=== PATIENT | male | born 1950 | race Caucasian/White ===

== ENCOUNTER 2020-08-06 12:12 | Inpatient (IN) ==
[~2020-08-06 12:12] MED LIST: CLOPIDOGREL BISULFATE 300 MG TAB PO STA; HEPARIN (PORCINE) 1000 UNIT/ML 10 ML (CATH LAB USE ONLY) ONE; MIDAZOLAM HCL 1 MG/ML 2ML VIAL ONE; NITROGLYCERIN SL 0.4 MG/TAB TAB SL PRN; NITROGLYCERIN/D5W 100MCG/ML 20ML SYR ONE; TICAGRELOR 90 MG TAB PO ONE; fentaNYL citrate 100 MCG/2 ML VIAL ONE; niCARdipine HCL INJ 2.5 MG/ML 10 ML AMP ONE
[2020-08-06] MEDS ORDERED: SODIUM CHLORIDE 0.9% 500 ML IV SCH (12:15)
--- NOTE | 2020-08-06 12:24 | Pre Anesthesia Assessment ---
Date of Service August 06, 2020 Pre Sedation Assessment Cardiovascular RRR, no murmur, no edema Respiratory normal respiratory effort, lungs clear to auscultation Pre-Sedation Airway Assessment Smoking Status: Never smoker Hx Sleep Apnea: No Hx Difficult Intubation: No Short, Thick Neck: No Thyromental Distance: > or= 3.5 Finger Breadths Oral Cavity: + WNL Mallampati Class: III ASA: ASA4 Procedure Planning Contraindications for Sedation: none Current Medications Reviewed: Yes Notes The planned sedation has been discussed with the patient. Informed Consent was obtained. I have identified the patient, determined the appropriateness of sedation and have assessed the patient immediately prior to the procedure. All medicine(s) and interventions are by my order.
--- NOTE | 2020-08-06 12:25 | Cardiology Consultation ---
Date of Consultation August 06, 2020 Assessment & Plan (1) Acute LA: Presentation consistent with anterior STEMI and recommend proceeding with emergent cardiac catheterization and likely primary PCI. No apparent contraindications to procedure. Discussed risks, benefits, alternatives of procedure with patient and they are willing to proceed. Given IV heparin and ticagrelor 180 mg in the ED. Further recommendations pending findings of coronary angiography. History of Present Illness History of Present Illness 70-year-old male here with acute chest pain and ECG concerning for acute LA. Patient seen emergently in the ED after heart alert activated from the field. No prior cardiac history. Cardiac risk factors include type 2 diabetes, hypertension, dyslipidemia and family history of premature CAD. Other medical issues include osteoarthritis. 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 Describes substernal pain with associated nausea, diaphoresis. Denies si milar symptoms in the past. Initially presented to his PCP where ECG showed right bundle branch block with anterior ST elevations. Given 2 sublingual nitroglycerin with SBP to the 90s. Chest pain at time of arrival 3-08/11. Hemodynamically stable. EKG again showed anterior ST elevations. Allergies Allergy/AdvReac Type Severity Reaction Status Date / Time Sulfa (Sulfonamide Allergy Unknown HIVES Unverified 02/23/20 23:00 Antibiotics) Penicillins AdvReac Mild NAUSEA, Unverified 02/23/20 23:00 VOMITING Home Medications Medication Instructions Recorded Confirmed Type diclofenac sodium 75 mg PO BID 02/23/20 08/06/20 History lisinopril 10 mg PO DAILY 02/23/20 08/06/20 History metformin 1,000 mg PO BID 02/23/20 08/06/20 History rosuvastatin 5 mg PO DAILY 02/23/20 08/06/20 History cyanocobalamin (vitamin B-12) 1,000 mcg PO DAILY 08/06/20 08/06/20 History Patient History Medical History AAA (abdominal aortic aneurysm) Arthritis Hypercholesterolemia Hypertension Hypoglycemic episode in patient with diabetes mellitus Rheumatoid arthritis T2DM (type 2 diabetes mellitus) Surgical History History of colonoscopy S/P rotator cuff repair Family History Father Myocardial infarction, Onset Age: 63 Mother , 78 Myocardial infarction Diabetes Brother Myocardial infarction, Onset Age: 53 Sister Myocardial infarction, Onset Age: 63 Coronary heart disease Social History Smoking Status: Never smoker packs per day: 1; Years Smoked: 15; Hx Alcohol Use: No Hx Substance Use: No Preferred Language: Polish Communication Ability: Effective Television Installer Helper Required: No Beliefs That Will Affect Care: None marital status: Current Living Situation: Spouse current occupational status: employed 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 Other Information That Helps Us Care for You: No Feels Safe at Home: Yes Safety Concerns: Feels Safe At This Time Assistive Devices: Glasses Review of Systems Review of Systems: Not obtained the setting of emergent situation Physical Exam Physical Exam: General: Uncomfortable, diaphoretic HEENT: Sclerae anicteric, Mask in place Lungs: Clear to auscultation bilaterally Cardiac: Regular rate and rhythm Vascular: 2+ radial bilaterally Abdomen: Soft, nontender Extremities: Well perfused, no peripheral edema Neuro: Nonfocal Psych: Alert orient x3, normal affect and mood PG Care Time/CCT Total # of Minutes Spent Total Time Spent with Patient: Total time spent is greater than 50% in coordination of care (as documented) at patient's floor/unit and/or counseling patient: Coding Level of Care Code 64281 Initial Inpt Care Lvl 3 Diagnoses Acute LA I21.9
--- NOTE | 2020-08-06 12:31 | Emergency Department Note ---
History of Present Illness General Chief Complaint: Heart Alert Stated Complaint: Chest Pain/Heart Alert Source: patient Mode of arrival: EMS Limitations: no limitations History of Present Illness Provider Complaint: chest pain This is a 70-year-old male who presents to the ED with a chief complaint of chest pain. 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 The patient states that he went to the [facility] office to be evaluated by his PCP. A twelve-lead EKG there showed an anterior wall CA. He was sent here by EMS. He was given 324 mg of aspirin p.o. as well as a couple of nitroglycerin sublingual's. EMS reports that the blood pressure dropped about 90 systolic with this. He had some nausea associated as well as some shortness of breath. EMS provided Zofran 4 mg IV and 100 mcg of IV fentanyl. On arrival his pain is about a 3 out of 10. He reports it is a diffuse chest pain/pressure. Nonradiating. He does report a history of non-i nsulin-dependent diabetes. He is also being treated for hypertension and cholesterol. Home Medications Medication Instructions Recorded Confirmed Type aspirin 81 mg PO DAILY 02/23/20 02/23/20 History diclofenac sodium 75 mg PO BID 02/23/20 02/23/20 History lisinopril 10 mg PO DAILY 02/23/20 02/23/20 History metformin 1,000 mg PO BID 02/23/20 02/23/20 History rosuvastatin 5 mg PO DAILY 02/23/20 02/23/20 History lidocaine 1 patch TOP DAILY #15 ea 02/24/20 Rx tramadol 50 mg PO Q8H PRN #9 tab 02/24/20 Rx Allergies Allergy/AdvReac Type Severity Reaction Status Date / Time Sulfa (Sulfonamide Allergy Unknown HIVES Unverified 02/23/20 23:00 Antibiotics) Penicillins AdvReac Mild NAUSEA, Unverified 02/23/20 23:00 VOMITING Past Med/Surg History Medical History (Updated 08/06/20 @ 12:31 by [place] Reed MD) Arthritis Hypercholesterolemia Hypertension Hypoglycemic episode in patient with diabetes mellitus Rheumatoid arthritis Surgical History S/P rotator cuff repair Family History (Updated 08/06/20 @ 12:28 by Uzair Dickey DO) Other Myocardial infarction Social History Smoking Status: Never smoker Preferred Language: Japanese Feels Safe at Home: Yes Review of Systems A total of 10 systems reviewed and were otherwise negative Physical Exam Vital Signs Vital Signs - 24 hr 08/06/20 12:15 Temperature 36.5 C Temperature Source Oral Pulse Rate 94 H Pulse Rhythm Regular Pulse Strength Normal Respiratory Rate 20 Respiratory Effort / Characteristics Non-Labored Spontaneous Respiratory Depth Normal Respiratory Pattern Regular Blood Pressure 101/76 Blood Pressure Mean 84 Blood Pressure Position Sitting Pulse Oximetry 94 Oxygen Delivery Method Room Air Sepsis Recent Fever Within 48 Hours No Sepsis New/Unexplained Change in Mental Status No Sepsis Action Taken by Nursing No Action Required CONSTITUTIONAL/VITAL SIGNS: Reviewed / noted above. GENERAL: Non-toxic in appearance. INTEGUMENTARY: Warm, dry, and [place]. HEAD: Normocephalic. EYES: without scleral icterus or trauma. ENT/OROPHARYNX: clear and moist. LYMPHADENOPATHY/NECK: Is supple without lymphadenopathy or meningismus. RESPIRATORY: Lungs clear and equal. CARDIOVASCULAR: Regular rate and rhythm. GI/ABDOMEN: Soft and nontender. No organomegaly or pulsatile mass. No rebound or guarding. Normal bowel sounds. EXTREMITIES: Warm and well perfused. BACK: No CVA tenderness. NEUROLOGICAL: Intact without focal deficits. PSYCHIATRIC: normal affect. MUSCULOSKELETAL: Normally developed with good muscle tone. TRIAGE NURSING DOCUMENTATION REVIEWED. Course Administered Medications Discontinued Medications Eptifibatide (Eptifibatide 2 Mg/Ml 10 Ml Vial (Regulatory Affairs Director Use Only)) Confirm A dministered Dose 20 mg IV .STK-MED ONE Stop: 08/06/20 13:46 Last Admin: 08/06/20 14:08 Dose: 10.7 ml Documented by: [id number] Fentanyl Citrate (Fentanyl Citrate 100 Mcg/2 Ml Vial) Confirm Administered Dose 100 mcg .ROUTE .STK-MED ONE Stop: 08/06/20 12:06 Last Admin: 08/06/20 14:04 Dose: 100 mcg Documented by: [id number] Fentanyl Citrate (Fentanyl Citrate 100 Mcg/2 Ml Vial) Confirm Administered Dose 100 mcg .ROUTE .STK-MED ONE Stop: 08/06/20 13:36 Last Increment: 08/06/20 14:07 Dose: 25 mcg Documented by: [id number] Heparin Sodium (Porcine) (Heparin (Porcine) 1000 Unit/Ml 10 Ml (Regulatory Affairs Director Use Only)) Confirm Administered Dose 10,000 units .ROUTE .STK-MED ONE Stop: 08/06/20 12:06 Last Admin: 08/06/20 14:06 Dose: 10,000 units Documented by: [id number] Heparin Sodium (Porcine) (Heparin (Porcine) 1000 Unit/Ml 10 Ml (Regulatory Affairs Director Use Only)) Confirm Administered Dose 10,000 units .ROUTE .ST-MED ONE Stop: 08/06/20 12:55 Last Admin: 08/06/20 14:07 Dose: 8,000 units Documented by: [id number] Heparin Sodium/Sodium Chloride (Heparin In Nss Infusion 1000 Unit/500 Ml (2 U/Ml) Bag) Confirm Administered Dose 3,000 units IV .[facility] ONE Stop: 08/06/20 12:07 Last Admin: 08/06/20 13:20 Dose: 3,000 units Documented by: [id number] Midazolam HCl (Midazolam Hcl 1 Mg/Ml 2ml Vial) Confirm Administered Dose 2 mg .ROUTE .ST-MED ONE Stop: 08/06/20 12:07 Last Admin: 08/06/20 13:21 Dose: 2 mg Documented by: [id number] Midazolam HCl (Midazolam Hcl 1 Mg/Ml 2ml Vial) Confirm Administered Dose 2 mg .ROUTE .ST-MED ONE Stop: 08/06/20 13:16 Last Admin: 08/06/20 14:07 Dose: 2 mg Documented by: [id number] Midazolam HCl (Midazolam Hcl 1 Mg/Ml 2ml Vial) Confirm Administered Dose 2 mg .ROUTE .[place]-MED ONE Stop: 08/06/20 13:36 Last Increment: 08/06/20 14:08 Dose: 1 mg Documented by: [id number] Nicardipine HCl (Nicardipine Hcl Inj 2.5 Mg/Ml 10 Ml Amp) Confirm Administered Dose 25 mg .ROUTE .ST[facility]ockets-MED ONE Stop: 08/06/20 12:06 Last Admin: 08/06/20 13:20 Dose: 25 mg Documented by: [id number] Nitroglycerin/Dextrose (Nitroglycerin/D5w 100mcg/Ml 20ml Syr) Confirm Administered Dose 2,000 mcg .ROUTE .[facility]-MED ONE Stop: 08/06/20 12:07 Last Admin: 08/06/20 13:21 Dose: 2,000 mcg Documented by: [id number] Norepinephrine Bitartrate (Norepinephrine Bitartrate 1 Mg/Ml 4 Ml Vial (Regulatory Affairs Director Use Only)) Confirm Administered Dose 8 mg .ROUTE .STK-MED ONE Stop: 08/06/20 12:34 Last Admin: 08/06/20 14:07 Dose: Not Given Documented by: [id number] Ticagrelor (Ticagrelor 90 Mg Tab) Confirm Administered Dose 180 mg PO .STK-MED ONE Stop: 08/06/20 12:13 Last Admin: 08/06/20 13:22 Dose: 180 mg Documented by: [id number] Medical Decision Making Differential Diagnosis The differential that was considered includes acute myocardial infarction, acute coronary syndrome, myocarditis, pericarditis, pericardial effusions /tamponade, esophageal perforation, thoracic aortic dissection, pulmonary embolism, pneumonia, pneumothorax, pancreatitis, shingles, acute cholecystitis, perforated abdominal viscus. Medical Records Attestation: I reviewed the patient's medical records. Home Medications Current Medication List: was personally reviewed by me Laboratory Data Attestation: I reviewed the patient's lab results. Result diagrams: 08/06/20 12:19 08/06/20 12:19 Labs: Lab Results 08/06/20 08/06/20 08/06/20 Range/Units 12:19 12:19 12:19 WBC 9.59 (4.8-10.8) K/uL RBC 4.16 L (4.7-6.1) M/uL Hgb 14.1 (14.0-18.0) g/dL Hct 41.2 L (42-52) % MCV 99.0 (80-100) fL MCH 33.9 (25-34) pg MCHC 34.2 (32-36) g/dL RDW Std Deviation 50.3 H (36.4-46.3) fL RDW Coeff of Kev 14.0 (11.5-14.5) % Plt Count 195 (130-400) K/uL MPV 9.3 (7.4-10.4) fL Immature Gran % (Auto) 0.4 % Neut % (Auto) 69.9 % Lymph % (Auto) 22.4 % Greer % (Auto) 6.8 % Eos % (Auto) 0.2 % Baso % (Auto) 0.3 % Neut # (Auto) 6.70 H (1.4-6.5) K/uL Lymph # (Auto) 2.15 (1.2-3.4) K/uL Greer # (Auto) 0.65 H (0.11-0.59) K/uL Eos # (Auto) 0.02 (0-0.5) K/uL Baso # (Auto) 0.03 (0-0.2) K/uL Immature Gran # (Auto) 0.04 H (0.00-0.02) K/uL PT 10.3 (9.0-12.0) Seconds INR 1.0 (0.9-1.1) APTT 21.9 (21.0-31.0) Seconds PTT Ratio 0.8 Sodium 139 (136-145) mmol/L Potassium 4.3 (3.5-5.1) mmol/L Chloride 112 H (98-107) mmol/L Carbon Dioxide 17 L (21-32) mmol/L Anion Gap 10.0 (3-11) BUN 24 H (7-18) mg/dl Creatinine 1.41 H (0.6-1.4) mg/dl Est Cr Clr Drug Dosing 62.0 ml/min Est GFR ( Amer) 57.7 Est GFR (Non-Af Amer) 49.8 BUN/Creatinine Ratio 17.0 (10-20) Glucose 234 H (70-99) mg/dl Calcium 8.9 (8.5-10.1) mg/dl Magnesium 1.8 (1.8-2.4) mg/dl Total Bilirubin 0.4 (0.2-1) mg/dl AST 11 L (15-37) U/L ALT 30 (12-78) U/L Alkaline Phosphatase 51 (45-117) U/L Total Creatine Kinase 77 (39-308) U/L CK-MB (CK-2) 3.0 (0.5-3.6) ng/ml CK/CKMB % Calc 3.9 H (0-3.0) Troponin I 0.055 H* (0-0.045) ng/ml Total Protein 7.0 (6.4-8.2) gm/dl Albumin 3.7 (3.4-5.0) gm/dl Globulin 3.3 (2.5-4.0) gm/dl Albumin/Globulin Ratio 1.1 (0.9-2) Lipase 93 (73-393) U/L TSH 0.876 (0.300-4.500) uIu/ml ECG Data Attestation: I personally reviewed and interpreted this ECG as follows: Indication: chest pain Rate (beats per minute): 90 Rhythm: normal sinus Findings: + RBBB and + ST elevation (Anterior); no PVC Change: the following changes noted (ST elevation is now noted compared to February 2020 from the [facility] office.) MDM Narrative This is a 70-year-old male who presents to the ED with a chief complaint of chest pain that started around 9:30 AM. Prehospital EKG shows acute anterior wall CA. Heart alert was called prior to the patient's arrival. The patient re ceived p.o. aspirin, IV Zofran, IV fentanyl, 2 sublingual nitroglycerin in route. Here he received p.o. Brilinta and IV heparin bolus. The patient was evaluated by the admitting counselor, Dr. Reed, who took the patient to the Regulatory Affairs Director for further intervention. Impression & Plan Acute anterior wall CA Critical Care Time Critical Care Time: Yes Total Critical Care Time: 30 I have personally spent 30 minutes of critical care time in the direct managemen t of this patient. This includes bedside care, interpretation of diagnostic studies, and testing, discussion with consultants, patient, and family members, and other required patient management activities. This 30 minutes is in excess of all separately billable procedures. Discharge Plan Visit Data Chief Complaint: Heart Alert Stated Complaint: Chest Pain/Heart Alert ED Provider: Uzair Dickey Discharge Problem: Acute anterior wall CA Patient Disposition: Admitted As Inpatient Discharge Instructions Interventions: ED Discharge Assessment Last Done: 08/06/20 12:25
[2020-08-06 12:32] LABS: Basophils # (auto) 0.03 K/uL (0-0.2); Basophils % (auto) 0.3 %; Eosinophils # (auto) 0.02 K/uL (0-0.5); Eosinophils % (auto) 0.2 %; Hematocrit (blood only) 41.2 % (42-52); Hemoglobin 14.1 g/dL (14.0-18.0); Immature Granulocytes # (auto) 0.04 K/uL (0.00-0.02); Immature Granulocytes % (auto) 0.4 %; Lymphocytes # (auto) 2.15 K/uL (1.2-3.4); Lymphocytes % (auto) 22.4 %; Mean Corpuscular Hemoglobin 33.9 pg (25-34); Mean Corpuscular Hgb Conc 34.2 g/dL (32-36); Mean Platelet Volume 9.3 fL (7.4-10.4); Monocytes # (auto) 0.65 K/uL (0.11-0.59); Monocytes % (auto) 6.8 %; Neutrophils % (auto) 69.9 %; Platelet Count 195 K/uL (130-400); RDW Standard Deviation 50.3 fL (36.4-46.3); Red Blood Count 4.16 M/uL (4.7-6.1); White Blood Count 9.59 K/uL (4.8-10.8)
[2020-08-06] MEDS ORDERED: NOREPINEPHRINE BITARTRATE 1 MG/ML 4 ML VIAL (CATH LAB USE ONLY) ONE (12:33)
[2020-08-06 12:46] LABS: Albumin Level 3.7 gm/dl (3.4-5.0); Calcium 8.9 mg/dl (8.5-10.1); Est GFR (African American) 57.7; Est GFR (Non-African American) 49.8; Magnesium 1.8 mg/dl (1.8-2.4); Potassium 4.3 mmol/L (3.5-5.1)
[2020-08-06] MEDS ORDERED: HEPARIN (PORCINE) 1000 UNIT/ML 10 ML (CATH LAB USE ONLY) ONE (12:54)
[2020-08-06 13:01] LABS: Partial Thromboplastin Ratio 0.8; Partial Thromboplastin Time 21.9 Seconds (21.0-31.0); Prothrombin Time 10.3 Seconds (9.0-12.0)
[2020-08-06 13:04] LABS: Albumin Globulin Ratio 1.1 (0.9-2); Bilirubin,Total 0.4 mg/dl (0.2-1); Globulin 3.3 gm/dl (2.5-4.0); Thyroid Stimulating Hormone 0.876 uIu/ml (0.300-4.500); Troponin I 0.055 ng/ml (0-0.045)
[2020-08-06] MEDS ORDERED: MIDAZOLAM HCL 1 MG/ML 2ML VIAL ONE ×2 (13:15→13:35)
[2020-08-06] MEDS ORDERED: fentaNYL citrate 100 MCG/2 ML VIAL ONE (13:35)
[2020-08-06] MEDS ORDERED: EPTIFIBATIDE 0.75 MG/ML 75MG VIAL (CATH LAB USE ONLY) ONE (13:45)
[2020-08-06] MEDS ORDERED: EPTIFIBATIDE 2 MG/ML 10 ML VIAL (CATH LAB USE ONLY) IV ONE (13:45)
--- NOTE | 2020-08-06 14:11 | Post Anesthesia Assessment ---
Date of Service August 06, 2020 Post Sedation Assessment Vital Signs Temp Pulse Resp BP Pulse Ox 08/06/20 12:15 97.7 F 94 H 20 101/76 94 Recovery Score Activity: Moves 4 extremities Respiration: Deep Breath/Cough Circulation: +/-20% PreAnes Value Consciousness: Fully Awake Oxygen Saturation: O2 needed for >90% Discharge Sedation Level of Care: Fast Track Phase II Post Sedation Plan On clinical assessment, the patient appears to have tolerated the sedation without complications. Patient is recovering as anticipated. Patient will continue to be monitored by nursing and may be discharged when sedation discharge criteria are met per below protocol. Upon Completions of procedure up to 15 minutes continue every 5 minute vital signs and the P.A.R. score; then discharge to a Phase I or Fast Track to Phase II per the following guidelines: * Discharge Patient to appropriate Phase II area if PAR is 8 or greater or return to pre- procedure baseline. The post - procedure orders will be as directed. * If PAR score is less than 8 or not return to pre-procedure baseline then patient will follow Phase I monitoring till PAR is reached for Phase II. The Phase I may be done in procedure room or may call to secure a Phase I area. * If naloxone or flumazenil are used for reversal, hold in Phase I for continued monitoring from when last reversal dose was given for a minimum of 60 minutes or longer pending the nurse and/or physician discretion of patient condition before discharge to Phase II. Please call the Sedation Physician to re-evaluate and complete post-note for discharge to Phase II area. Do NOT discharge from procedure sedation or Phase 1 until post- sedation evaluation note is complete by procedure /sedation MD Sedation Discharge Instructions to be given to the patient at discharge to home.
[2020-08-06] MEDS ORDERED: SODIUM CHLORIDE 0.9% 1000ML 1,000 ML IV SCH (14:15)
[2020-08-06] MEDS ORDERED: ACETAMINOPHEN 325 MG TAB PO PRN (14:15)
[2020-08-06] MEDS ORDERED: ONDANSETRON INJ 2 MG/ML 2 ML VIAL IV PRN (14:15)
[2020-08-06] MEDS ORDERED: NITROGLYCERIN SL 0.4 MG/TAB TAB SL PRN (14:15)
[2020-08-06] MEDS ORDERED: EPTIFIBATIDE BOLUS/DRIP IV STA (14:15)
--- NOTE | 2020-08-06 14:15 | Post Operative Brief Note ---
Cardiology Brief Post Op Date of Surgery August 06, 2020 Pre & Post Diagnosis Anterior STEMI Procedure coronary angiography left heart catheterization PCI to proximal to mid LAD (2 ZARA 3.5 x 30, 3.0 x 12 Jeff) PCI to proximal to mid circumflex (1 ZARA 2.75 x 15 Jeff) Metal Mine Inspector Nolan Reed MD Laboratory Machinist Mitchel Estimated Blood Loss 20 Findings See Below 100% proximal LAD occlusion 95% proximal circumflex Severe disease in non-dominant RCA Fluids - Specimens Specimen Description: -- Anesthesia Type RN Sedation Complications none Disposition Accompanied Patient To Recovery: No Disposition: Surgical ICU Overlapping Procedure I was present for: the critical portions of procedure. I was immediately available: during the entire case. Back up surgeon: was not required during procedure.
[2020-08-06] MEDS ORDERED: ICU PROTOCOL FOR HYPERGLYCEMIA PRN (14:22)
[2020-08-06] MEDS ORDERED: CARBOHYDRATES FOR HYPOGLYCEMIA PO PRN (14:43)
[2020-08-06] MEDS ORDERED: GLUCAGON FOR INJ 1 MG VIAL SQ PRN (14:43)
[2020-08-06] MEDS ORDERED: GLUCOSE 10 TABS/TUBE PO PRN (14:43)
[2020-08-06] MEDS ORDERED: GLUCOSE 40% GEL 15 GM TUBE PO PRN (14:43)
[2020-08-06] MEDS ORDERED: DEXTROSE 50% 50 ML SYRINGE IV PRN (14:43)
--- NOTE | 2020-08-06 14:44 | Electrocardiogram Report ---
Test Reason : Blood Pressure : / mmHG Vent. Rate : 101 BPM Atrial Rate : 101 BPM P-R Int : 168 ms QRS Dur : 118 ms QT Int : 354 ms P-R-T Axes : 056 101 -09 degrees QTc Int : 459 ms Sinus tachycardia Incomplete right bundle branch block Possible Right ventricular hypertrophy ST elevation consider anterolateral injury or acute infarct ACUTE AL / STEMI Abnormal ECG When compared with ECG of 14-OCT-2018 10:39, Acute anterior infarction is now Present Confirmed by Nils Ovalle ([id number]) on 08/06/2020 2:44:07 PM Referred By: Confirmed By:Nils Ovalle
--- NOTE | 2020-08-06 14:47 | Critical Care Consultation ---
Date of Consultation August 06, 2020 Assessment & Plan (1) Acute UT: Reason Critically Ill: 70-year-old male with past medical history of type 2 diabetes, hypertension, dyslipidemia who was admitted due to STEMI, now status post cardiac catheterization with PCI and stenting of the LAD & circumflex. Neuro - CAM ICU: NEGATIVE Sedation: None Analgesia: APAP - No current neurological concerns. Cardiac - STEMI - Transferred to the ICU post cath per hospital protocol - Dual antiplatelet therapy with aspirin and Brilinta daily - Patient's rosuvastatin will be increased to high intensity - Beta-blockade with metoprolol tartrate 12.5 mg p.o. twice daily - Nitroglycerin as needed - Continue Lisinopril 2.5 mg p.o. daily - Continue to trend troponins - Lipid profile and A1c in a.m. - Echo tomorrow Hypertension - Lisinopril and metoprolol as above Dyslipidemia - Rosuvastatin increased to 20 mg p.o. daily Respiratory - - No current respiratory concerns. GI - - Carb consistent heart healthy diet RENAL/LYTES - - No significant electrolyte derangement. - Replace lytes as needed. - - No concerns at this time. ENDO - - DMII - BSG monitoring and management per unit protocol. SSI --> insulin gtt per unit protocol. HEME - - Stable H&H. [Will monitor for any drops in the setting of Heparin gtt] ID - - No concerns for infection at this point. Dispo: ICU for monitoring after cardiac catheterization and PCI Thank you for allowing us to be part of this patient's care. Please refer to Dr. Angeles's documentation for any further recommendations. (2) T2DM (type 2 diabetes mellitus): (3) Hypercholesterolemia: (4) Hypertension: Supervising Physician Co-Signing Physician Notes Dr. Weston was resident physician during care of patient. I separately evaluated patient for potts portions of the history and the exam. I was present during the critical portion of medical decision making, and I discussed the case with the resident. I generally agree with the findings and plan. History of Present Illness Attending Physician: Nolan Reed MD History of Present Illness Nilesh Mckeon is a 70-year old male with past medical history of type 2 diabetes, hypertension, dyslipidemia who came to [facility] with a chief complaint of chest pain and EKG concerning for acute UT. He developed chest pain this morning around 9 or 9:30 AM when he was doing some dana work at home. At that point he presented to his PCPs office where he had a twelve-lead EKG done, which was concerning for anterior STEMI. He received aspirin 324 mg and sublingual nitroglycerin twice. He was then sent to the ED here via EMS. On arrival in the ED here his chest pain was about a 3-4 out of 10; he described it as diffuse pain/pressure, nonradiating. He was seen by Cardiology, who considered the presentation to be consistent with anterior STEMI and recommended proceeding with emergent cardiac catheterization and likely PCI. The patient tolerated the procedure well and has now been transferred to the ICU per hospital protocol following cardiac catheterization. Findings of cath were 100% proximal LAD occlusion, 95% proximal circumflex occlusion, severe disease in nondominant RCA. Underwent stenting of proximal to mid LAD and proximal to mid circumflex. On arrival to the ICU the patient is hemodynamically stable, alert and answering questions appropriately. He denied chest pain or shortness of breath. Allergies Allergy/AdvReac Type Severity Reaction Status Date / Time Sulfa (Sulfonamide Allergy Unknown HIVES Unverified 02/23/20 23:00 Antibiotics) Penicillins AdvReac Mild NAUSEA, Unverified 02/23/20 23:00 VOMITING Home Medications Medication Instructions Recorded Confirmed Type diclofenac sodium 75 mg PO BID 02/23/20 08/06/20 History lisinopril 10 mg PO DAILY 02/23/20 08/06/20 History metformin 1,000 mg PO BID 02/23/20 08/06/20 History rosuvastatin 5 mg PO DAILY 02/23/20 08/06/20 History cyanocobalamin (vitamin B-12) 1,000 mcg PO DAILY 08/06/20 08/06/20 History Patient History Medical History AAA (abdominal aortic aneurysm) Arthritis Hypercholesterolemia Hypertension Hypoglycemic episode in patient with diabetes mellitus Rheumatoid arthritis T2DM (type 2 diabetes mellitus) Surgical History History of colonoscopy S/P rotator cuff repair Family History Father Myocardial infarction, Onset Age: 63 Mother , 78 Myocardial infarction Diabetes Brother Myocardial infarction, Onset Age: 53 Sister Myocardial infarction, Onset Age: 63 Coronary heart disease Social History Smoking Status: Never smoker packs per day: 1; Years Smoked: 15; Hx Alcohol Use: No Hx Substance Use: No Preferred Language: Bhutanese Communication Ability: Effective Plate Mounter Required: No Beliefs That Will Affect Care: None marital status: Current Living Situation: Spouse current occupational status: employed 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 Other Information That Helps Us Care for You: No Feels Safe at Home: Yes Safety Concerns: Feels Safe At This Time Assistive Devices: Glasses Review of Systems Review of Systems: All systems reviewed & are unremarkable except as noted in HPI & below Physical Exam Constitutional: WD/WN, vitals as above + obese, cooperative and comfortable; no acute distress Eyes: PERRL, conjunctivae normal, anicteric sclerae ENMT: external ear and nose normal, oropharynx normal Neck: trachea midline, no thyromegaly normal visual inspection Respiratory: normal respiratory effort, lungs clear to auscultation Auscultation: no crackles, no rales, no rhonchi and no wheezes Cardiovascular: RRR, no murmur, no edema Heart Sounds: normal S1 and normal S2; no gallop, no murmur and no cardiac rub Gastrointestinal (Abdomen): normal bowel sounds, soft, nontender, no hepatosplenomegaly Musculoskeletal: no cyanosis or clubbing, extremities motor strength 5/5 Skin: no rashes, warm and dry Neurologic: CN's II-XI intact bilaterally; no focal motor deficits Psychiatric: A+Ox3, euthymic affect Results & Data Results & Data ([facility]) Vital Signs (Past 12 Hours) Vital Signs Temp Pulse Resp BP Pulse Ox 08/06/20 12:15 36.5 C 94 H 20 101/76 94 Resident Activity Tracking Resident Involvement: Resident Care Provided Care Provided: Adult Hospital Medicine
[2020-08-06] MEDS ORDERED: PHARMACY GLYCEMIC MGMT CONSULT PRN (15:01)
--- NOTE | 2020-08-06 15:07 | Electrocardiogram Report ---
Test Reason : Blood Pressure : / mmHG Vent. Rate : 090 BPM Atrial Rate : 090 BPM P-R Int : 198 ms QRS Dur : 144 ms QT Int : 400 ms P-R-T Axes : 050 116 008 degrees QTc Int : 489 ms Normal sinus rhythm Indeterminate axis Right bundle branch block Inferior infarct , age undetermined Serial changes of evolving Anterior infarct Abnormal ECG When compared with ECG of 06-AUG-2020 12:15, (unconfirmed) Serial changes of evolving Anterior infarct are now Present Confirmed by Nils Ovalle ([id number]) on 08/06/2020 3:07:31 PM Referred By: REFERRED SELF Confirmed By:Nils Ovalle
--- NOTE | 2020-08-06 15:12 | History & Physical Report ---
Date of Service August 06, 2020 Assessment & Plan (1) Acute WA: This is a 70-year-old male who has significant past medical history of T2DM, HTN, HLD, arthritis who presented to ED secondary to chest pain while putting on a roof prior to arrival. He developed substernal chest pain around 9:00 this morning while putting on a roof. S/P PCI to LAD and circumflex. 100% prox LAD occluded with PCI and 2 ZARA. 95% prox circumflex with PCI and 1 ZARA. Severe disease in non dominant RCA. Pt admitted to ICU under drug clerk care continue DAPT with asa and brilinta continue integrilin overnight per Dr. Reed Crestor increased from 5mg to 20mg (pt states had myalgias at 10mg so will need to monitor) placed on metoprolol tartrate 12.5mg bid, up titrate as pressure allows placed on lisinopril 2.5mg daily (home dose is 10mg daily) pressures on lower side post op - can uptitrate as bp allows a1c, lipid panel in a.m. obtain echo cycle trops [employer] cardiology consulted (2) JEMMA (acute kidney injury): baseline cr 1.0 bun/cr 24 and 1.41 receiving gentle IVF, metformin on hold monitor/follow bmp (3) T2DM (type 2 diabetes mellitus): last a1c 6.3 06/26 hold metformin lantus/novolog per protocol glycemic pharmacist consulted - appreciate their management (4) Hypertension: BP controlled continue lisinopril/metoprolol uptitrate as bp allows (5) Hypercholesterolemia: continue statin fasting lipid panel in a.m. (6) DVT prophylaxis: on Integrilin overnight Dispo: ICU PCP: Tomy FULL CODE Pt was seen and examined in collaboration with Dr. Daniels, please see addendum Admission and Anticipated Discharge Date Admission Date: August 06, 2020 History of Present Illness Chief Complaint: Chest pain while putting on a roof prior to arrival. Primary Care Provider: Mario Huitron MD This is a 70-year-old male who has significant past medical history of T2DM, HTN, HLD, arthritis who presented to ED secondary to chest pain while putting on a roof prior to arrival. He developed substernal chest pain around 9:00 this morning while putting on a roof. Due to new onset of chest pain he opted to see PCP for further evaluation. In office EKG revealed new incomplete right bundle branch block with ST elevations anteriorly. He received ASA 324 mg, sublingual nitro and EMS was summoned. Patient was made heart alert on arrival and EKG still revealing signs of anterior STEMI. He underwent emergent cardiac catheterization and PCI. He was found to have a proximal LAD 100% occlusion requiring 2 stents and a 95% proximal circumflex occlusion requiring 1 stent. Post PCI he did develop recurrent ischemic EKG changes. Reevaluation revealed blood clots and stent and he underwent balloon angioplasty and continued on Integrilin. He is currently admitted to the ICU without chest pain. He currently denies any acute concerns. He denies fever, chills, sweats, lightheadedness, dizziness, chest pain, shortness with, palpitations, nausea, vomiting, abdominal pain. Prior to today's evaluation he denies any change in his bowel or urinary habits. He does have history of T2DM on Metformin. His last A1c was 6.3 in June 2020. 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 He does not smoke or use alcohol. He did smoke for 15 pack years approximately 25 years ago. He does have significant family history of cardiac disease in both parents as well as brother and sister. Allergies Allergy/AdvReac Type Severity Reaction Status Date / Time Sulfa (Sulfonamide Allergy Unknown HIVES Unverified 02/23/20 23:00 Antibiotics) Penicillins AdvReac Mild NAUSEA, Unverified 02/23/20 23:00 VOMITING Home Medications Medication Instructions Recorded Confirmed Type diclofenac sodium 75 mg PO BID 02/23/20 08/06/20 History lisinopril 10 mg PO DAILY 02/23/20 08/06/20 History metformin 1,000 mg PO BID 02/23/20 08/06/20 History rosuvastatin 5 mg PO DAILY 02/23/20 08/06/20 History cyanocobalamin (vitamin B-12) 1,000 mcg PO DAILY 08/06/20 08/06/20 History Past Med/Surg History Medical History AAA (abdominal aortic aneurysm) Arthritis Hypercholesterolemia Hypertension Hypoglycemic episode in patient with diabetes mellitus Rheumatoid arthritis T2DM (type 2 diabetes mellitus) Surgical History History of colonoscopy S/P rotator cuff repair Family History Father Myocardial infarction, Onset Age: 63 Mother , 78 Myocardial infarction Diabetes Brother Myocardial infarction, Onset Age: 53 Sister Myocardial infarction, Onset Age: 63 Coronary heart disease Social History Smoking Status: Never smoker packs per day: 1; Years Smoked: 15; Hx Alcohol Use: No Hx Substance Use: No Preferred Language: Georgian Communication Ability: Effective Class C Truck Driver Required: No Beliefs That Will Affect Care: None marital status: Current Living Situation: Spouse current occupational status: employed 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 Other Information That Helps Us Care for You: No Feels Safe at Home: Yes Safety Concerns: Feels Safe At This Time Assistive Devices: Glasses Review of Systems Review of Systems: All systems reviewed & are unremarkable except as noted in HPI & below Physical Exam Physical Exam: Constitutional: WD/WN, vitals as above, NAD, sitting up in bed, pleasant, conversing easily Head: Normocephalic, Atraumatic Eyes: PERRL, conjunctivae normal, anicteric sclerae ENMT: external ear and nose normal, oropharynx normal Neck: trachea midline, no thyromegaly normal visual inspection Respiratory: normal respiratory effort, lungs clear to auscultation, no wheeze, rales, rhonchi. Normal insp/exp effort, no accessory muscle use Cardiovascular: RRR, no murmur, trace pretibial edema, radial band 2 RUE vessels: no JVD or carotid bruit Chest: normal inspection of chest Abdomen: normal bowel sounds, soft, nontender, no hepatosplenomegaly Musculoskeletal: no cyanosis or clubbing, extremities motor strength 5/5 Skin: no rashes, warm and dry normal turgor Neurologic: PERRL, EOMI, accommodation nl, no face palsy, no dysarthria CN's II-XI intact bilaterally and moves all extremities Psychiatric: A+Ox3, euthymic affect Lymphatic: no cervical or axillary lymphadenopathy : deferred Results & Data Results & Data ([facility]) Vital Signs (Past 12 Hours) Vital Signs Temp Pulse Resp BP Pulse Ox 08/06/20 12:15 36.5 C 94 H 20 101/76 94 Diagnostic Findings Procedure coronary angiography left heart catheterization PCI to proximal to mid LAD (2 ZARA 3.5 x 30, 3.0 x 12 [place]) PCI to proximal to mid circumflex (1 ZARA 2.75 x 15 [place]) Professional Bass Fisherman Nolan Reed MD Hobber Mitchel Estimated Blood Loss 20 Findings See Below 100% proximal LAD occlusion 95% proximal circumflex Severe disease in non-dominant RCA Medications Administered Discontinued Medications Eptifibatide (Eptifibatide 2 Mg/Ml 10 Ml Vial (Study Abroad Advisor Use Only)) Confirm Administered Dose 20 mg IV .STK-MED ONE Stop: 08/06/20 13:46 Last Admin: 08/06/20 14:08 Dose: 10.7 ml Documented by: [id number] Fentanyl Citrate (Fentanyl Citrate 100 Mcg/2 Ml Vial) Confirm Administered Dose 100 mcg .ROUTE .STK-MED ONE Stop: 08/06/20 12:06 Last Admin: 08/06/20 14:04 Dose: 100 mcg Documented by: [id number] Fentanyl Citrate (Fentanyl Citrate 100 Mcg/2 Ml Vial) Confirm Administered Dose 100 mcg .ROUTE .STK-MED ONE Stop: 08/06/20 13:36 Last Increment: 08/06/20 14:07 Dose: 25 mcg Documented by: [id number] Heparin Sodium (Porcine) (Heparin (Porcine) 1000 Unit/Ml 10 Ml (Study Abroad Advisor Use Only)) Confirm Administered Dose 10,000 units .ROUTE .STK-MED ONE Stop: 08/06/20 12:06 Last Admin: 08/06/20 14:06 Dose: 10,000 units Documented by: [id number] Heparin Sodium (Porcine) (Heparin (Porcine) 1000 Unit/Ml 10 Ml (Study Abroad Advisor Use Only)) Confirm Administered Dose 10,000 units .ROUTE .STK-MED ONE Stop: 08/06/20 12:55 Last Admin: 08/06/20 14:07 Dose: 8,000 units Documented by: [id number] Heparin Sodium/Sodium Chloride (Heparin In Nss Infusion 1000 Unit/500 Ml (2 U/Ml) Bag) Confirm Administered Dose 3,000 units IV .STK-MED ONE Stop: 08/06/20 12:07 Last Admin: 08/06/20 13:20 Dose: 3,000 units Documented by: [id number] Midazolam HCl (Midazolam Hcl 1 Mg/Ml 2ml Vial) Confirm Administered Dose 2 mg .ROUTE .STK-MED ONE Stop: 08/06/20 12:07 Last Admin: 08/06/20 13:21 Dose: 2 mg Documented by: [id number] Midazolam HCl (Midazolam Hcl 1 Mg/Ml 2ml Vial) Confirm Administered Dose 2 mg .ROUTE .STK-MED ONE Stop: 08/06/20 13:16 Last Admin: 08/06/20 14:07 Dose: 2 mg Documented by: [id number] Midazolam HCl (Midazolam Hcl 1 Mg/Ml 2ml Vial) Confirm Administered Dose 2 mg .ROUTE .STK-MED ONE Stop: 08/06/20 13:36 Last Increment: 08/06/20 14:08 Dose: 1 mg Documented by: [id number] Nicardipine HCl (Nicardipine Hcl Inj 2.5 Mg/Ml 10 Ml Amp) Confirm Administered Dose 25 mg .ROUTE .STK-MED ONE Stop: 08/06/20 12:06 Last Admin: 08/06/20 13:20 Dose: 25 mg Documented by: [id number] Nitroglycerin/Dextrose (Nitroglycerin/D5w 100mcg/Ml 20ml Syr) Confirm Administered Dose 2,000 mcg .ROUTE .STK-MED ONE Stop: 08/06/20 12:07 Last Admin: 08/06/20 13:21 Dose: 2,000 mcg Documented by: [id number] Norepinephrine Bitartrate (Norepinephrine Bitartrate 1 Mg/Ml 4 Ml Vial (Study Abroad Advisor Use Only)) Confirm Administered Dose 8 mg .ROUTE .STK-MED ONE Stop: 08/06/20 12:34 Last Admin: 08/06/20 14:07 Dose: Not Given Documented by: [id number] Ticagrelor (Ticagrelor 90 Mg Tab) Confirm Administered Dose 180 mg PO .STK-MED ONE Stop: 08/06/20 12:13 Last Admin: 08/06/20 13:22 Dose: 180 mg Documented by: [id number] ECG Rate (beats per minute): 101 Rhythm: sinus tachycardia Findings: + RBBB and + acute ischemic change COVID-19 Results Results COVID-19 Adm Lab Results: RBC 4.16 M/uL (4.7-6.1) L 08/06/20 WBC 9.59 K/uL (4.8-10.8) 08/06/20 Hgb 14.1 g/dL (14.0-18.0) 08/06/20 Hct 41.2 % (42-52) L 08/06/20 Plt Count 195 K/uL (130-400) 08/06/20 Neutrophils (%) (Auto) 69.9 % 08/06/20 Lymphocytes (%) (Auto) 22.4 % 08/06/20 Monocytes # (Auto) 0.65 K/uL (0.11-0.59) H 08/06/20 Eosinophils # (Auto) 0.02 K/uL (0-0.5) 08/06/20 Immature Granulocyte % (Auto) 0.4 % 08/06/20 Neutrophils # (Auto) 6.70 K/uL (1.4-6.5) H 08/06/20 Lymphocytes # (Auto) 2.15 K/uL (1.2-3.4) 08/06/20 Monocytes # (Auto) 0.65 K/uL (0.11-0.59) H 08/06/20 Eosinophils # (Auto) 0.02 K/uL (0-0.5) 08/06/20 Basophils # (Auto) 0.03 K/uL (0-0.2) 08/06/20 Immature Granulocyte # (Auto) 0.04 K/uL (0.00-0.02) H 08/06/20 Na 139 mmol/L (136-145) 08/06/20 K 4.3 mmol/L (3.5-5.1) 08/06/20 Cl 112 mmol/L (98-107) H 08/06/20 CO2 17 mmol/L (21-32) L 08/06/20 Anion Gap 10.0 (3-11) 08/06/20 BUN 24 mg/dl (7-18) H 08/06/20 Creatinine 1.41 mg/dl (0.6-1.4) H 08/06/20 BUN/Creatinine Ratio 17.0 (10-20) 08/06/20 Glucose Level 234 mg/dl (70-99) H 08/06/20 Ca 8.9 mg/dl (8.5-10.1) 08/06/20 Total Bilirubin 0.4 mg/dl (0.2-1) 08/06/20 AST/SGOT 11 U/L (15-37) L 08/06/20 ALT/SGPT 30 U/L (12-78) 08/06/20 Alkaline Phosphatase 51 U/L (45-117) 08/06/20 Total Protein 7.0 gm/dl (6.4-8.2) 08/06/20 Albumin 3.7 gm/dl (3.4-5.0) 08/06/20 Globulin 3.3 gm/dl (2.5-4.0) 08/06/20 Albumin/Globulin Ratio 1.1 (0.9-2) 08/06/20 Total CK 77 U/L (39-308) 08/06/20 Troponin I 0.055 ng/ml (0-0.045) H* 08/06/20 PTT 21.9 Seconds (21.0-31.0) 08/06/20 INR 1.0 (0.9-1.1) 08/06/20 Code Status & VTE Plan Code Status Full Code VTE Prophylaxis Plan VTE Prophylaxis will be ordered: Yes Supervising Physician Co-Signing Physician Notes Patient seen and examined by me, care coordinated with Joanna Lee PA-C, please refer to her note above for further detail. This is a 70 y/o male who has significant past medical history of T2DM, HTN, HLD, arthritis who presents with chest pain, which started this AM while putting on a roof. Was initially evaluated by his family care doctor, and then was sent to the hospital for acute [place], pt underwent PCI to LAD (2 ZARA) and proximal circumflex (1 ZARA). Currently he is lying in bed, in no acute distress. Denies any chest pain or shortness of breath. He does have supplemental oxygen on, 3L via nasal cannula. He is speaking in full sentences, comfortably, no accessory muscle use. He is alert and oriented and answering questions appropriately. Lungs are clear to auscultation bilaterally, without any wheezing rhonchi or crackles. Heart sounds regular. Abdomen is soft, obese, nondistended, with positive bowel sounds. Moves all 4 extremities spontaneously and to difficulty. There is no lower extremity edema. Skin is warm dry, well-perfused. Reviewed recommendations from Dr. Reed, and will further discuss with [facility] cardiology and obtain echocardiogram. Reviewed current medications. We will monitor closely in ICU. A. Knab, MD
--- NOTE | 2020-08-06 15:19 | Pharmacy Report ---
Pharmacy Glycemic Short Note 2 - Date of Service August 06, 2020 - Glycemic Short BSG Results (Last 24 hours): 08/06/20 08/06/20 12:19 14:20 Glucose 234 H POC Glucose 159 H OUTPATIENT ANTIDIABETIC REGIMEN: * Metformin 1000 mg BID * A1c Pending; per physician note 6.3% in June 2020 ASSESSMENT: * CHARLETTE is admitted ICU post PCI for STEMI. He does have a history of type II diabetes. Would like tight glycemic control in STEMI setting. * Will begin Novolog weight based stress of 2 parameters and lantus scale for dinner. Overnight checks. * Will dose lantus with scale initially with dinner, additional may be ordered HS if BSGs elevated PLAN FOR INPATIENT GLYCEMIC CONTROL: * Hold outpatient oral diabetes medications * Basal insulin * Lantus 0-15 units per scale x 1; additional doses to be decided * Bolus insulin * NovoLog per scale ACHS or Q6hrs while NPO * Goal Range: Low 110 mg/dL - High 140 mg/dL * Correction Factor: 20 mg/dL/unit * Nutritional / Prandial insulin per carb ratio of 1 unit per 7 grams CHO consumed PLAN FOR DISCHARGE: * tbd
[2020-08-06] MEDS: EPTIFIBATIDE 75 MG/100 ML VIAL IV SCH ×3 (16:16→23:57)
[2020-08-06] MEDS: INSULIN ASPART 100 UNITS/ML 3 ML PEN SC SCH ×2 (16:18→21:21)
[2020-08-06] MEDS ORDERED: INSULIN GLARGINE SOLOSTAR 100 UNITS/ML 3 ML PEN SC ONE (16:30)
--- NOTE | 2020-08-06 17:41 | Cardiology Consultation ---
Date of Consultation August 06, 2020 Assessment & Plan (1) ST elevation myocardial infarction (STEMI) of anterior wall: Patient status post PCI, 2 drug-eluting stents to the mid LAD, 1 drug- eluting stent to the mid circumflex. Patient was found to have 100% proximal LAD occlusion for which he underwent PCI. He then underwent PCI of the circumflex. Recurrent EKG changes were then noted, and he was found to have a thrombotic occlusion of the LAD for which repeat intervention was performed and the patient was transferred to the intensive care unit on an Integrilin infusion. Severe residual disease in a small nondominant RCA noted. Proceed with medical therapy to include aspirin, Brilinta, Integrilin infusion, lisinopril, rosuvastatin. Proceed with echocardiogram tomorrow. (2) Hypertension: Lisinopril and metoprolol. (3) Hypercholesterolemia: Prior to hospital dose of rosuvastatin 5 mg daily has been increased to 20 mg daily. History of Present Illness Attending Physician: Nolan Reed MD History of Present Illness Mr Mckeon is a 70-year-old male with a past medical history of type 2 diabetes mellitus, hypertension, dyslipidemia, and a 3 cm abdominal aortic aneurysm as noted on duplex performed in June,. 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 He presented to the outpatient [facility] clinic and was transferred to the emergency department via EMS having been diagnosed with an anterior ST segment elevation myocardial infarction. He underwent complex PCI as noted below, and is now recovering in the intensive care unit. Post procedure EKG reveals sinus rhythm, right bundle branch block, and resolution of the previous severe anterior ST elevation. Patient is asymptomatic and in good humor. Allergies Allergy/AdvReac Type Severity Reaction Status Date / Time Sulfa (Sulfonamide Allergy Unknown HIVES Unverified 02/23/20 23:00 Antibiotics) Penicillins AdvReac Mild NAUSEA, Unverified 02/23/20 23:00 VOMITING Home Medications Medication Instructions Recorded Confirmed Type diclofenac sodium 75 mg PO BID 02/23/20 08/06/20 History lisinopril 10 mg PO DAILY 02/23/20 08/06/20 History metformin 1,000 mg PO BID 02/23/20 08/06/20 History rosuvastatin 5 mg PO DAILY 02/23/20 08/06/20 History cyanocobalamin (vitamin B-12) 1,000 mcg PO DAILY 08/06/20 08/06/20 History Patient History Medical History AAA (abdominal aortic aneurysm) Arthritis Hypercholesterolemia Hypertension Hypoglycemic episode in patient with diabetes mellitus Rheumatoid arthritis T2DM (type 2 diabetes mellitus) Surgical History History of colonoscopy S/P rotator cuff repair Family History Father Myocardial infarction, Onset Age: 63 Mother , 78 Myocardial infarction Diabetes Brother Myocardial infarction, Onset Age: 53 Sister Myocardial infarction, Onset Age: 63 Coronary heart disease Social History Smoking Status: Never smoker packs per day: 1; Years Smoked: 15; Hx Alcohol Use: No Hx Substance Use: No Preferred Language: [place] Communication Ability: Effective Performance Engineer Required: No Beliefs That Will Affect Care: None marital status: Current Living Situation: Spouse current occupational status: employed 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 Other Information That Helps Us Care for You: No Feels Safe at Home: Yes Safety Concerns: Feels Safe At This Time Assistive Devices: Glasses Review of Systems Review of Systems: All systems reviewed & are unremarkable except as noted in HPI & below Physical Exam Physical Exam: Temp Pulse Resp BP Pulse Ox 36.5 C 89 19 132/80 90 08/06/20 14:48 08/06/20 16:55 08/06/20 16:55 08/06/20 16:55 08/06/20 16:55 Constitutional: WD/WN, vitals as above Respiratory: normal respiratory effort, lungs clear to auscultation Cardiovascular: RRR, no murmur, no edema Right radial access site with band in place, no ecchymosis. Gastrointestinal (Abdomen): normal bowel sounds, soft, nontender, no hepatosplenomegaly Neurologic: PERRL, EOMI, accommodation nl, no face palsy, no dysarthria Results & Data ([facility]) Vital Signs (Past 12 Hours) Vital Signs Temp Pulse Pulse Resp BP BP Pulse Ox 08/06/20 16:55 89 19 132/80 90 08/06/20 16:24 94 H 20 113/81 92 04/05/21 16:09 81 24 119/78 90 08/06/20 16:00 79 18 91 08/06/20 15:54 82 21 127/79 92 08/06/20 15:40 95 H 21 98/75 L 90 08/06/20 15:24 85 23 126/76 92 08/06/20 15:09 91 H 21 136/90 89 L 08/06/20 15:00 88 17 91 08/06/20 14:54 92 H 28 H 132/81 08/06/20 14:48 36.5 C 88 20 124/72 90 08/06/20 14:45 86 24 88 L 08/06/20 14:33 88 19 124/87 90 08/06/20 14:30 88 20 08/06/20 12:15 36.5 C 94 H 20 101/76 94
[2020-08-06] MEDS ORDERED: INSULIN GLARGINE SOLOSTAR 100 UNITS/ML 3 ML PEN SC SCH (21:00)
[2020-08-06] MEDS: METOPROLOL TARTRATE 25 MG TAB PO SCH (21:20)
--- NOTE | 2020-08-06 22:34 | Cardiac Catheterization ---
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 Cardiac Status Clinical evaluation leading to the procedure CAD Presenation: STEMI Anginal Classification: CCS IV Heart Failure: No Cardiogenic Shock within 24 Hours: No Cardiac Arrest within 24 Hours: No Imaging Studies Past 6 Months: No Stress Studies Past 6 Months: No Diagnostic Physicians Name: Nolan Reed MD Status: Emergency Closure Device Percutaneous Entry Location: Radial Closure Device: Radial Band Recommendations: PCI without planned CABG PCI Indication: Immediate PCI for STEMI Lesion Segment Name: proximal LAD Culprit Artery: Yes Stenosis Prior to Rx (%): 100 Chronic Total Occlusion: No IVUS: No FFR: No Pre-Procedure CAITLIN Flow: 0 Previously Treated Lesion: No Lesion Complexity: Non-High/Non-C Lesion Length (mm): 35 Thrombus Present: Yes Bifurcation Lesion: Yes Guidewire Across Lesion: Stenosis Post-Procedure (%): 0 Post-Procedure CAITLIN Flow: 3 Devices(s) Deployed: Yes Yes Intraprocedure Events Significant Disection: No Perforation: No Cardiac Cath Procedure Full Procedure Date August 06, 2020 Pre-Procedure Diagnosis Pre-Procedure Diagnosis: STEMI AUC Score AUC Score: 9 Post-Procedure Diagnosis Post-Procedure Diagnosis: Severe CAD, Successful PCI and Normal Intracardiac Pressures Procedure(s) Performed Procedure(s) Performed: Coronary Angiography, Left Heart Cath, Drug Eluting Stent and IVUS Inventory Control Assistant Nolan Reed MD Assistant Reading Teacher(s) Mitchel Estimated Blood Loss Estimated Blood Loss: 15 Medication(s) Medication(s): Fentanyl, Heparin, Lidocaine 1%, Nicardipine, Nitroglycerin and Versed Medication(s): Ticagrelor Summary of Findings PatientIndication: STEMI/Heart Alert Access: 6 Fr right radial artery Catheters: EBU 3.5 guide, diagnostic JR4 Findings: LM -large caliber, mildly calcified, 20% distal disease LAD -100% acute proximal occlusion at takeoff of high D1. D1 medium caliber with mild disease. Circumflex -medium caliber, 95% proximal stenosis at takeoff of occluded OM1. 40% distal stenosis. Provides left to right collaterals. RCA - medium caliber, dominant, 95% proximal, 100% mid occlusion after takeoff of large RV branch. Distal vessels partially fill via right to right and [id number] collaterals. LVEDP -31 -- PCI -- Antithrombotic therapy: Heparin, ticagrelor, Integrilin Procedure: Left main cannulated with EBU 3.5 guide BMW wire passed across lesion into distal vessel Proximal to mid LAD lesion predilated with 2.5 and 3.0 compliant balloons [place] IVUS revealed moderately calcified diffuse disease from mid segment back to LAD ostium. Minimal left main disease With the aid of a telescope support catheter dilated lesion stented with 3.5 x 30 mm Central drug-eluting stent extending from ostium to mid segment. Stent post-dilated with 3.75 noncompliant balloon Moderate residual stenosis at distal end of stent covered with overlapping 3.0 x 12 mm Central. Stent postdilated with stent balloon. IC vasodilators administered for spasm Control Director 50 wire navigated into circumflex and across proximal stenosis Proximal stenosis of circumflex dilated with 2.5 balloon With the aid of a telescope support catheter a 2.75 x 15 mm [place] drug-eluting stent delivered across proximal stenosis Stent postdilated with 3.0 NC with mild residual stenosis due to recalcitrant calcium. Wire and support catheter removed. Soon after patient was noted recurrent ST depressions on telemetry monitoring. Repeat angiography revealed apparent thrombus in mid LAD stents IC/IV Integrilin administered Mid LAD stents repostdilated with 3.5 NC balloon. Post inflation no significant residual thrombus noted. CAITLIN-3 flow. No apparent cardiac complications. Arterial Closure: TR band Summary: 1. Anterior STEMI/100% acute proximal LAD occlusion 2. Severe multi-vessel non-culprit coronary artery disease -95% proximal circumflex 95% proximal RCA, 100% mid RCA chronic occlusion. Distal RCA fills via left to right, right to right collaterals 3. Elevated intracardiac filling pressure 4. Successful PCI of proximal to mid LAD with 2 overlapping drug-eluting stents (3.5 x 30, 3.0 x 12 [place]; postdilated with 3.75 NC). Recurrent LAD in-stent thrombus requiring Integrilin and repeat stent post- dilation 5. PCI of proximal to mid circumflex with single drug-eluting stent (2.75 x 15 mm [place]; postdilated with 3.0 NC with residual mild to moderate stenosis). Recommendations: Admit to ICU for continued monitoring Ticagrelor 180 mg in ED Continue Integrilin for 18 hours in the setting of recurrent thrombus Continue dual-antiplatelet therapy for at least 1 year. Trend troponins until peak, Check Echo Uptitrate beta-angelo/SUZANNA as BP allows Consult cardiac Rehab Medical management of residual CAD. If refractory exertional anginal symptoms as an outpatient could consider further attempts at additional dilation of proximal circumflex stent versus stenting of proximal RCA to improve collateral flow Hemodynamics Rest Ao:: 97/66/86 Final Ao: 112/72/92 LV: 112/31 Recommendations Recommendations: PCI without planned CABG Specimens Specimens: None Radiation Exposure (mGy) 6089 Contrast (mls) 160 Fluids (cc crystalloids) Fluids (cc crystalloids): 780 Drains Drains: none Anesthesia moderate [id number] Procedural Complication(s) None Disposition ICU I attest to the content of the Intraoperative Record and any orders documented therein. Any exceptions are noted below. [id number] Card Cath Procedure Codes Cardiac Catheterization Procedure 1: Cardiovascular Cath Procedures: 51265 Coronaries and LHC (+/-LV) Therapeutic Services & Ancillary Proc Procedure 1: Cardiovascular Tx and Anc Procedures: 92426 IV Ultrasound (Coronary or Graft) Moderate Sedation Procedure 1: Sedation/Anesthesia: 41261 Mod Sedation by the same physician;Init15 Min Child Age 5 & Up Procedure 2: Sedation/Anesthesia: 90768 Mod Sedation by the same physician; Ea [id number] Minutes Stenting Procedure 1: Cardiovascular Stent Procedures: 05087 Perc transluminal revascularization of acute sub/total occl, aMI PG Care Time/CCT Total # of Minutes Spent Total Time Spent with Patient: Total time spent is greater than 50% in coordination of care (as documented) at patient's floor/unit and/or counseling patient:
[2020-08-06] MEDS: TICAGRELOR 90 MG TAB PO SCH (23:57)
[2020-08-07] MEDS: INSULIN ASPART 100 UNITS/ML 3 ML PEN SC SCH ×6 (00:11→20:47)
[2020-08-07 05:19] LABS: Basophils # (auto) 0.01 K/uL (0-0.2); Basophils % (auto) 0.1 %; Eosinophils # (auto) 0.01 K/uL (0-0.5); Eosinophils % (auto) 0.1 %; Hematocrit (blood only) 40.9 % (42-52); Immature Granulocytes # (auto) 0.04 K/uL (0.00-0.02); Immature Granulocytes % (auto) 0.3 %; Lymphocytes # (auto) 1.43 K/uL (1.2-3.4); Lymphocytes % (auto) 10.8 %; Mean Corpuscular Hemoglobin 33.9 pg (25-34); Mean Corpuscular Hgb Conc 34.2 g/dL (32-36); Mean Platelet Volume 9.9 fL (7.4-10.4); Monocytes # (auto) 0.78 K/uL (0.11-0.59); Monocytes % (auto) 5.9 %; Neutrophils # (auto) 10.93 K/uL (1.4-6.5); Neutrophils % (auto) 82.8 %; Platelet Count 196 K/uL (130-400); RDW Coefficient of Variation 14.3 % (11.5-14.5); RDW Standard Deviation 51.4 fL (36.4-46.3); Red Blood Count 4.13 M/uL (4.7-6.1)
[2020-08-07 06:04] LABS: BUN Creatinine Ratio 20.4 (10-20); Blood Urea Nitrogen 20 mg/dl (7-18); Calcium 8.6 mg/dl (8.5-10.1); Carbon Dioxide 22 mmol/L (21-32); Chloride 111 mmol/L (98-107); Chol HDL Ratio 2; Cholesterol 108 mg/dl (0-200); Creatinine Clr Calc Pharmacy 91.1 ml/min; Est GFR (African American) 91.8; Est GFR (Non-African American) 79.2; Glucose 134 mg/dl (70-99); HDL Cholesterol 45 mg/dl; LDL Cholesterol Direct 49 mg/dl; Magnesium 1.9 mg/dl (1.8-2.4); Phosphorus 2.4 mg/dl (2.5-4.9); Potassium 4.3 mmol/L (3.5-5.1); Sodium 139 mmol/L (136-145); Triglycerides 82 mg/dl (0-150); VLDL Cholesterol 16 mg/dl
[2020-08-07 06:46] LABS: Estimated Average Glucose 146 mg/dl; Hemoglobin A1C 6.7 % (4.5-5.6)
--- NOTE | 2020-08-07 06:56 | Hospitalist Progress Note ---
Date of Service August 07, 2020 Assessment & Plan (1) Acute [place]: This is a 70-year-old male who has significant past medical history of T2DM, HTN, HLD, arthritis who presented to ED secondary to chest pain while putting on a roof prior to arrival. STEMI S/P PCI to LAD and circumflex. 100% prox LAD occluded with PCI and 2 ZARA. 95% prox circumflex with PCI and 1 ZARA. Severe disease in non dominant RCA. Pt admitted to ICU under nurse paralegal care [facility] cardiology on board continue DAPT with ASA and Brilinta Integrilin infusion d/c Crestor increased from 5mg to 20mg (pt states had myalgias at 10mg so will need to monitor) placed on metoprolol tartrate 12.5mg bid, up titrate as pressure allows placed on lisinopril 2.5mg daily (home dose is 10mg daily) pressures on lower side post op - can uptitrate as bp allows a1c 6.7,Total chol 108, LDL 49, Trig 82, HDL 45 Echo - LVEF 35-40%, large anteroseptal, anterior, anterolateral and apical wall motion abnormality with hypokinesis of segment, Moderate mitral regurg with eccentric jet, mild TR, mild pulm htn PASP 41mmhg, dilated aortic root Final recommendations per cardiology. (2) JEMMA (acute kidney injury): baseline cr 1.0 bun/cr 24 and 1.41 receiving gentle IVF, metformin on hold renal fxn improved to 0.96 (3) T2DM (type 2 diabetes mellitus): a1c today 6.7 hold metformin lantus/novolog per protocol glycemic pharmacist consulted - appreciate their management (4) Hypertension: BP controlled continue lisinopril/metoprolol uptitrate as bp allows (5) Hypercholesterolemia: continue statin Total chol 108, LDL 49, Trig 82, HDL 45 Arthritis pt with b/l hand arthritis takes diclofenac as outpt, advised against in setting of CAD will trial topical diclofenac gel (6) DVT prophylaxis: Off integrilin infusion place on lovenox q24h Dispo: ICU; downgrade to PCU PCP: Tomy FULL CODE Pt was seen and examined in collaboration with Dr. Daniels, please see addendum Admission and Anticipated Discharge Date Admission Date: August 06, 2020 Supervising Physician Co-Signing Physician Notes Patient seen and examined by me, care coordinated with Joanna Lee PA-C. I edited the note above. Nancy Daniels MD Subjective Pt was seen and examined in room 102-1. Follow up STEMI s/p PCI with 3 ZARA. Patient is currently sitting up in the chair, about to eat lunch. No chest pain or shortness of breath reported. He is concerned about his arthritis and not having oral diclofenac. He states tylenol doesn't work. He denies f/c/s, dizziness, lightheaded, n/v/d, abdominal pain. Overall good appetite. He did not sleep at all last night. Review of Systems Review of Systems: All systems reviewed & are unremarkable except as noted in HPI & below Constitutional: no fever and no chills Respiratory: no cough and no dyspnea Cardiovascular: no chest pain and no palpitations Gastrointestinal: no abdominal pain, no nausea and no vomiting Physical Exam Physical Exam: Gen: WD/WN, M, Sitting up in bedside chair, NAD, A&O x3 HEENT: Normocephalic, atraumatic, conjunctivae moist, sclerae anicteric, mucous membranes moist. Lung: Clear to Auscultation bilaterally, no wheezes/rales/rhonchi Heart: Regular rate, regular rhythm, no murmurs, rubs, or gallops Abdomen: Soft, NT, ND +BS x 4 Extremities: No edema Skin: Warm, no rash, negative turgor. Results & Data Results & Data ([facility]) Vital Signs (Past 12 Hours) Vital Signs Pulse Resp BP Pulse Ox 08/07/20 04:00 75 31 H 89 L 08/07/20 03:07 81 15 118/79 91 08/07/20 03:00 76 15 90 08/07/20 02:07 78 17 114/73 92 08/07/20 02:00 77 16 93 08/07/20 01:08 71 85/61 L 92 08/07/20 01:00 77 23 94 08/07/20 00:08 78 15 125/77 92 08/07/20 00:00 82 24 91 08/06/20 23:32 79 25 H 137/87 90 08/06/20 23:02 83 20 117/70 92 08/06/20 23:00 84 19 91 08/06/20 22:32 87 21 140/89 94 08/06/20 22:02 89 14 121/75 92 08/06/20 22:00 91 H 17 94 08/06/20 21:33 93 H 19 147/97 H 93 08/06/20 21:00 81 18 92 08/06/20 20:00 95 H 23 90 08/06/20 19:25 82 22 119/78 93 08/06/20 19:00 81 24 89 L Laboratory Results 08/07/20 08/07/20 08/07/20 Range/Units 04:41 04:41 04:41 WBC 13.20 H (4.8-10.8) K/uL RBC 4.13 L (4.7-6.1) M/uL Hgb 14.0 (14.0-18.0) g/dL Hct 40.9 L (42-52) % MCV 99.0 (80-100) fL MCH 33.9 (25-34) pg MCHC 34.2 (32-36) g/dL RDW Std Deviation 51.4 H (36.4-46.3) fL RDW Coeff of Kev 14.3 (11.5-14.5) % Plt Count 196 (130-400) K/uL MPV 9.9 (7.4-10.4) fL Immature Gran % (Auto) 0.3 % Neut % (Auto) 82.8 % Lymph % (Auto) 10.8 % Montgomery % (Auto) 5.9 % Eos % (Auto) 0.1 % Baso % (Auto) 0.1 % Neut # (Auto) 10.93 H (1.4-6.5) K/uL Lymph # (Auto) 1.43 (1.2-3.4) K/uL Montgomery # (Auto) 0.78 H (0.11-0.59) K/uL Eos # (Auto) 0.01 (0-0.5) K/uL Baso # (Auto) 0.01 (0-0.2) K/uL Immature Gran # (Auto) 0.04 H (0.00-0.02) K/uL PT (9.0-12.0) Seconds INR (0.9-1.1) APTT (21.0-31.0) Seconds PTT Ratio Activ Coag Time Kaolin (94-140) SECONDS Sodium 139 (136-145) mmol/L Potassium 4.3 (3.5-5.1) mmol/L Chloride 111 H (98-107) mmol/L Carbon Dioxide 22 (21-32) mmol/L Anion Gap 6.0 (3-11) BUN 20 H (7-18) mg/dl Creatinine 0.96 D (0.6-1.4) mg/dl Est Cr Clr Drug Dosing 91.1 ml/min Est GFR ( Amer) 91.8 Est GFR (Non-Af Amer) 79.2 BUN/Creatinine Ratio 20.4 H (10-20) Glucose 134 H (70-99) mg/dl POC Glucose (70-99) mg/dl Estimat Average Glucose 146 mg/dl Hemoglobin A1c 6.7 H (4.5-5.6) % Calcium 8.6 (8.5-10.1) mg/dl Phosphorus 2.4 L (2.5-4.9) mg/dl Magnesium 1.9 (1.8-2.4) mg/dl Total Bilirubin (0.2-1) mg/dl AST (15-37) U/L ALT (12-78) U/L Alkaline Phosphatase (45-117) U/L Total Creatine Kinase (39-308) U/L CK-MB (CK-2) (0.5-3.6) ng/ml CK/CKMB % Calc (0-3.0) Troponin I (0-0.045) ng/ml Total Protein (6.4-8.2) gm/dl Albumin (3.4-5.0) gm/dl Globulin (2.5-4.0) gm/dl Albumin/Globulin Ratio (0.9-2) Triglycerides 82 (0-150) mg/dl Cholesterol 108 (0-200) mg/dl LDL Cholesterol Direct 49 mg/dl LDL Cholesterol, Calc Not Reportable VLDL Cholesterol, Calc 16 mg/dl HDL Cholesterol 45 mg/dl Cholesterol/HDL Ratio 2 Lipase (73-393) U/L TSH (0.300-4.500) uIu/ml Nasal Screen MRSA (PCR) (Negative) 08/07/20 08/06/20 08/06/20 Range/Units 02:07 23:59 21:18 WBC (4.8-10.8) K/uL RBC (4.7-6.1) M/uL Hgb (14.0-18.0) g/dL Hct (42-52) % MCV (80-100) fL MCH (25-34) pg MCHC (32-36) g/dL RDW Std Deviation (36.4-46.3) fL RDW Coeff of Kev (11.5-14.5) % Plt Count (130-400) K/uL MPV (7.4-10.4) fL Immature Gran % (Auto) % Neut % (Auto) % Lymph % (Auto) % Montgomery % (Auto) % Eos % (Auto) % Baso % (Auto) % Neut # (Auto) (1.4-6.5) K/uL Lymph # (Auto) (1.2-3.4) K/uL Montgomery # (Auto) (0.11-0.59) K/uL Eos # (Auto) (0-0.5) K/uL Baso # (Auto) (0-0.2) K/uL Immature Gran # (Auto) (0.00-0.02) K/uL PT (9.0-12.0) Seconds INR (0.9-1.1) APTT (21.0-31.0) Seconds PTT Ratio Activ Coag Time Kaolin (94-140) SECONDS Sodium (136-145) mmol/L Potassium (3.5-5.1) mmol/L Chloride (98-107) mmol/L Carbon Dioxide (21-32) mmol/L Anion Gap (3-11) BUN (7-18) mg/dl Creatinine (0.6-1.4) mg/dl Est Cr Clr Drug Dosing ml/min Est GFR ( Amer) Est GFR (Non-Af Amer) BUN/Creatinine Ratio (10-20) Glucose (70-99) mg/dl POC Glucose 144 H 137 H (70-99) mg/dl Estimat Average Glucose mg/dl Hemoglobin A1c (4.5-5.6) % Calcium (8.5-10.1) mg/dl Phosphorus (2.5-4.9) mg/dl Magnesium (1.8-2.4) mg/dl Total Bilirubin (0.2-1) mg/dl AST (15-37) U/L ALT (12-78) U/L Alkaline Phosphatase (45-117) U/L Total Creatine Kinase (39-308) U/L CK-MB (CK-2) (0.5-3.6) ng/ml CK/CKMB % Calc (0-3.0) Troponin I 57.200 H* (0-0.045) ng/ml Total Protein (6.4-8.2) gm/dl Albumin (3.4-5.0) gm/dl Globulin (2.5-4.0) gm/dl Albumin/Globulin Ratio (0.9-2) Triglycerides (0-150) mg/dl Cholesterol (0-200) mg/dl LDL Cholesterol Direct mg/dl LDL Cholesterol, Calc VLDL Cholesterol, Calc mg/dl HDL Cholesterol mg/dl Cholesterol/HDL Ratio Lipase (73-393) U/L TSH (0.300-4.500) uIu/ml Nasal Screen MRSA (PCR) (Negative) 08/06/20 08/06/20 08/06/20 Range/Units 20:05 14:20 14:20 WBC (4.8-10.8) K/uL RBC (4.7-6.1) M/uL Hgb (14.0-18.0) g/dL Hct (42-52) % MCV (80-100) fL MCH (25-34) pg MCHC (32-36) g/dL RDW Std Deviation (36.4-46.3) fL RDW Coeff of Kev (11.5-14.5) % Plt Count (130-400) K/uL MPV (7.4-10.4) fL Immature Gran % (Auto) % Neut % (Auto) % Lymph % (Auto) % Montgomery % (Auto) % Eos % (Auto) % Baso % (Auto) % Neut # (Auto) (1.4-6.5) K/uL Lymph # (Auto) (1.2-3.4) K/uL Montgomery # (Auto) (0.11-0.59) K/uL Eos # (Auto) (0-0.5) K/uL Baso # (Auto) (0-0.2) K/uL Immature Gran # (Auto) (0.00-0.02) K/uL PT (9.0-12.0) Seconds INR (0.9-1.1) APTT (21.0-31.0) Seconds PTT Ratio Activ Coag Time Kaolin (94-140) SECONDS Sodium (136-145) mmol/L Potassium (3.5-5.1) mmol/L Chloride (98-107) mmol/L Carbon Dioxide (21-32) mmol/L Anion Gap (3-11) BUN (7-18) mg/dl Creatinine (0.6-1.4) mg/dl Est Cr Clr Drug Dosing ml/min Est GFR ( Amer) Est GFR (Non-Af Amer) BUN/Creatinine Ratio (10-20) Glucose (70-99) mg/dl POC Glucose 159 H (70-99) mg/dl Estimat Average Glucose mg/dl Hemoglobin A1c (4.5-5.6) % Calcium (8.5-10.1) mg/dl Phosphorus (2.5-4.9) mg/dl Magnesium (1.8-2.4) mg/dl Total Bilirubin (0.2-1) mg/dl AST (15-37) U/L ALT (12-78) U/L Alkaline Phosphatase (45-117) U/L Total Creatine Kinase (39-308) U/L CK-MB (CK-2) (0.5-3.6) ng/ml CK/CKMB % Calc (0-3.0) Troponin I 50.600 H* (0-0.045) ng/ml Total Protein (6.4-8.2) gm/dl Albumin (3.4-5.0) gm/dl Globulin (2.5-4.0) gm/dl Albumin/Globulin Ratio (0.9-2) Triglycerides (0-150) mg/dl Cholesterol (0-200) mg/dl LDL Cholesterol Direct mg/dl LDL Cholesterol, Calc VLDL Cholesterol, Calc mg/dl HDL Cholesterol mg/dl Cholesterol/HDL Ratio Lipase (73-393) U/L TSH (0.300-4.500) uIu/ml Nasal Screen MRSA (PCR) Negative (Negative) 08/06/20 08/06/20 08/06/20 Range/Units 13:17 12:51 12:19 WBC (4.8-10.8) K/uL RBC (4.7-6.1) M/uL Hgb (14.0-18.0) g/dL Hct (42-52) % MCV (80-100) fL MCH (25-34) pg MCHC (32-36) g/dL RDW Std Deviation (36.4-46.3) fL RDW Coeff of Kev (11.5-14.5) % Plt Count (130-400) K/uL MPV (7.4-10.4) fL Immature Gran % (Auto) % Neut % (Auto) % Lymph % (Auto) % Montgomery % (Auto) % Eos % (Auto) % Baso % (Auto) % Neut # (Auto) (1.4-6.5) K/uL Lymph # (Auto) (1.2-3.4) K/uL Montgomery # (Auto) (0.11-0.59) K/uL Eos # (Auto) (0-0.5) K/uL Baso # (Auto) (0-0.2) K/uL Immature Gran # (Auto) (0.00-0.02) K/uL PT (9.0-12.0) Seconds INR (0.9-1.1) APTT (21.0-31.0) Seconds PTT Ratio Activ Coag Time Kaolin 230 H 180 H (94-140) SECONDS Sodium 139 (136-145) mmol/L Potassium 4.3 (3.5-5.1) mmol/L Chloride 112 H (98-107) mmol/L Carbon Dioxide 17 L (21-32) mmol/L Anion Gap 10.0 (3-11) BUN 24 H (7-18) mg/dl Creatinine 1.41 H (0.6-1.4) mg/dl Est Cr Clr Drug Dosing 62.0 ml/min Est GFR ( Amer) 57.7 Est GFR (Non-Af Amer) 49.8 BUN/Creatinine Ratio 17.0 (10-20) Glucose 234 H (70-99) mg/dl POC Glucose (70-99) mg/dl Estimat Average Glucose mg/dl Hemoglobin A1c (4.5-5.6) % Calcium 8.9 (8.5-10.1) mg/dl Phosphorus (2.5-4.9) mg/dl Magnesium 1.8 (1.8-2.4) mg/dl Total Bilirubin 0.4 (0.2-1) mg/dl AST 11 L (15-37) U/L ALT 30 (12-78) U/L Alkaline Phosphatase 51 (45-117) U/L Total Creatine Kinase 77 (39-308) U/L CK-MB (CK-2) 3.0 (0.5-3.6) ng/ml CK/CKMB % Calc 3.9 H (0-3.0) Troponin I 0.055 H* (0-0.045) ng/ml Total Protein 7.0 (6.4-8.2) gm/dl Albumin 3.7 (3.4-5.0) gm/dl Globulin 3.3 (2.5-4.0) gm/dl Albumin/Globulin Ratio 1.1 (0.9-2) Triglycerides (0-150) mg/dl Cholesterol (0-200) mg/dl LDL Cholesterol Direct mg/dl LDL Cholesterol, Calc VLDL Cholesterol, Calc mg/dl HDL Cholesterol mg/dl Cholesterol/HDL Ratio Lipase 93 (73-393) U/L TSH 0.876 (0.300-4.500) uIu/ml Nasal Screen MRSA (PCR) (Negative) 08/06/20 08/06/20 Range/Units 12:19 12:19 WBC 9.59 (4.8-10.8) K/uL RBC 4.16 L (4.7-6.1) M/uL Hgb 14.1 (14.0-18.0) g/dL Hct 41.2 L (42-52) % MCV 99.0 (80-100) fL MCH 33.9 (25-34) pg MCHC 34.2 (32-36) g/dL RDW Std Deviation 50.3 H (36.4-46.3) fL RDW Coeff of Kev 14.0 (11.5-14.5) % Plt Count 195 (130-400) K/uL MPV 9.3 (7.4-10.4) fL Immature Gran % (Auto) 0.4 % Neut % (Auto) 69.9 % Lymph % (Auto) 22.4 % Montgomery % (Auto) 6.8 % Eos % (Auto) 0.2 % Baso % (Auto) 0.3 % Neut # (Auto) 6.70 H (1.4-6.5) K/uL Lymph # (Auto) 2.15 (1.2-3.4) K/uL Montgomery # (Auto) 0.65 H (0.11-0.59) K/uL Eos # (Auto) 0.02 (0-0.5) K/uL Baso # (Auto) 0.03 (0-0.2) K/uL Immature Gran # (Auto) 0.04 H (0.00-0.02) K/uL PT 10.3 (9.0-12.0) Seconds INR 1.0 (0.9-1.1) APTT 21.9 (21.0-31.0) Seconds PTT Ratio 0.8 Activ Coag Time Kaolin (94-140) SECONDS Sodium (136-145) mmol/L Potassium (3.5-5.1) mmol/L Chloride (98-107) mmol/L Carbon Dioxide (21-32) mmol/L Anion Gap (3-11) BUN (7-18) mg/dl Creatinine (0.6-1.4) mg/dl Est Cr Clr Drug Dosing ml/min Est GFR ( Amer) Est GFR (Non-Af Amer) BUN/Creatinine Ratio (10-20) Glucose (70-99) mg/dl POC Glucose (70-99) mg/dl Estimat Average Glucose mg/dl Hemoglobin A1c (4.5-5.6) % Calcium (8.5-10.1) mg/dl Phosphorus (2.5-4.9) mg/dl Magnesium (1.8-2.4) mg/dl Total Bilirubin (0.2-1) mg/dl AST (15-37) U/L ALT (12-78) U/L Alkaline Phosphatase (45-117) U/L Total Creatine Kinase (39-308) U/L CK-MB (CK-2) (0.5-3.6) ng/ml CK/CKMB % Calc (0-3.0) Troponin I (0-0.045) ng/ml Total Protein (6.4-8.2) gm/dl Albumin (3.4-5.0) gm/dl Globulin (2.5-4.0) gm/dl Albumin/Globulin Ratio (0.9-2) Triglycerides (0-150) mg/dl Cholesterol (0-200) mg/dl LDL Cholesterol Direct mg/dl LDL Cholesterol, Calc VLDL Cholesterol, Calc mg/dl HDL Cholesterol mg/dl Cholesterol/HDL Ratio Lipase (73-393) U/L TSH (0.300-4.500) uIu/ml Nasal Screen MRSA (PCR) (Negative) Medications Administered Current Inpatient Medications Acetaminophen (Acetaminophen 325 Mg Tab) 650 mg PO Q4H PRN PRN Reason: MILD Pain (Scale 1,2,3) Stop: 09/05/20 14:14 Aspirin (Aspirin 81 Mg Ectab) 81 mg PO [facility] Stop: 09/06/20 08:59 Dextrose (Dextrose 50% 50 Ml Syringe) 25 - 50 ml IV UD PRN; Protocol PRN Reason: Hypoglycemia Protocol Stop: 09/05/20 14:42 Glucagon (Glucagon For Inj 1 Mg Vial) 1 mg SQ UD PRN; Protocol PRN Reason: Hypoglycemia Protocol Stop: 09/05/20 14:42 Glucose (Glucose 10 Tabs/Tube) 4 - 8 tabs PO UD PRN; Protocol PRN Reason: Hypoglycemia Protocol Stop: 09/05/20 14:42 Glucose (Glucose 40% Gel 15 Gm Tube) 15 - 30 gm PO UD PRN; Protocol PRN Reason: Hypoglycemia Protocol Stop: 09/05/20 14:42 Eptifibatide (Integrilin) 75 mg in 100 mls @ 18.992 mls/hr IV .Q5H16M [facility]; Protocol Stop: 08/07/20 07:00 Last Infusion: 08/07/20 06:20 Dose: Infused Documented by: Insulin Aspart (Insulin Aspart 100 Units/Ml 3 Ml Pen) 0 units SC [facility] Stop: 09/05/20 16:29 Last Admin: 08/06/20 21:21 Dose: Not Given Documented by: Lisinopril (Lisinopril 2.5 Mg Tab) 2.5 mg PO [facility] Stop: 09/06/20 08:59 Metoprolol Tartrate (Metoprolol Tartrate 25 Mg Tab) 12.5 mg PO BID [facility] Stop: 09/05/20 20:59 Last Admin: 08/06/20 21:20 Dose: 12.5 mg Documented by: Miscellaneous (Icu Protocol For Hyperglycemia) 1 ea N/A PRN PRN; Protocol PRN Reason: Hyperglycemia Protocol Stop: 08/08/20 14:21 Miscellaneous (Carbohydrates For Hypoglycemia ) 15 - 30 gm PO UD PRN PRN Reason: Hypoglycemia Protocol Stop: 09/05/20 14:42 Miscellaneous (Eptifibatide ~Stop Order) 1 ea N/A Tu@0700 ONE Stop: 08/07/20 07:01 Miscellaneous Information (Pharmacy Glycemic Mgmt Consult) 1 ea N/A UD PRN PRN Reason: Consult Stop: 09/05/20 15:00 Nitroglycerin (Nitroglycerin Sl 0.4 Mg/Tab Tab) 0.4 mg SL PRN PRN PRN Reason: Chest Pain Stop: 09/05/20 14:14 Ondansetron HCl (Ondansetron Inj 2 Mg/Ml 2 Ml Vial) 4 mg IV Q6H PRN PRN Reason: Nausea And Vomiting Stop: 09/05/20 14:14 Rosuvastatin Calcium (Rosuvastatin Calcium 20 Mg Tab) 20 mg PO QAM [facility] Stop: 09/06/20 08:59 Ticagrelor (Ticagrelor 90 Mg Tab) 90 mg PO BID [facility] Stop: 09/06/20 00:17 Last Admin: 08/06/20 23:57 Dose: 90 mg Documented by:
[2020-08-07] MEDS: EPTIFIBATIDE 75 MG/100 ML VIAL IV SCH (07:16)
[2020-08-07] MEDS ORDERED: MIDAZOLAM HCL 5 MG/ML VIAL IV ONE (07:21)
[2020-08-07] MEDS: INSULIN GLARGINE SOLOSTAR 100 UNITS/ML 3 ML PEN SC SCH ×2 (07:54→20:47)
[2020-08-07] MEDS: TICAGRELOR 90 MG TAB PO SCH ×2 (08:00→20:46)
[2020-08-07] MEDS: METOPROLOL TARTRATE 25 MG TAB PO SCH (08:00)
[2020-08-07] MEDS: ROSUVASTATIN CALCIUM 20 MG TAB PO SCH (08:00)
[2020-08-07] MEDS: lisinopril 2.5 MG TAB PO SCH (08:00)
[2020-08-07] MEDS: ASPIRIN 81 MG ECTAB PO SCH (08:00)
--- NOTE | 2020-08-07 08:01 | Critical Care Progress Note ---
Date of Service August 07, 2020 Assessment & Plan (1) Acute CT: Reason Critically Ill: 70-year-old male with past medical history of type 2 diabetes, hypertension, dyslipidemia who was admitted due to STEMI, now status post cardiac catheterization with PCI of the LAD & circumflex. Neuro - CAM ICU: NEGATIVE Sedation: None Analgesia: APAP - No current neurological concerns. Cardiac - STEMI - Continue dual antiplatelet therapy with aspirin and Brilinta daily - Continue Crestor 20mg p.o. daily - Continue metoprolol tartrate 12.5 mg p.o. twice daily - Continue Lisinopril 2.5 mg p.o. daily (home dose is 10mg daily--increase as BP allows) - Echo will be done today Hypertension - Lisinopril and metoprolol as above Dyslipidemia - Continue rosuvastatin 20 mg p.o. daily Respiratory - - No current respiratory concerns GI - - Carb consistent diet RENAL/LYTES - - No significant electrolyte derangement. - Replace lytes as needed. - - No concerns at this time. ENDO - - DMII - BSG monitoring and management per unit protocol. SSI --> insulin gtt per unit protocol. HEME - - Stable H&H. ID - - No concerns for infection at this point. Dispo: Downgrade to telemetry Thank you for allowing us to be part of this patient's care. Please refer to Dr. Angeles's documentation for any further recommendations. (2) T2DM (type 2 diabetes mellitus): (3) Hypercholesterolemia: (4) Hypertension: Admission and Anticipated Discharge Date Admission Date: August 06, 2020 Supervising Physician Co-Signing Physician Notes Dr. Weston was resident physician during care of patient. I separately evaluated patient for potts portions of the history and the exam. I was present during the critical portion of medical decision making, and I discussed the case with the resident. I generally agree with the findings and plan. No overnight events, feels improved stable for downgrade out of ICU Subjective Patient doing well this morning. Denies chest pain, palpitations, SOB, or any other symptoms. Has tolerated meals well, has adequate UOP. Review of Systems Review of Systems: All systems reviewed & are unremarkable except as noted in Subjective Physical Exam Constitutional: WD/WN, vitals as above + obese; no acute distress Eyes: PERRL, conjunctivae normal, anicteric sclerae ENMT: external ear and nose normal, oropharynx normal Neck: normal visual inspection; no tracheal deviation Respiratory: normal respiratory effort, lungs clear to auscultation Auscultation: no crackles, no rhonchi and no wheezes Cardiovascular: RRR, no murmur, no edema Heart Sounds: normal S1 and normal S2; no gallop, no murmur and no cardiac rub Gastrointestinal (Abdomen): normal bowel sounds, soft, nontender, no hepatosplenomegaly Musculoskeletal: no cyanosis or clubbing, extremities motor strength 5/5 Skin: no rashes, warm and dry Neurologic: CN's II-XI intact bilaterally and moves all extremities; no focal motor deficits Psychiatric: A+Ox3, euthymic affect Results & Data Results & Data ([facility]) Vital Signs (Past 12 Hours) Vital Signs Pulse Resp BP Pulse Ox 08/07/20 07:07 78 21 125/78 92 08/07/20 06:45 16 92 08/07/20 04:00 75 31 H 89 L 08/07/20 03:07 81 15 118/79 91 08/07/20 03:00 76 15 90 08/07/20 02:07 78 17 114/73 92 08/07/20 02:00 77 16 93 08/07/20 01:08 71 85/61 L 92 08/07/20 01:00 77 23 94 08/07/20 00:08 78 15 125/77 92 08/07/20 00:00 82 24 91 08/06/20 23:32 79 25 H 137/87 90 08/06/20 23:02 83 20 117/70 92 08/06/20 23:00 84 19 91 08/06/20 22:32 87 21 140/89 94 08/06/20 22:02 89 14 121/75 92 08/06/20 22:00 91 H 17 94 08/06/20 21:33 93 H 19 147/97 H 93 08/06/20 21:00 81 18 92 Resident Activity Tracking Resident Involvement: Resident Care Provided Care Provided: Adult Hospital Medicine
--- NOTE | 2020-08-07 09:23 | Billing Data ---
Date of Service August 07, 2020 Coding Level of Care Code 93794 Inpt Consult Level 4
--- NOTE | 2020-08-07 09:23 | Billing Data ---
Date of Service August 07, 2020 Coding Level of Care Code 55586 Subseq Obs Care Lvl 1
--- NOTE | 2020-08-07 12:36 | Pharmacy Report ---
Pharmacy Glycemic Short Note 2 - Date of Service August 07, 2020 - Glycemic Short BSG Results (Last 24 hours): 08/06/20 08/06/20 08/06/20 12:19 14:20 21:18 Glucose 234 H POC Glucose 159 H 137 H 08/06/20 08/07/20 08/07/20 23:59 04:41 07:36 Glucose 134 H POC Glucose 144 H 126 H 08/07/20 11:02 Glucose POC Glucose 130 H OUTPATIENT ANTIDIABETIC REGIMEN: * Metformin 1000 mg BID * A1c Pending; per physician note 6.3% in June 2020 ASSESSMENT: 08/07 * BSGs well controlled over last 24 hrs * Fasting BSG 126 today with 10 units Lantus on board - will continue "low" dose, weight based Lantus * Post-prandial BSGs have been well controlled with current Novolog CF and CR - will continue the same and monitor post-prandial pattern 08/06 * CHARLETTE is admitted ICU post PCI for STEMI. He does have a history of type II diabetes. Would like tight glycemic control in STEMI setting. * Will begin Novolog weight based stress of 2 parameters and lantus scale for dinner. Overnight checks. * Will dose lantus with scale initially with dinner, additional may be ordered HS if BSGs elevated PLAN FOR INPATIENT GLYCEMIC CONTROL: * Hold outpatient oral diabetes medications (metformin) * Basal insulin * Lantus 10 units BID - hold if BSG less than 120 * Bolus insulin * NovoLog per scale ACHS or Q6hrs while NPO * Goal Range: Low 110 mg/dL - High 140 mg/dL * Correction Factor: 20 mg/dL/unit * Nutritional / Prandial insulin per carb ratio of 1 unit per 7 grams CHO consumed PLAN FOR DISCHARGE: * given patient's A1c of 6.7%, he may resume metformin monotherapy on discharge if no contraindications to use are present
--- NOTE | 2020-08-07 12:58 | Cardiology Progress Note ---
Date of Service August 07, 2020 Assessment & Plan (1) ST elevation myocardial infarction (STEMI) of anterior wall: Status post complex PCI of the LAD and circumflex coronary arteries. Completed course of IV Integrilin at 7 AM 08/07/2020. EKG this morning reveals sinus rhythm with resolution of the previously noted ST segment elevation, changes of old anterior, anterolateral VT noted wave inversions in the precordial leads. Echocardiogram with large sized anteroseptal, anterior, anterolateral, apical wall motion abnormality, with moderately reduced LVEF in the range of 35 to 40%. Patient feeling well. No arrhythmia. Continue dual antiplatelet therapy with aspirin and Brilinta. Brilinta recommended for 1 year without interruption. Transition to metoprolol succinate 25 mg p.o. daily. Continue lisinopril 2.5 mg daily. Continue rosuvastatin 20 mg by mouth daily, dose increased compared to outpatient treatment of 5 mg daily. Recommend avoiding oral nonsteroidal anti-inflammatory medications for treatment of osteoarthritis, Voltaren topical therefore started. (2) Hypertension: Metoprolol and lisinopril as noted above. (3) Hypercholesterolemia: Continue rosuvastatin 20 mg daily. History of 3 cm AAA, noted on ultrasound a year ago June,, repeat duplex as outpatient. -Patient stable for PCU status. Remain in hospital. Admission and Anticipated Discharge Date Admission Date: August 06, 2020 Subjective Patient seen in follow-up of chief complaint of chest discomfort. He continues to feel well. Telemetry reveals sinus rhythm in the range of 68 bpm, without arrhythmia. Review of Systems Review of Systems: All systems reviewed & are unremarkable except as noted in HPI & below Physical Exam Physical Exam: Temp Pulse Resp BP Pulse Ox 37.0 C 83 18 116/77 91 08/07/20 10:41 08/07/20 12:00 08/07/20 12:00 08/07/20 10:07 08/07/20 10:07 Constitutional: WD/WN, vitals as above Respiratory: normal respiratory effort, lungs clear to auscultation Cardiovascular: RRR, no murmur, no edema Right radial access site clean dry and intact Gastrointestinal (Abdomen): normal bowel sounds, soft, nontender, no hepatosplenomegaly Neurologic: PERRL, EOMI, accommodation nl, no face palsy, no dysarthria Results & Data ([facility]) Vital Signs (Past 12 Hours) Vital Signs Temp Pulse Resp BP Pulse Ox 08/07/20 12:00 83 18 08/07/20 10:41 37.0 C 08/07/20 10:07 80 21 116/77 91 08/07/20 09:07 79 24 109/63 91 08/07/20 07:51 37.0 C 83 22 134/84 91 08/07/20 07:07 78 21 125/78 92 08/07/20 06:45 16 92 08/07/20 04:00 75 31 H 89 L 08/07/20 03:07 81 15 118/79 91 08/07/20 03:00 76 15 90 08/07/20 02:07 78 17 114/73 92 08/07/20 02:00 77 16 93 08/07/20 01:08 71 85/61 L 92 08/07/20 01:00 77 23 94 Laboratory Results Cardiac Enzymes 08/06/20 08/06/20 08/07/20 Range/Units 12:19 20:05 02:07 CK-MB (CK-2) 3.0 (0.5-3.6) ng/ml Troponin I 0.055 H* 50.600 H* 57.200 H* (0-0.045) ng/ml Coagulation 08/06/20 Range/Units 12:19 PT 10.3 (9.0-12.0) Seconds APTT 21.9 (21.0-31.0) Seconds Lipids 08/07/20 Range/Units 04:41 Triglycerides 82 (0-150) mg/dl Cholesterol 108 (0-200) mg/dl HDL Cholesterol 45 mg/dl Cholesterol/HDL Ratio 2 CBC 08/07/20 Range/Units 04:41 WBC 13.20 H (4.8-10.8) K/uL RBC 4.13 L (4.7-6.1) M/uL Hgb 14.0 (14.0-18.0) g/dL Hct 40.9 L (42-52) % Plt Count 196 (130-400) K/uL Neut # (Auto) 10.93 H (1.4-6.5) K/uL Lymph # (Auto) 1.43 (1.2-3.4) K/uL [place] # (Auto) 0.78 H (0.11-0.59) K/uL Eos # (Auto) 0.01 (0-0.5) K/uL Baso # (Auto) 0.01 (0-0.2) K/uL Comprehensive Metabolic Panel 08/06/20 08/07/20 Range/Units 12:19 04:41 Sodium 139 (136-145) mmol/L Potassium 4.3 (3.5-5.1) mmol/L Chloride 111 H (98-107) mmol/L Carbon Dioxide 22 (21-32) mmol/L BUN 20 H (7-18) mg/dl Creatinine 0.96 D (0.6-1.4) mg/dl Glucose 134 H (70-99) mg/dl Calcium 8.6 (8.5-10.1) mg/dl Alkaline Phosphatase 51 (45-117) U/L Total Protein 7.0 (6.4-8.2) gm/dl Intake and Output 08/06/20 08/07/20 08/07/20 22:59 06:59 14:59 Intake Total 893.200 / 2384.333 1491.133 / 2384.333 360 / 360 Output Total 1000 / 1900 900 / 1900 301 / 301 Balance -106.800 / 484.333 591.133 / 484.333 59 / 59 Intake: IV 53.200 / 8819.342 1426.133 / 1244.333 INTEGRILIN 75 mg In 100 ml @ 2 53.200 / 244.333 191.133 / 244.333 MCG/KG/MIN 18.992 mls/hr IV . Q5H16M SENAIT Rx#:[id number] Nss 1000ML 1,000 ml @ 100 mls/ 1000 / 1000 hr IV .Q10H SENAIT Rx#:[id number] Oral 840 / 1140 300 / 1140 360 / 360 Output: Urine 1000 / 1900 900 / 1900 300 / 300 # Bowel Movements Other: # Unmeasured Voids 1 Weight 119.1 kg Weight Measurement Method Built in [facility]
[2020-08-07] MEDS ORDERED: MAGNESIUM OXIDE 400 MG TAB PO ONE (13:56)
--- NOTE | 2020-08-07 14:42 | Electrocardiogram Report ---
Test Reason : Blood Pressure : / mmHG Vent. Rate : 077 BPM Atrial Rate : 077 BPM P-R Int : 164 ms QRS Dur : 098 ms QT Int : 450 ms P-R-T Axes : 020 -09 109 degrees QTc Int : 509 ms Normal sinus rhythm Inferior infarct (cited on or before 08-JUN-2009) Prolonged QT Abnormal ECG When compared with ECG of 06-AUG-2020 14:26, Right bundle branch block is no longer Present Continued evololution of anterior [place] Confirmed by Nils Ovalle ([id number]) on 08/07/2020 2:42:31 PM Referred By: REFERRED SELF Confirmed By:Nils Ovalle
[2020-08-07] MEDS: METOPROLOL SUCC 25MG EXT REL TAB PO SCH (14:43)
[2020-08-07] MEDS: DICLOFENAC SOD 1% GEL 100 GM TUBE EXT SCH ×2 (14:44→19:49)
[2020-08-07] MEDS: ENOXAPARIN INJ 40 MG/0.4 ML SYR SQ SCH (20:46)
[2020-08-08 05:40] LABS: Basophils # (auto) 0.02 K/uL (0-0.2); Basophils % (auto) 0.2 %; Eosinophils # (auto) 0.03 K/uL (0-0.5); Eosinophils % (auto) 0.4 %; Hematocrit (blood only) 36.9 % (42-52); Hemoglobin 12.5 g/dL (14.0-18.0); Immature Granulocytes # (auto) 0.02 K/uL (0.00-0.02); Immature Granulocytes % (auto) 0.2 %; Lymphocytes # (auto) 2.64 K/uL (1.2-3.4); Lymphocytes % (auto) 30.8 %; Mean Corpuscular Hemoglobin 33.3 pg (25-34); Mean Corpuscular Hgb Conc 33.9 g/dL (32-36); Mean Corpuscular Volume 98.4 fL (80-100); Mean Platelet Volume 9.5 fL (7.4-10.4); Monocytes # (auto) 1.19 K/uL (0.11-0.59); Monocytes % (auto) 13.9 %; Neutrophils # (auto) 4.66 K/uL (1.4-6.5); Neutrophils % (auto) 54.5 %; Platelet Count 156 K/uL (130-400); RDW Coefficient of Variation 14.2 % (11.5-14.5); Red Blood Count 3.75 M/uL (4.7-6.1); White Blood Count 8.56 K/uL (4.8-10.8)
[2020-08-08 06:11] LABS: BUN Creatinine Ratio 17.9 (10-20); Calcium 8.5 mg/dl (8.5-10.1); Est GFR (African American) 97.9; Est GFR (Non-African American) 84.5; Magnesium 2.2 mg/dl (1.8-2.4)
[2020-08-08 06:17] LABS: Troponin I 29.3 ng/ml (0-0.045)
[2020-08-08] MEDS ORDERED: fentaNYL citrate 100 MCG/2 ML VIAL ONE ×2 (06:57→07:25)
[2020-08-08] MEDS ORDERED: RAPID SEQUENCE INDUCTION BAG ONE (06:57)
[2020-08-08] MEDS ORDERED: MIDAZOLAM HCL 1 MG/ML 2ML VIAL ONE ×2 (07:04→07:53)
--- NOTE | 2020-08-08 07:16 | Procedure Note ---
Procedure Note Date of Service August 08, 2020 APC: Kamran Méndez PA-C. Attending: Dr. Angeles A time-out was completed verifying correct patient, procedure, site, positioning. Patient was evaluated and required intubation for respiratory failure in the setting of cardiac arrest. Sedative agent used: None Paralysis agent used: None Emergent consent was implied given patients rapidly declining clinical status and need for airway protection. The patient was prepared in the appropriate fashion. Sedation was not necessary as the patient was in active cardiac arrest. The patient was easily ventilated using [id number] prior to intubation. A 7.5 Gambian endotracheal tube was placed using portable video laryngoscope to 24 cm at the lip. The stylette was removed and balloon was inflated with 10mL of air. Appropriate Colorimetric change was appreciated. Bilateral breath sounds were heard without air sounds in the abdomen. Post Intubation Chest X-ray confirms placement without pneumothorax. Patient tolerated the procedure well and there were no immediate complications. Coding CPT Codes Resuscitation - Resuscitation: 96344 Endotracheal Intubation, emergency ([id number]) [facility] Procedure Codes (Charges) Resuscitation Resuscitation: 17986 Endotracheal Intubation, emergency
[2020-08-08] MEDS ORDERED: SODIUM CHLORIDE 0.9% 10ML FLUSH IV ONE (07:20)
[2020-08-08] MEDS ORDERED: SODIUM CHLORIDE 0.9% 2.5 ML FLUSH IV ONE (07:20)
[2020-08-08] MEDS ORDERED: MIDAZOLAM HCL 5 MG/ML VIAL IV ONE (07:20)
[2020-08-08] MEDS ORDERED: fentaNYL citrate 100 MCG/2 ML VIAL IV ONE (07:20)
[2020-08-08] MEDS ORDERED: STAT IV Infusion **Titration per Protocol STA ×3 (07:21→10:38)
[2020-08-08] MEDS ORDERED: MIDAZOLAM BOLUS FROM BAG IV PRN (07:21)
[2020-08-08] MEDS ORDERED: MIDAZOLAM HCL 125 MG/250 ML BAG IV PRN (07:21)
[2020-08-08] MEDS ORDERED: AMIODARONE / D5W 360 MG/200 ML BAG IV ONE (07:24)
[2020-08-08] MEDS ORDERED: 0.2 MICRON FILTER SET 1 EA IV ONE ×2 (07:24→07:45)
--- NOTE | 2020-08-08 07:34 | XRay Report ---
XR chest 1V portable CLINICAL HISTORY: Respiratory failure COMPARISON STUDY: April 2012 FINDINGS: r there is an endotracheal tube 4 cm above the masoud. The heart is borderline enlarged. Th ere is mediastinal widening.[Gas projected over the right heart border, likely represents visualizati on of lung through the heart border or summation with bowel. This finding was reviewed with a fellow radiologist. It was decided that intracardiac gas is unlikely. There are increased interstitial yue ngs in the left perihilar region, likely representing mild edema although an infectious/inflammatory process could appear similar. IMPRESSION: 1. Endotracheal tube 4 cm above the masoud 2. Left perihilar opacities, likely representing focal edema although an infectious/inflammatory proc esses could appear similar 3. Somewhat unusual appearance of the lower right heart border, likely secondary to visualization of the lung and/or bowel gas through the heart border. ACT 112: Negative or not required by law. Electronically signed by: Maurice Brown M.D. 08/08/2020 7:33 AM
[2020-08-08 07:35] LABS: iSTAT Arterial Blood Gas HCO3 10 meg/L (19-24); iSTAT Arterial Blood Gas pCO2 39 mmHg (35-46); iSTAT Arterial Blood Gas pH 7.01 (7.35-7.45); iSTAT Arterial Blood Gas pO2 83 mmHg (80-95); iSTAT Carbon Dioxide 11 mmol/L (24-31); iSTAT Hematocrit 39 % (42-52); iSTAT Hemoglobin 13.3 g/dl (14.0-18.0); iSTAT Sodium 138 mmol/L (135-144)
[2020-08-08] MEDS ORDERED: NITROGLYCERIN/D5W 100MCG/ML 20ML SYR ONE (07:35)
[2020-08-08 07:36] LABS: Albumin Level 3.2 gm/dl (3.4-5.0); BUN Creatinine Ratio 13.2 (10-20); Calcium 8.6 mg/dl (8.5-10.1); Creatinine Clr Calc Pharmacy 67.7 ml/min; Est GFR (African American) 64.2; Est GFR (Non-African American) 55.4; Magnesium 2.6 mg/dl (1.8-2.4); Potassium 3.8 mmol/L (3.5-5.1)
[2020-08-08] MEDS ORDERED: niCARdipine HCL INJ 2.5 MG/ML 10 ML AMP ONE (07:36)
[2020-08-08] MEDS: fentaNYL citrate 100 MCG/2 ML VIAL IV PRN ×4 (07:39→21:32)
[2020-08-08 07:40] LABS: Hematocrit (blood only) 43.5 % (42-52); Hemoglobin 14.3 g/dL (14.0-18.0); Mean Corpuscular Hemoglobin 34.1 pg (25-34); Mean Corpuscular Hgb Conc 32.9 g/dL (32-36); Mean Corpuscular Volume 103.8 fL (80-100); Mean Platelet Volume 9.7 fL (7.4-10.4); Platelet Count 156 K/uL (130-400); RDW Coefficient of Variation 14.5 % (11.5-14.5); RDW Standard Deviation 54.8 fL (36.4-46.3); Red Blood Count 4.19 M/uL (4.7-6.1); White Blood Count 4.97 K/uL (4.8-10.8)
[2020-08-08] MEDS: INSULIN ASPART 100 UNITS/ML 3 ML PEN SC SCH ×4 (07:42→20:18)
[2020-08-08 07:43] LABS: Albumin Globulin Ratio 0.8 (0.9-2); Bilirubin,Total 1.1 mg/dl (0.2-1); Globulin 3.8 gm/dl (2.5-4.0); Phosphorus 3.5 mg/dl (2.5-4.9); Troponin I 32.5 ng/ml (0-0.045)
--- NOTE | 2020-08-08 07:47 | Cardiology Progress Note ---
Date of Service August 08, 2020 Assessment & Plan (1) Cardiac arrest: VF cardiac arrest in the setting of recent large anterolateral myocardial infarction. Electrolytes stable. Creatinine has trended up, but is acceptable. Patient assessed personally in ICU by the undersigned from 7 AM to 730, case discussed with Mr Méndez of critical care, Dr Dietz,and Dr Reed of interventional cardiology at bedside. We will proceed with repeat emergent cardiac catheterization to exclude coronary reocclusion. Continue airway support with mechanical ventilation. Continue amiodarone infusion. Dr Dietz updated Mrs Mckeon by phone and Dr Reed plans to call her with regards to updates. Admission and Anticipated Discharge Date Admission Date: August 06, 2020 Subjective CODE BLUE occurred at approximately 630 this morning with episodes of nonsustained VT ultimately progressing to ventricular fibrillation. Per my discussion with Mr Méndez of critical care and Dr Dietz patient received defibrillation x1, IV epinephrine, IV amiodarone And underwent endotracheal intubation. Spontaneous return of circulation occurred, with resuscitation efforts lasting 10 to 15 minutes. Upon my arrival, patient had already been transferred to ICU room 102. Repeat EKG revealed sinus tachycardia 102 bpm with marked anterolateral ST segment depression consistent with ischemia. Patient required sedation, to allow mechanical ventilation, with spontaneous muscle movements. Systolic blood pressure stable in the 90s, on amiodarone infusion. Review of Systems Review of Systems: Unobtainable due to reduced consciousness Physical Exam Physical Exam: Temp Pulse Resp BP Pulse Ox 36.8 C 70 17 96/59 L 91 08/08/20 03:24 08/08/20 03:24 08/08/20 03:24 08/08/20 03:24 08/08/20 03:24 Constitutional: Critically ill. Respiratory: normal respiratory effort, lungs clear to auscultation Cardiovascular: RRR, no murmur, no edema Neurologic: Spontaneous muscle movements. Results & Data ([facility]) Vital Signs (Past 12 Hours) Vital Signs Temp Pulse Pulse Resp BP Pulse Ox 08/08/20 03:24 36.8 C 70 17 96/59 L 91 08/08/20 00:00 78 08/07/20 22:59 37 C 85 18 139/79 92 Laboratory Results Cardiac Enzymes 08/08/20 08/08/20 Range/Units 05:29 06:58 AST 272 H (15-37) U/L Troponin I 29.300 H* (0-0.045) ng/ml CBC 08/08/20 08/08/20 Range/Units 05:29 06:58 WBC 8.56 4.97 (4.8-10.8) K/uL RBC 3.75 L 4.19 L (4.7-6.1) M/uL Hgb 12.5 L 14.3 (14.0-18.0) g/dL Hct 36.9 L 43.5 (42-52) % Plt Count 156 156 (130-400) K/uL Neut # (Auto) 4.66 (1.4-6.5) K/uL Lymph # (Auto) 2.64 (1.2-3.4) K/uL [place] # (Auto) 1.19 H (0.11-0.59) K/uL Eos # (Auto) 0.03 (0-0.5) K/uL Baso # (Auto) 0.02 (0-0.2) K/uL Comprehensive Metabolic Panel Magnesium level, 2.6 at 658 this morning 08/08/20 08/08/20 Range/Units 05:29 06:58 Sodium 140 142 (136-145) mmol/L Potassium 4.0 3.8 (3.5-5.1) mmol/L Chloride 111 H 111 H (98-107) mmol/L Carbon Dioxide 26 18 L (21-32) mmol/L BUN 16 17 (7-18) mg/dl Creatinine 0.91 1.29 D (0.6-1.4) mg/dl Glucose 118 H 206 H (70-99) mg/dl Calcium 8.5 8.6 (8.5-10.1) mg/dl AST 272 H (15-37) U/L ALT 248 H (12-78) U/L Albumin 3.2 L (3.4-5.0) gm/dl Intake and Output 08/07/20 08/08/20 08/08/20 22:59 06:59 14:59 Intake Total 440 / 1020 100 / 1020 Balance 440 / 469 100 / 469 Intake: Oral 440 / 1020 100 / 1020 Other: Weight 118.4 kg
--- NOTE | 2020-08-08 07:54 | Communication Note ---
Date of Service: August 08, 2020 0645: PREMA FRANCISCO was called overhead. Upon my arrival, high-quality CPR was being performed by nursing staff. Patient was being ventilated by bag valve mas k. Patient had just received initial dose of IV epinephrine. No pulses were present. Patient without discernible rhythm initially. Through pulse checks, none were present. Patient was apparently noted to go into V. fib on monitor prior to arresting. Patient was intubated utilizing portable video laryngoscope. Please see separate note. During pulse check, patient was noted to be in v. fib. Patient was defibrillated and compressions were continued. Patient received IV amiodarone bolus. During subsequent pulse check, patient was noted to have a pulse. Patient is breathing spontaneously. Patient did open his eyes and did fight with staff. Patient received sedation in the form of fentanyl and Versed. Patient received a total of 3 rounds of epinephrine, 1 bolus of amiodarone, 1 shock, fentanyl, and Versed. Successful ROSC achieved. Estimated down time ~9 minutes. Patient transported to the ICU on portable ventilator. Post CXR demonstrates appropriate tube placement. ABG shows respiratory acidosis w/ a pH of 7.01. Dr. John presented to bedside in ICU. Repeat EKG evaluated by himself. He did reach out to Dr. Reed who also presented to bedside. 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 Patient sedated on Versed gtt w/ PRN Fentanyl boluses. I have personally spent 35 minutes of critical care time in the direct management of this patient. This is a life/limb threatening event. This includes time spent evaluating patient, direct bedside care, chart review, placing orders, interpretation of diagnostic studies, discussion with consultants, patient, and family members, as well as other required patient management activities. This time is exclusive of all separately billable procedures, and teaching time and separate from and in addition to any other critical care service time. Coding Level of Care Code Critical Care 1st 30-74 mins Time Spent (min) 35
[2020-08-08] MEDS ORDERED: PROPOFOL IV EMULSION 10 MG/ML 100 ML VIAL (CATH LAB USE ONLY) ONE (07:59)
[2020-08-08] MEDS ORDERED: NOREPINEPHRINE BITARTRATE 1 MG/ML 4 ML VIAL (CATH LAB USE ONLY) ONE (08:03)
[2020-08-08] MEDS ORDERED: AMIODARONE 360MG / 200ML D5W (CATH LAB USE ONLY) ONE (08:10)
[2020-08-08] MEDS ORDERED: AMIODARONE 150MG / 100ML D5W (CATH LAB USE ONLY) ONE (08:10)
[2020-08-08 08:27] LABS: Basophils # (auto) 0.02 K/uL (0-0.2); Basophils % (auto) 0.4 %; Eosinophils # (auto) 0.01 K/uL (0-0.5); Eosinophils % (auto) 0.2 %; Immature Granulocytes # (auto) 0.07 K/uL (0.00-0.02); Immature Granulocytes % (auto) 1.4 %; Lymphocytes # (auto) 4.33 K/uL (1.2-3.4); Lymphocytes % (auto) 87.1 %; Monocytes # (auto) 0.33 K/uL (0.11-0.59); Monocytes % (auto) 6.6 %; Neutrophils # (auto) 0.21 K/uL (1.4-6.5); Neutrophils % (auto) 4.3 %
[2020-08-08] MEDS ORDERED: HEPARIN (PORCINE) 1000 UNIT/ML 10 ML (CATH LAB USE ONLY) ONE (08:35)
[2020-08-08] MEDS ORDERED: SODIUM BICARB 8.4% INJ 50 MEQ/50 ML SYR IV ONE (08:39)
[2020-08-08 08:51] LABS: iSTAT Arterial Blood Gas HCO3 18 meg/L (19-24); iSTAT Arterial Blood Gas pCO2 35 mmHg (35-46); iSTAT Arterial Blood Gas pH 7.33 (7.35-7.45); iSTAT Arterial Blood Gas pO2 70 mmHg (80-95); iSTAT Carbon Dioxide 19 mmol/L (24-31)
[2020-08-08 08:53] LABS: iSTAT Arterial Blood Gas HCO3 22 meg/L (19-24); iSTAT Arterial Blood Gas pCO2 42 mmHg (35-46); iSTAT Arterial Blood Gas pH 7.32 (7.35-7.45); iSTAT Arterial Blood Gas pO2 39 mmHg (80-95); iSTAT Carbon Dioxide 23 mmol/L (24-31); iSTAT Hematocrit 38 % (42-52); iSTAT Hemoglobin 12.9 g/dl (14.0-18.0); iSTAT Potassium 4.1 mmol/L (3.3-5.0); iSTAT Sodium 136 mmol/L (135-144)
[2020-08-08 08:54] LABS: INR 1.1 (0.9-1.1); Prothrombin Time 11.1 Seconds (9.0-12.0)
--- NOTE | 2020-08-08 09:01 | Critical Care Progress Note ---
Date of Service August 08, 2020 Assessment & Plan (1) Cardiac arrest: 70-year-old male with past medical history of type 2 diabetes, hypertension, dyslipidemia who was admitted due to STEMI, status post cardiac catheterization with PCI of the LAD & circumflex. Had been downgraded from ICU level of care to telemetry. Had cardiac arrest with code blue called and eventual achievement of ROSC. He was taken emergently for cath and now s/p a third stent placement in LAD. Neuro - CAM ICU: NEGATIVE - Sedation discontinued after extubation this AM at 9:30. Following commands minimally. on BiPAP. - Fentanyl prn for analgesia Cardiac - Cardiac arrest - Continue amiodarone gtt - Continue Levophed - Continue meds as below - Cardio following STEMI - Continue dual antiplatelet therapy with aspirin and Brilinta daily - Hold Crestor 20mg p.o. daily due to bumped LFTs--continue once transaminitis resolved - Metoprolol succinate 25 mg PO daily - Continue Lisinopril 2.5 mg p.o. daily (home dose is 10mg daily--increase as BP allows) Hypertension - Lisinopril and metoprolol as above Dyslipidemia - Continue rosuvastatin 20 mg p.o. daily Respiratory - - No current respiratory concerns GI - - Carb consistent diet RENAL/LYTES - - Check BMP at 1500 - Replace lytes as needed. - - No concerns at this time. ENDO - - DMII - BSG monitoring and management per unit protocol. SSI --> insulin gtt per unit protocol. HEME - - Stable H&H. ID - - No concerns for infection at this point. Dispo: Remain ICU due to cardiac ischemia Thank you for allowing us to be part of this patient's care. Please refer to Dr. Angeles's documentation for any further recommendations. (2) ST elevation myocardial infarction (STEMI) of anterior wall: (3) JEMMA (acute kidney injury): (4) DVT prophylaxis: (5) T2DM (type 2 diabetes mellitus): (6) Hypertension: (7) Hypercholesterolemia: Admission and Anticipated Discharge Date Admission Date: August 06, 2020 Supervising Physician Co-Signing Physician Notes Dr. Weston was resident physician during care of patient. I separately evaluated patient for potts portions of the history and the exam. I was present during the critical portion of medical decision making, and I discussed the case with the resident. I generally agree with the findings and plan. Extubated this morning at approximately 930 still has sheath in groin on BiPAP following commands minimally, discussed with cardiology no role for therapeutic hypothermia at this point will monitor for fever. Low-dose vasoactive medication. Continue amiodarone infusion at this time. Patient was discussed on multidisciplinary rounds still requiring low-dose vasoactive's remains critically ill due to cardiac ischemia and subsequent sequelae. Subjective Patient seen after emergent cath. Minimally following commands. Not communicative. Review of Systems Review of Systems: Unobtainable due to reduced consciousness Physical Exam Constitutional: + obese and + lethargic Eyes: PERRL, conjunctivae normal, anicteric sclerae ENMT: external ear and nose normal, oropharynx normal Neck: normal visual inspection Respiratory: normal respiratory effort, lungs clear to auscultation Cardiovascular: Rate/Rhythm: + tachycardic Heart Sounds: normal S1 and normal S2; no gallop, no murmur and no cardiac rub Gastrointestinal (Abdomen): normal bowel sounds, soft, nontender, no hepatosplenomegaly Musculoskeletal: Extremities: no cyanosis and no clubbing Skin: + mottling (improving) Neurologic: no focal motor deficits Results & Data Results & Data ([facility]) Vital Signs (Past 12 Hours) Vital Signs Temp Pulse Pulse Resp BP Pulse Ox 08/08/20 08:05 108 H 34 H 95 08/08/20 03:24 36.8 C 70 17 96/59 L 91 08/08/20 00:00 78 08/07/20 22:59 37 C 85 18 139/79 92 Critical Care Time Critical Care Time: Yes Total Critical Care Time: 45 Resident Activity Tracking Resident Involvement: Resident Care Provided Care Provided: Adult Hospital Medicine
--- NOTE | 2020-08-08 09:01 | Hospitalist Progress Note ---
Date of Service August 08, 2020 Assessment & Plan Admission and Anticipated Discharge Date Admission Date: August 06, 2020 Subjective Code yariel was called around 6:45/6:50am today.Resuscitation was done for about 15 minutes. Patient was in v fib arrest.prior to the code patient had few runs of v tach.Critical care and Er was present.CPR done by nursing staff. Patient received about 3 rounds of epinephrine, amiodarone and was shocked. Meanwhile patient was intubated.After spontaneous circulation returned patient was actively moving his extremities and he was sedated with fentanyl and versed and transferred to ICU. Cardiology was notified and saw the patient and advised for emergent cath. Patient was taken to label stamper . was called and updated few times and notified that patient is going to label stamper.. Results & Data Results & Data ([facility]) Vital Signs (Past 12 Hours) Vital Signs Temp Pulse Pulse Resp BP Pulse Ox 08/08/20 08:05 108 H 34 H 95 08/08/20 03:24 36.8 C 70 17 96/59 L 91 08/08/20 00:00 78 08/07/20 22:59 37 C 85 18 139/79 92
[2020-08-08] MEDS ORDERED: PROPOFOL BOLUS FROM BAG IV PRN (09:06)
--- NOTE | 2020-08-08 09:07 | Billing Data ---
Date of Service August 08, 2020 Coding Level of Care Code Critical Care 1st - mins
[2020-08-08] MEDS ORDERED: propofoL 1,000 MG/100 ML VIAL IV SCH (09:15)
--- NOTE | 2020-08-08 09:25 | Cardiac Catheterization ---
[facility] Data: [employer] Cardiac Status Clinical evaluation leading to the procedure CAD Presenation: Non STEMI Anginal Classification: CCS IV Heart Failure: No Cardiogenic Shock within 24 Hours: No Cardiac Arrest within 24 Hours: Yes Imaging Studies Past 6 Months: Yes Stress Studies Past 6 Months: No Diagnostic Physicians Name: Nolan Reed MD Status: Emergency Closure Device Percutaneous Entry Location: Femoral Closure Device: Angio-Seal Recommendations: PCI without planned CABG PCI Indication: PCI for high risk Non-JOSE RAFAEL Lesion Segment Name: distal LAD Culprit Artery: No Stenosis Prior to Rx (%): 70 Chronic Total Occlusion: No IVUS: Yes FFR: No Pre-Procedure CAITLIN Flow: 3 Previously Treated Lesion: No Lesion Complexity: Non-High/Non-C Lesion Length (mm): 12 Bifurcation Lesion: No Guidewire Across Lesion: Stenosis Post-Procedure (%): 0 Post-Procedure CAITLIN Flow: 3 Devices(s) Deployed: Yes Yes Intraprocedure Events Significant Disection: No Perforation: No Cardiac Cath Procedure Full Procedure Date August 08, 2020 Pre-Procedure Diagnosis Pre-Procedure Diagnosis: Cardiothoracic Symptom (Cardic arrest) AUC Score AUC Score: 9 Post-Procedure Diagnosis Post-Procedure Diagnosis: Severe CAD, Successful PCI and Elevated Intracardiac Pressures Procedure(s) Performed Procedure(s) Performed: Coronary Angiography, Left Heart Cath, Right Heart Cath, Drug Eluting Stent, Ultrasound Guided Vascular Access and IVUS Manager [facility] Nolan Reed MD Sas Developer Analyst(s) Loki Estimated Blood Loss Estimated Blood Loss: 15 Medication(s) Medication(s): Fentanyl, Heparin, Lidocaine 1%, Nicardipine, Nitroglycerin, Norepinephrine and Versed Medication(s): propofol amiodarone Summary of Findings Indication: Patient presented as an anterior STEMI 2 days ago and underwent primary PCI with 2 drug-eluting stents to occluded LAD as well as 1 drug-eluting stent to severe nonculprit proximal circumflex disease. This morning had a VT/VF arrest requiring defibrillation, amiodarone, intubation. Post ROSC had anterolateral ST depressions on ECG and brought back to [employer] to rule out stent thrombosis as precipitating event for cardiac arrest. Access: 6 Fr right common femoral artery under ultrasound guidance, 7 Fr right common femoral vein Catheters: EBU 3.75 guide, diagnostic JR4. 71st 1 Findings: LM -large caliber, mildly calcified, 20% distal disease LAD - widely patent proximal to mid LAD stents. Earlydistal 70% stenosis (unchanged from prior cath). Large apical vessel wraps around apex. Jailed D1, D2 with moderate ostial disease but CAITLIN-3 flow. LAD provides left to right collaterals via septals. Circumflex -medium caliber, proximal to mid stent widely patent, unchanged residual mild underexpansion in the midsegment of stent. 40% distal stenosis. Provides left to right collaterals. RCA - medium caliber, dominant, 95% proximal, 100% mid occlusion after takeoff of large RV branch. Distal vessels partially fill via right to right and [id number] collaterals. LVEDP -24 RA 11 RV 48/12 PA 34/14 (23) LV 24 PaSat 70% AoSat 93% Donta cardiac output 6.2 -- PCI distal LAD-- Antithrombotic therapy: Heparin, ticagrelor Procedure: Left main cannulated with EBU 3.75 guide BMW wire passed across stents, distal lesion into apical vessel [place] IVUS catheter placed into mid LAD IVUS revealed widely patent stents with no residual thrombus. Stents well expanded. No significant left main disease. Distal LAD dilated with 2.5 balloon. Distal LAD stented with 2.75 x 15 mm Kennan drug-eluting stent. Stent postdilated with stent balloon. Post procedure good angiographic result, stent well expanded. CAITLIN-3 flow throughout LAD Arterial Closure: Angio-Seal Summary: 1. VT/VF cardiac arrest 2. Widely patent proximal to mid LAD stents and proximal circumflex stent 3. Unchanged mid RCA 100% CAMP COOK with right to right and [id number] collaterals. 4. Unchanged earlydistal LAD 70% stenosis 5. Mildly elevated left and right-sided filling pressures. 6. Preserved cardiac output 7. Successful PCI of distal LAD with single drug-eluting stent (2.75 x 15 mm T[place]anda). Recommendations: Cardiac arrest appears secondary to post NC arrhythmia. No evidence of stent complications or new occlusive disease leading to repeat ischemic event. Return to ICU for continued monitoring Started on amiodarone infusion Further discussion with EP regarding ICD placement Continue DAPT with aspirin, ticagrelor Medical management of residual CAD. Hemodynamics Rest Ao:: 80/51/63 Final Ao: 115/58/87 LV: 110/24 Recommendations Recommendations: PCI without planned CABG Specimens Specimens: None Radiation Exposure (mGy) 2603 Contrast (mls) 130 Fluids (cc crystalloids) Fluids (cc crystalloids): 112 Drains Drains: none Anesthesia moderate 0759-905 Procedural Complication(s) None Disposition ICU I attest to the content of the Intraoperative Record and any orders documented therein. Any exceptions are noted below. ViteG Card Cath Procedure Codes Cardiac Catheterization Procedure 1: Cardiovascular Cath Procedures: 67648 Coronaries & LHC (+/-LV) & RHC Therapeutic Services & Ancillary Proc Procedure 1: Cardiovascular Tx and Anc Procedures: 33996 IV Ultrasound (Coronary or Graft) Procedure 2: Cardiovascular Tx and Anc Procedures: 97343 Ultrasonic Guidance Vascular Access Moderate Sedation Procedure 1: Sedation/Anesthesia: 56094 Mod Sedation by the same physician;Init15 Min Child Age 5 & Up Procedure 2: Sedation/Anesthesia: 75024 Mod Sedation by the same physician; Ea [id number] Minutes Stenting Procedure 1: Cardiovascular Stent Procedures: 52821 Perc transcatheter placement of intracoronary stent(s), with ang PG Care Time/CCT Total # of Minutes Spent Total Time Spent with Patient: Total time spent is greater than 50% in coordination of care (as documented) at patient's floor/unit and/or counseling patient:
[2020-08-08] MEDS: INSULIN GLARGINE SOLOSTAR 100 UNITS/ML 3 ML PEN SC SCH ×2 (09:58→20:17)
[2020-08-08] MEDS: DICLOFENAC SOD 1% GEL 100 GM TUBE EXT SCH ×3 (10:00→20:18)
[2020-08-08 10:13] LABS: iSTAT Arterial Blood Gas HCO3 22 meg/L (19-24); iSTAT Arterial Blood Gas pCO2 48 mmHg (35-46); iSTAT Arterial Blood Gas pH 7.27 (7.35-7.45); iSTAT Arterial Blood Gas pO2 70 mmHg (80-95); iSTAT Carbon Dioxide 23 mmol/L (24-31)
--- NOTE | 2020-08-08 10:25 | Billing Data ---
Date of Service August 08, 2020 Coding Level of Care Code Critical Care 1st - mins
[2020-08-08] MEDS: NOREPINEPHRINE/D5W 8 MG/508 ML BAG IV SCH (11:20)
--- NOTE | 2020-08-08 11:31 | Hospitalist Progress Note ---
Date of Service August 08, 2020 Assessment & Plan (1) Acute NC: ST elevation myocardial infarction (STEMI) of anterior wall This is a 70-year-old male who has significant past medical history of T2DM, HTN, HLD, arthritis who presented to ED secondary to chest pain while putting on a roof prior to arrival. EKG on admission showed sinus rhythm with resolution of the previously noted ST segment elevation, changes of old anterior, anterolateral NC noted wave inversions in the precordial leads. cardia cath was done with successful PCI to LAD and circumflex. 100% prox LAD occluded with PCI and 2 ZARA. 95% prox circumflex with PCI and 1 ZARA. Severe disease in non dominant RCA. Continue medical therapy to with dual antiplatelet therapy with aspirin and Brilinta Continue lisinopril, rosuvastatin and metoprolol This morning pt had cardiac arrest and was coded (2) Cardiac arrest: VF cardiac arrest in the setting of recent large anterolateral myocardial infarction. Emergent cardiac cath with successful PCI of distal LAD with single drug-eluting stent No evidence of stent complications or new occlusive disease leading to repeat ischemic event. Case discussed with cardiology that recommended to continue IV amiodarone drip Plan to eval for defibrillator during the hospital course Continue monitor closely in tele (3) JEMMA (acute kidney injury): Creatinine 1.35 today, baseline cr 1.0 Continue to hold metformin Continue monitor BMP (4) T2DM (type 2 diabetes mellitus): Most recent Hba1c 6.7 Continue to hold metformin lantus/novolog per protocol Pharmacy on board for glycemic management (5) Hypertension: BP controlled continue lisinopril/metoprolol (6) Hypercholesterolemia: continue statin Total chol 108, LDL 49, Trig 82, HDL 45 Arthritis pt with b/l hand arthritis takes diclofenac as outpt, advised against in setting of CAD will trial topical diclofenac gel (7) DVT prophylaxis: Off integrilin infusion place on lovenox q24h Dispo: Continue monitor in the ICU PCP: Tomy FULL CODE Admission and Anticipated Discharge Date Admission Date: August 06, 2020 Subjective Pt was seen and examined for follow up code blue due to cardiac arrest. Lying in bed with no distress Pt said that he only has some mild chest discomfort in the mid sternal region ar ound the area when the chest compression was performed Denies any any SOB, palpitation, dizziness and fever Review of Systems Review of Systems: All systems reviewed & are unremarkable except as noted in Subjective Physical Exam Physical Exam: General- No acute distress Head- atraumatic Eyes- PERRL, EOMI, ENT- oropharynx clear Neck- supple, no JVD Lungs- clear to auscultation Heart- regular rhythm; no murmur Abdomen- normal bowel sounds, soft, nontender Extremities- no calf tenderness Neuro- alert, oriented; PERRL, EOMI; no facial palsy; no dysarthria Skin- warm & dry Results & Data Results & Data ([facility]) Vital Signs (Past 12 Hours) Vital Signs Temp Pulse Pulse Resp BP Pulse Ox 08/08/20 10:42 67 22 95 08/08/20 09:40 70 24 98 08/08/20 08:05 108 H 34 H 95 08/08/20 03:24 36.8 C 70 17 96/59 L 91 08/08/20 00:00 78
[2020-08-08] MEDS: TICAGRELOR 90 MG TAB PO SCH ×2 (12:36→20:18)
[2020-08-08] MEDS: ROSUVASTATIN CALCIUM 20 MG TAB PO SCH (12:36)
--- NOTE | 2020-08-08 13:41 | Electrocardiogram Report ---
Test Reason : Blood Pressure : / mmHG Vent. Rate : 080 BPM Atrial Rate : 080 BPM P-R Int : 178 ms QRS Dur : 102 ms QT Int : 524 ms P-R-T Axes : 069 024 086 degrees QTc Int : 604 ms Sinus rhythm with occasional , and consecutive Premature ventricular complexes Possible Inferior infarct (cited on or before 08-JUN-2009) Prolonged QT Abnormal ECG When compared with ECG of 07-AUG-2020 10:10, Premature ventricular complexes are now Present T wave inversion more evident in Lateral leads QT has lengthened Confirmed by Nils Ovalle ([id number]) on 08/08/2020 1:40:41 PM Referred By: REFERRED SELF Confirmed By:Nils Ovalle
--- NOTE | 2020-08-08 13:44 | Electrocardiogram Report ---
Test Reason : Blood Pressure : / mmHG Vent. Rate : 132 BPM Atrial Rate : 125 BPM P-R Int : 136 ms QRS Dur : 150 ms QT Int : 352 ms P-R-T Axes : 000 130 028 degrees QTc Int : 521 ms Ventricular tachycardia Abnormal ECG When compared with ECG of 08-AUG-2020 05:00, (unconfirmed) Ventricular tachycardia is now Present Confirmed by Nils Ovalle ([id number]) on 08/08/2020 1:44:14 PM Referred By: REFERRED SELF Confirmed By:Nils Ovalle
--- NOTE | 2020-08-08 13:46 | Electrocardiogram Report ---
Test Reason : Blood Pressure : / mmHG Vent. Rate : 102 BPM Atrial Rate : 102 BPM P-R Int : 146 ms QRS Dur : 108 ms QT Int : 476 ms P-R-T Axes : 059 079 063 degrees QTc Int : 620 ms Sinus tachycardia Marked ST abnormality, possible anterolateral subendocardial injury Prolonged QT Abnormal ECG When compared with ECG of 08-AUG-2020 06:02, (unconfirmed) Ventricular tachycardia is no longer Present Confirmed by Nils Ovalle ([id number]) on 08/08/2020 1:46:14 PM Referred By: REFERRED SELF Confirmed By:Nils Ovalle
--- NOTE | 2020-08-08 14:30 | Electrocardiogram Report ---
Test Reason : Blood Pressure : / mmHG Vent. Rate : 065 BPM Atrial Rate : 065 BPM P-R Int : 176 ms QRS Dur : 100 ms QT Int : 506 ms P-R-T Axes : 052 050 078 degrees QTc Int : 526 ms Normal sinus rhythm Cannot rule out Inferior infarct , age undetermined Prolonged QT Abnormal ECG When compared with ECG of 08-AUG-2020 07:29, (unconfirmed) Serial changes of evolving Anterior infarct Confirmed by Nils Ovalle ([id number]) on 08/08/2020 2:30:25 PM Referred By: REFERRED SELF Confirmed By:Nils Ovalle
--- NOTE | 2020-08-08 15:01 | Pharmacy Report ---
Pharmacy Glycemic Short Note 2 - Date of Service August 08, 2020 - Glycemic Short BSG Results (Last 24 hours): 08/07/20 08/07/20 08/08/20 16:07 20:29 05:29 Glucose 118 H POC Glucose 113 H 100 H 08/08/20 08/08/20 08/08/20 06:58 09:56 12:07 Glucose 206 H POC Glucose 241 H 182 H OUTPATIENT ANTIDIABETIC REGIMEN: * Metformin 1000 mg BID * A1c Pending; per physician note 6.3% in June 2020 ASSESSMENT: 08/08: * Patient coded this morning, was intubated and came to the ICU. Predictably, BSG post arrest was elevated likely due to this stress response. BSGs prior to this were very well controlled. Patient received 26 units of insulin yesterday. * Per discussion at ICU rounds, anticipate extubation and diet resumption today. * Will continue with current NovoLog and adjust lantus scale for this evening to be a bit more conservative due to NPO status 08/07 * BSGs well controlled over last 24 hrs * Fasting BSG 126 today with 10 units Lantus on board - will continue "low" dose, weight based Lantus * Post-prandial BSGs have been well controlled with current Novolog CF and CR - will continue the same and monitor post-prandial pattern 08/06 * CHARLETTE is admitted ICU post PCI for STEMI. He does have a history of type II diabetes. Would like tight glycemic control in STEMI setting. * Will begin Novolog weight based stress of 2 parameters and lantus scale for dinner. Overnight checks. * Will dose lantus with scale initially with dinner, additional may be ordered HS if BSGs elevated PLAN FOR INPATIENT GLYCEMIC CONTROL: * Hold outpatient oral diabetes medications (metformin) * Basal insulin * Lantus 10 units BID - hold if BSG less than 160 * Bolus insulin * NovoLog per scale ACHS or Q6hrs while NPO * Goal Range: Low 110 mg/dL - High 140 mg/dL * Correction Factor: 20 mg/dL/unit * Nutritional / Prandial insulin per carb ratio of 1 unit per 7 grams CHO consumed PLAN FOR DISCHARGE: * given patient's A1c of 6.7%, he may resume metformin monotherapy on discharge if no contraindications to use are present
[2020-08-08] MEDS: AMIODARONE / D5W 360 MG/200 ML BAG IV SCH ×2 (15:32→22:27)
[2020-08-08] MEDS: lisinopril 2.5 MG TAB PO SCH (15:33)
[2020-08-08] MEDS: ASPIRIN 81 MG ECTAB PO SCH (15:33)
[2020-08-08] MEDS: METOPROLOL SUCC 25MG EXT REL TAB PO SCH (15:33)
[2020-08-08 15:49] LABS: BUN Creatinine Ratio 15.9 (10-20); Calcium 8.6 mg/dl (8.5-10.1); Creatinine Clr Calc Pharmacy 64.7 ml/min; Est GFR (African American) 60.8; Est GFR (Non-African American) 52.4; Potassium 3.9 mmol/L (3.5-5.1)
[2020-08-08] MEDS: ENOXAPARIN INJ 40 MG/0.4 ML SYR SQ SCH (20:19)
[2020-08-09] MEDS: fentaNYL citrate 100 MCG/2 ML VIAL IV PRN (03:50)
[2020-08-09 05:36] LABS: Hematocrit (blood only) 35.7 % (42-52); Hemoglobin 12.3 g/dL (14.0-18.0); Mean Corpuscular Hemoglobin 33.8 pg (25-34); Mean Corpuscular Hgb Conc 34.5 g/dL (32-36); Mean Corpuscular Volume 98.1 fL (80-100); Mean Platelet Volume 9.9 fL (7.4-10.4); Platelet Count 155 K/uL (130-400); RDW Coefficient of Variation 14.2 % (11.5-14.5); RDW Standard Deviation 51.2 fL (36.4-46.3); Red Blood Count 3.64 M/uL (4.7-6.1)
[2020-08-09 05:38] LABS: BUN Creatinine Ratio 18.1 (10-20); Creatinine Clr Calc Pharmacy 68.8 ml/min; Est GFR (African American) 65.4; Est GFR (Non-African American) 56.5; Magnesium 2.2 mg/dl (1.8-2.4); Potassium 3.8 mmol/L (3.5-5.1)
[2020-08-09 05:47] LABS: Albumin Globulin Ratio 0.8 (0.9-2); Globulin 3.6 gm/dl (2.5-4.0); Phosphorus 3.5 mg/dl (2.5-4.9); Total Protein 6.6 gm/dl (6.4-8.2); Troponin I 24.1 ng/ml (0-0.045)
[2020-08-09] MEDS: INSULIN ASPART 100 UNITS/ML 3 ML PEN SC SCH ×5 (07:46→20:09)
--- NOTE | 2020-08-09 07:59 | Critical Care Progress Note ---
Date of Service August 09, 2020 Assessment & Plan (1) Cardiac arrest: 70-year-old male with past medical history of type 2 diabetes, hypertension, dyslipidemia who was admitted due to STEMI, status post cardiac catheterization with PCI of the LAD & circumflex. Had been downgraded from ICU level of care to telemetry. Had cardiac arrest with code blue called and eventual achievement of ROSC. He was taken emergently for cath and now s/p a third stent placement in LAD. Neuro - CAM ICU: NEGATIVE Analgesia: Received Toradol 15mg x1 for residual chest pain related to compressions. Consider Tramadol for pain control. - Sedation discontinued after extubation yesterday AM post-catheterization - Fentanyl discontinued Cardiac - Cardiac arrest - Continue amiodarone gtt until after ICD placement at which point will likely transition to PO - Meds as below - Cardio following - Plan for ICD insertion today PM STEMI - Continue dual antiplatelet therapy with aspirin and Brilinta daily - Restart Crestor 20mg p.o. daily--transaminitis now trending down - Continue Metoprolol succinate 25 mg PO daily - Continue Lisinopril 2.5 mg p.o. daily (home dose is 10mg daily--increase as BP allows) Hypertension - Lisinopril and metoprolol as above Dyslipidemia - Restart rosuvastatin 20 mg p.o. daily as above Respiratory - - No current respiratory concerns GI - - NPO in anticipation of ICD placement later today RENAL/LYTES - - No renal/electrolyte concerns currently - Replace lytes as needed. - - No concerns at this time. ENDO - - DMII - BSG monitoring and management per unit protocol. SSI --> insulin gtt per unit protocol. HEME - - Stable H&H. ID - - No concerns for infection at this point. DVT ppx: Lovenox on hold in anticipation of ICD placement Thank you for allowing us to be part of this patient's care. Please refer to Dr. Britton's documentation for any further recommendations. (2) ST elevation myocardial infarction (STEMI) of anterior wall: (3) JEMMA (acute kidney injury): (4) DVT prophylaxis: (5) T2DM (type 2 diabetes mellitus): (6) Hypertension: (7) Hypercholesterolemia: Admission and Anticipated Discharge Date Admission Date: August 06, 2020 Supervising Physician Co-Signing Physician Notes Patient seen and examined. Discussed on multidisciplinary rounds and with the family practice resident. Agree with his assessment and plan as noted. Patient is done reasonably well status post his second stent. He is complaining of some mild chest pain we will see how he responds to nonsteroidal anti- inflammatories. Will discontinue parenteral narcotics. Discussed with cardiology. Plan to go for AICD today. Continue IV amiodarone and then transition to oral amiodarone. Patient appears to be improving significantly from a critical care standpoint. At this point time critical care services will sign off. Feel free to contact us if we can be of additional assistance. Subjective Patient reports feeling well this AM. Does have some soreness on his chest from the compressions but says it only hurts when he coughs. He has no concerns for cardiac chest pain, denies palpitations this AM. Review of Systems Review of Systems: All systems reviewed & are unremarkable except as noted in Subjective Physical Exam Constitutional: + obese and comfortable; no acute distress Eyes: PERRL, conjunctivae normal, anicteric sclerae ENMT: external ear and nose normal, oropharynx normal Neck: normal visual inspection Respiratory: normal respiratory effort, lungs clear to auscultation Cardiovascular: RRR, no murmur, no edema Heart Sounds: normal S1 and normal S2; no gallop and no cardiac rub Gastrointestinal (Abdomen): normal bowel sounds, soft, nontender, no hepatosplenomegaly Musculoskeletal: Extremities: no cyanosis and no clubbing Skin: no rashes, warm and dry Neurologic: CN's II-XI intact bilaterally; no focal motor deficits Results & Data Results & Data ([facility]) Vital Signs (Past 12 Hours) Vital Signs Temp Pulse Resp BP Pulse Ox 08/09/20 07:11 63 08/09/20 07:03 68 13 111/67 95 08/09/20 07:00 69 12 94 08/09/20 06:45 71 20 96 08/09/20 06:30 64 14 97 08/09/20 06:15 65 9 L 96 08/09/20 06:07 72 22 100/66 94 08/09/20 06:00 69 8 L 95 08/09/20 05:00 70 14 95 08/09/20 04:00 69 11 L 94 08/09/20 03:53 37.2 C 08/09/20 03:38 63 12 95 08/09/20 03:37 67 16 112/74 93 04/08/21 03:00 66 17 94 08/09/20 02:37 67 15 97/60 L 97 08/09/20 02:00 63 19 95 08/09/20 01:37 71 15 105/68 95 08/09/20 01:00 70 16 93 08/09/20 00:40 72 08/09/20 00:37 71 14 96 08/09/20 00:36 69 16 115/67 96 08/09/20 00:00 36.9 C 69 14 95 08/08/20 23:37 74 23 99/70 L 95 08/08/20 23:00 70 18 95 08/08/20 22:38 75 21 95 08/08/20 22:37 72 20 106/75 96 08/08/20 22:31 68 18 110/68 97 08/08/20 22:00 68 15 94 08/08/20 21:37 72 28 H 110/68 94 08/08/20 21:00 71 28 H 94 08/08/20 20:37 72 22 111/76 95 08/08/20 20:00 70 35 H 92 Resident Activity Tracking Resident Involvement: Resident Care Provided Care Provided: Adult Hospital Medicine
[2020-08-09] MEDS: INSULIN GLARGINE SOLOSTAR 100 UNITS/ML 3 ML PEN SC SCH ×2 (08:07→20:09)
[2020-08-09] MEDS: lisinopril 2.5 MG TAB PO SCH (08:07)
[2020-08-09] MEDS: ASPIRIN 81 MG ECTAB PO SCH (08:07)
[2020-08-09] MEDS: METOPROLOL SUCC 25MG EXT REL TAB PO SCH (08:07)
[2020-08-09] MEDS: DICLOFENAC SOD 1% GEL 100 GM TUBE EXT SCH ×3 (08:09→20:10)
[2020-08-09] MEDS: TICAGRELOR 90 MG TAB PO SCH ×2 (08:13→20:10)
[2020-08-09] MEDS: ROSUVASTATIN CALCIUM 20 MG TAB PO SCH (08:13)
[2020-08-09] MEDS ORDERED: Nursing to Pharmacy Communication SCH (08:15)
[2020-08-09] MEDS ORDERED: KETOROLAC TROMETHAMINE 15 MG/ML VIAL IV STA (09:39)
[2020-08-09] MEDS: NOREPINEPHRINE/D5W 8 MG/508 ML BAG IV SCH (10:16)
--- NOTE | 2020-08-09 10:19 | Cardiology Consultation ---
Date of Consultation August 09, 2020 Assessment & Plan (1) Cardiac arrest: (2) ST elevation myocardial infarction (STEMI) of anterior wall: (3) Hypertension: (4) Hypercholesterolemia: Potassium 3.8, magnesium 2.2 this am. Off Norepinephrine since 2 pm yesterday. Had one time dose of toradol for chest wall pain this am. No additional VT since Code Blue, repeat cardiac catheterization, and start of amiodarone infusion. Pt status post PCP , ZARA to LAD , and Cx. Has residual chronic total occlusion of a small RCA , not amenable to PCI. LVEF pre CODE BLUE was 35-40% with large anteroseptal, anterior, anterolateral, apical wall motion abnormality. Medications: continue IV amiodarone. Add PO after ICD. Continue ASA, Brilinta, lisinopril, rosuvastatin, Toprol. Holding SQ lovenox for tonight post ICD to reduce risk of pocket hematoma. Plan for dual chamber ICD this afternoon. Continue incentive spirometry. Remain in ICU. Updated spouse, Lucila, by phone. History of Present Illness Attending Physician: Eleazar Shipman MD History of Present Illness Patient seen in cardiology follow up of acute CO ,and subsequent VF cardiac arrest. He was extubated yesterday. Feels well with exception of chest wall pain from CPR / chest compression. Telemetry reveals SR in the 70s. No additional VT since cardiac catheterization yesterday. Allergies Allergy/AdvReac Type Severity Reaction Status Date / Time Sulfa (Sulfonamide Allergy Unknown HIVES Unverified 02/23/20 23:00 Antibiotics) Penicillins AdvReac Mild NAUSEA, Unverified 02/23/20 23:00 VOMITING Home Medications Medication Instructions Recorded Confirmed Type diclofenac sodium 75 mg PO BID 02/23/20 08/06/20 History lisinopril 10 mg PO DAILY 02/23/20 08/06/20 History metformin 1,000 mg PO BID 02/23/20 08/06/20 History rosuvastatin 5 mg PO DAILY 02/23/20 08/06/20 History cyanocobalamin (vitamin B-12) 1,000 mcg PO DAILY 08/06/20 08/06/20 History Patient History Medical History AAA (abdominal aortic aneurysm) Arthritis Hypercholesterolemia Hypertension Hypoglycemic episode in patient with diabetes mellitus Rheumatoid arthritis T2DM (type 2 diabetes mellitus) Surgical History History of colonoscopy S/P rotator cuff repair Family History Father Myocardial infarction, Onset Age: 63 Mother , 78 Myocardial infarction Diabetes Brother Myocardial infarction, Onset Age: 53 Sister Myocardial infarction, Onset Age: 63 Coronary heart disease Social History Smoking Status: Never smoker packs per day: 1; Years Smoked: 15; Hx Alcohol Use: No Hx Substance Use: No Preferred Language: Kenyan Communication Ability: Effective Biometric Screener Required: No Beliefs That Will Affect Care: None marital status: Current Living Situation: Spouse current occupational status: employed current occupation: [employer] Other Information That Helps Us Care for You: No Feels Safe at Home: Yes Safety Concerns: Feels Safe At This Time Assistive Devices: Glasses and Oxygen - Continuous Review of Systems Review of Systems: All systems reviewed & are unremarkable except as noted in HPI & below Physical Exam Physical Exam: Temp Pulse Resp BP Pulse Ox 37.0 C 73 13 111/67 95 08/09/20 07:57 08/09/20 08:00 08/09/20 07:03 08/09/20 07:03 08/09/20 07:03 Constitutional: WD/WN, vitals as above Respiratory: normal respiratory effort, lungs clear to auscultation Cardiovascular: RRR, no murmur, no edema Gastrointestinal (Abdomen): normal bowel sounds, soft, nontender, no hepatosplenomegaly Neurologic: PERRL, EOMI, accommodation nl, no face palsy, no dysarthria Results & Data ([facility]) Vital Signs (Past 12 Hours) Vital Signs Temp Pulse Resp BP Pulse Ox 08/09/20 08:00 73 08/09/20 07:57 37.0 C 08/09/20 07:11 63 08/09/20 07:03 68 13 111/67 95 08/09/20 07:00 69 12 94 08/09/20 06:45 71 20 96 08/09/20 06:30 64 14 97 08/09/20 06:15 65 9 L 96 08/09/20 06:07 72 22 100/66 94 08/09/20 06:00 69 8 L 95 08/09/20 05:00 70 14 95 08/09/20 04:00 69 11 L 94 08/09/20 03:53 37.2 C 08/09/20 03:38 63 12 95 08/09/20 03:37 67 16 112/74 93 08/09/20 03:00 66 17 94 08/09/20 02:37 67 15 97/60 L 97 08/09/20 02:00 63 19 95 08/09/20 01:37 71 15 105/68 95 08/09/20 01:00 70 16 93 08/09/20 00:40 72 08/09/20 00:37 71 14 96 08/09/20 00:36 69 16 115/67 96 08/09/20 00:00 36.9 C 69 14 95 08/08/20 23:37 74 23 99/70 L 95 08/08/20 23:00 70 18 95 08/08/20 22:38 75 21 95 08/08/20 22:37 72 20 106/75 96 08/08/20 22:31 68 18 110/68 97 Laboratory Results Cardiac Enzymes 08/09/20 Range/Units 04:45 AST 137 H (15-37) U/L Troponin I 24.100 H* (0-0.045) ng/ml CBC 08/09/20 Range/Units 04:45 WBC 9.50 (4.8-10.8) K/uL RBC 3.64 L (4.7-6.1) M/uL Hgb 12.3 L (14.0-18.0) g/dL Hct 35.7 L (42-52) % Plt Count 155 (130-400) K/uL Comprehensive Metabolic Panel 08/08/20 08/09/20 Range/Units 15:04 04:45 Sodium 136 137 (136-145) mmol/L Potassium 3.9 3.8 (3.5-5.1) mmol/L Chloride 106 106 (98-107) mmol/L Carbon Dioxide 23 26 (21-32) mmol/L BUN 22 H 23 H (7-18) mg/dl Creatinine 1.35 1.27 (0.6-1.4) mg/dl Glucose 131 H 139 H (70-99) mg/dl Calcium 8.6 8.0 L (8.5-10.1) mg/dl AST 137 H (15-37) U/L ALT 174 H (12-78) U/L Alkaline Phosphatase 45 (45-117) U/L Total Protein 6.6 (6.4-8.2) gm/dl Albumin 3.0 L (3.4-5.0) gm/dl Intake and Output 08/08/20 08/09/20 08/09/20 22:59 06:59 14:59 Intake Total 740.508 / 825.864 0 / 0 Output Total 125 / 475 125 / 475 Balance 615.508 / 350.864 -125 / 350.864 0 / 0 Intake: IV 115.508 / 200.864 0 / 0 NEXTERONE / D5W 360 mg In 200 115.508 / 115.508 ml @ 0.5 MG/MIN 16.667 mls/hr IV .Q12H [facility] Rx#:[id number] LEVOPHED/D5W 8 mg In 508 ml @ 0 0 / 0 .05 MCG/KG/MIN 22.555 mls/hr IV .[id number] [facility] Rx#:[id number] Oral 625 / 625 Output: Urine 125 / 250 125 / 250 Other: # Unmeasured Voids 1 1 Weight 104.9 kg Weight Measurement Method Built in [facility]
[2020-08-09] MEDS: AMIODARONE / D5W 360 MG/200 ML BAG IV SCH ×2 (10:20→22:25)
--- NOTE | 2020-08-09 13:16 | Billing Data ---
Date of Service August 09, 2020 Coding Level of Care Code 15047 Subseq Hosp Care Lvl 3
--- NOTE | 2020-08-09 14:41 | Hospitalist Progress Note ---
Date of Service August 09, 2020 Assessment & Plan (1) Acute IA: ST elevation myocardial infarction (STEMI) of anterior wall This is a 70-year-old male who has significant past medical history of T2DM, HTN, HLD, arthritis who presented to ED secondary to chest pain while putting on a roof prior to arrival. EKG on admission showed sinus rhythm with resolution of the previously noted ST segment elevation, changes of old anterior, anterolateral IA noted wave inversions in the precordial leads. cardia cath was done with successful PCI to LAD and circumflex. 100% prox LAD occluded with PCI and 2 ZARA. 95% prox circumflex with PCI and 1 ZARA. Severe disease in non dominant RCA. Continue medical therapy to with dual antiplatelet therapy with aspirin and Brilinta Continue lisinopril, rosuvastatin and metoprolol clinically stable (2) Cardiac arrest: VF cardiac arrest in the setting of recent large anterolateral myocardial infarction. Emergent cardiac cath with successful PCI of distal LAD with single drug-eluting stent No evidence of stent complications or new occlusive disease leading to repeat ischemic event. Case discussed with cardiology that recommended to continue IV amiodarone drip Plan to get AICD placement later today Continue monitor closely (3) JEMMA (acute kidney injury): Creatinine 1.2 today, baseline cr 1.0 Continue to hold metformin Continue monitor BMP (4) T2DM (type 2 diabetes mellitus): Most recent Hba1c 6.7 Continue to hold metformin lantus/novolog per protocol Pharmacy on board for glycemic management (5) Transaminitis: Mostly related to the code blue LFT trending down with AST 137 and ALT 174 Continue monitor LFT (6) Hypertension: BP controlled continue lisinopril/metoprolol (7) Hypercholesterolemia: continue statin Total chol 108, LDL 49, Trig 82, HDL 45 Arthritis pt with b/l hand arthritis takes diclofenac as outpt, advised against in setting of CAD will trial topical diclofenac gel (8) DVT prophylaxis: Off integrilin infusion place on lovenox q24h Dispo: will transfer out of ICU when stable after the AICD placement PCP: Tomy FULL CODE Admission and Anticipated Discharge Date Admission Date: August 06, 2020 Subjective Pt was seen and examined for follow up cardiac arrest Lying in bed with no distress Pt said that he feels ok He is scheduled to get AICD placement later Denies any chest pain, palpitation, dizziness and SOB Review of Systems Review of Systems: All systems reviewed & are unremarkable except as noted in Subjective Physical Exam Physical Exam: General- No acute distress Head- atraumatic Eyes- PERRL, EOMI, ENT- oropharynx clear Neck- supple, no JVD Lungs- clear to auscultation Heart- regular rhythm; no murmur Abdomen- normal bowel sounds, soft, nontender Extremities- no calf tenderness Neuro- alert, oriented; PERRL, EOMI; no facial palsy; no dysarthria Skin- warm & dry Results & Data Results & Data ([facility]) Vital Signs (Past 12 Hours) Vital Signs Temp Pulse Resp BP Pulse Ox 08/09/20 12:22 36.7 C 08/09/20 12:19 72 24 139/85 95 08/09/20 10:37 68 15 126/75 95 08/09/20 09:53 70 19 114/70 94 08/09/20 08:08 73 13 120/69 95 08/09/20 08:00 73 08/09/20 07:57 37.0 C 08/09/20 07:11 63 08/09/20 07:03 68 13 111/67 95 08/09/20 07:00 69 12 94 08/09/20 06:45 71 20 96 08/09/20 06:30 64 14 97 08/09/20 06:15 65 9 L 96 08/09/20 06:07 72 22 100/66 94 08/09/20 06:00 69 8 L 95 08/09/20 05:00 70 14 95 08/09/20 04:00 69 11 L 94 08/09/20 03:53 37.2 C 08/09/20 03:38 63 12 95 08/09/20 03:37 67 16 112/74 93 08/09/20 03:00 66 17 94
[2020-08-09] MEDS ORDERED: LIDOCAINE HCL 1% 20 ML VIAL ONE (15:08)
[2020-08-09] MEDS ORDERED: BUPIVACAINE 0.25% 30 ML VIAL ONE (15:08)
[2020-08-09] MEDS ORDERED: BACITRACIN INJ 50,000 UNIT VIAL ONE (15:10)
[2020-08-09] MEDS ORDERED: fentaNYL citrate 100 MCG/2 ML VIAL ONE (15:14)
[2020-08-09] MEDS ORDERED: MIDAZOLAM HCL 5 MG/ML 1 ML VIAL ONE (15:14)
[2020-08-09] MEDS ORDERED: CLINDAMYCIN PHOS 300 MG/2 ML VIAL ONE (15:22)
--- NOTE | 2020-08-09 15:30 | History & Physical Bridge Note ---
Date of Service August 09, 2020 History & Physical Bridge Note I have examined the patient, reviewed the History & Physical and in the interval since the performance of the History & Physical I have noted the following changes of clinical significance: pt with VF arrest not related to any acute in- stent restenosis; most likely due to ICM; for a dual chamber ICD prior to hospital discharge. discussed the procedure and potential risks; consents signed
--- NOTE | 2020-08-09 15:30 | Pre Anesthesia Assessment ---
Date of Service August 09, 2020 Pre Sedation Assessment Vital Signs Temp Pulse Pulse Resp BP Pulse Ox 08/09/20 15:05 76 08/09/20 12:22 36.7 C 08/09/20 12:19 72 24 139/85 95 08/09/20 10:37 68 15 126/75 95 08/09/20 09:53 70 19 114/70 94 08/09/20 08:08 73 13 120/69 95 08/09/20 08:00 73 08/09/20 07:57 37.0 C 08/09/20 07:11 63 08/09/20 07:03 68 13 111/67 95 08/09/20 07:00 69 12 94 08/09/20 06:45 71 20 96 08/09/20 06:30 64 14 97 08/09/20 06:15 65 9 L 96 08/09/20 06:07 72 22 100/66 94 08/09/20 06:00 69 8 L 95 08/09/20 05:00 70 14 95 08/09/20 04:00 69 11 L 94 08/09/20 03:53 37.2 C 08/09/20 03:38 63 12 95 08/09/20 03:37 67 16 112/74 93 08/09/20 03:00 66 17 94 08/09/20 02:37 67 15 97/60 L 97 08/09/20 02:00 63 19 95 08/09/20 01:37 71 15 105/68 95 08/09/20 01:00 70 16 93 08/09/20 00:40 72 08/09/20 00:37 71 14 96 08/09/20 00:36 69 16 115/67 96 08/09/20 00:00 36.9 C 69 14 95 08/08/20 23:37 74 23 99/70 L 95 08/08/20 23:00 70 18 95 08/08/20 22:38 75 21 95 08/08/20 22:37 72 20 106/75 96 08/08/20 22:31 68 18 110/68 97 08/08/20 22:00 68 15 94 08/08/20 21:37 72 28 H 110/68 94 08/08/20 21:00 71 28 H 94 08/08/20 20:37 72 22 111/76 95 08/08/20 20:00 70 35 H 92 08/08/20 19:49 37.1 C 08/08/20 19:37 72 15 96 08/08/20 19:36 73 14 114/72 93 08/08/20 19:00 76 33 H 95 08/08/20 18:01 76 27 H 104/63 93 08/08/20 18:00 73 16 93 08/08/20 17:46 73 28 H 104/64 93 08/08/20 17:17 76 21 116/62 94 08/08/20 16:30 73 15 111/64 94 08/08/20 16:00 36.8 C 69 08/08/20 15:31 73 16 97/67 L 98 Cardiovascular + regular rhythm Respiratory normal respiratory effort, lungs clear to auscultation Pre-Sedation Airway Assessment Smoking Status: Never smoker Hx Sleep Apnea: No Hx Difficult Intubation: No Short, Thick Neck: No Thyromental Distance: > or= 3.5 Finger Breadths Oral Cavity: + WNL Mallampati Class: III ASA: ASA3 NPO Status Date of Last Intake of Fluids: 08/08/20 Date of Last Intake of Solid Food: 08/08/20 Procedure Planning Contraindications for Sedation: none Current Medications Reviewed: Yes Notes The planned sedation has been discussed with the patient. Informed Consent was obtained. I have identified the patient, determined the appropriateness of sedation and have assessed the patient immediately prior to the procedure. All medicine(s) and interventions are by my order.
--- NOTE | 2020-08-09 16:50 | Post Anesthesia Assessment ---
Date of Service August 09, 2020 Post Sedation Assessment Vital Signs Temp Pulse Pulse Resp BP Pulse Ox 08/09/20 15:05 76 08/09/20 12:22 36.7 C 08/09/20 12:19 72 24 139/85 95 08/09/20 10:37 68 15 126/75 95 08/09/20 09:53 70 19 114/70 94 08/09/20 08:08 73 13 120/69 95 08/09/20 08:00 73 08/09/20 07:57 37.0 C 08/09/20 07:11 63 08/09/20 07:03 68 13 111/67 95 08/09/20 07:00 69 12 94 08/09/20 06:45 71 20 96 08/09/20 06:30 64 14 97 08/09/20 06:15 65 9 L 96 08/09/20 06:07 72 22 100/66 94 08/09/20 06:00 69 8 L 95 08/09/20 05:00 70 14 95 08/09/20 04:00 69 11 L 94 08/09/20 03:53 37.2 C 08/09/20 03:38 63 12 95 08/09/20 03:37 67 16 112/74 93 08/09/20 03:00 66 17 94 08/09/20 02:37 67 15 97/60 L 97 08/09/20 02:00 63 19 95 08/09/20 01:37 71 15 105/68 95 08/09/20 01:00 70 16 93 08/09/20 00:40 72 08/09/20 00:37 71 14 96 08/09/20 00:36 69 16 115/67 96 08/09/20 00:00 36.9 C 69 14 95 08/08/20 23:37 74 23 99/70 L 95 08/08/20 23:00 70 18 95 08/08/20 22:38 75 21 95 08/08/20 22:37 72 20 106/75 96 08/08/20 22:31 68 18 110/68 97 08/08/20 22:00 68 15 94 08/08/20 21:37 72 28 H 110/68 94 08/08/20 21:00 71 28 H 94 08/08/20 20:37 72 22 111/76 95 08/08/20 20:00 70 35 H 92 08/08/20 19:49 37.1 C 08/08/20 19:37 72 15 96 08/08/20 19:36 73 14 114/72 93 08/08/20 19:00 76 33 H 95 08/08/20 18:01 76 27 H 104/63 93 08/08/20 18:00 73 16 93 08/08/20 17:46 73 28 H 104/64 93 08/08/20 17:17 76 21 116/62 94 Recovery Score Activity: Moves 4 extremities Respiration: Deep Breath/Cough Circulation: +/-20% PreAnes Value Consciousness: Fully Awake Oxygen Saturation: O2 needed for >90% Discharge Sedation Level of Care: Fast Track Phase II Post Sedation Plan On clinical assessment, the patient appears to have tolerated the sedation without complications. Patient is recovering as anticipated. Patient will continue to be monitored by nursing and may be discharged when sedation discharge criteria are met per below protocol. Upon Completions of procedure up to 15 minutes continue every 5 minute vital signs and the P.A.R. score; then discharge to a Phase I or Fast Track to Phase II per the following guidelines: * Discharge Patient to appropriate Phase II area if PAR is 8 or greater or return to pre- procedure baseline. The post - procedure orders will be as directed. * If PAR score is less than 8 or not return to pre-procedure baseline then patient will follow Phase I monitoring till PAR is reached for Phase II. The Phase I may be done in procedure room or may call to secure a Phase I area. * If naloxone or flumazenil are used for reversal, hold in Phase I for continued monitoring from when last reversal dose was given for a minimum of 60 minutes or longer pending the nurse and/or physician discretion of patient condition before discharge to Phase II. Please call the Sedation Physician to re-evaluate and complete post-note for discharge to Phase II area. Do NOT discharge from procedure sedation or Phase 1 until post- sedation evaluation note is complete by procedure /sedation MD Sedation Discharge Instructions to be given to the patient at discharge to home.
--- NOTE | 2020-08-09 16:50 | Operative Report ---
Post Operative Report Pre & Post Diagnosis VF arrest, ICM Operation Date: 08/06/20 12:30 <No data on this case meets the specified criteria> Operation Date: 08/08/20 07:40 <No data on this case meets the specified criteria> Operation Date: 08/09/20 15:00 <No data on this case meets the specified criteria> I identified the patient and participated in the time-out.: Yes Procedure Operation Date: 08/06/20 12:30 Actual Procedures p Aspiration/PCI w/ZARA for Stemi - [place] Reed MD s IVUS Coronary Single Vessel - Montana Reed MD s Cath, Left with Cors and Vent - Montana Reed MD s Cineradiography w/Routine Exam - Montana Reed MD s Drug Eluting Stent each ADDTL Vessel - Montana Reed MD Operation Date: 08/08/20 07:40 Actual Procedures s Cineradiography w/Routine Exam - Montana Reed MD p Cath, Right and Left Heart - Montana Reed MD s IVUS Coronary Single Vessel - Montana Reed MD s Drug Eluting Stent SGl Vessel - Montana Reed MD s Ultrasound Vascular Access - Montana Reed MD Operation Date: 08/09/20 15:00 Actual Procedures p ICD Insertion Single or Dual - Corinne Thomas, Surgeon Corinne Thomas, DO [employer] Estimated Blood Loss 20 Findings Consistent with Post-Op Diagnosis Specimens none Description of Procedure see official report I attest to the content of the Intraoperative Record and any orders documented therein. Any exceptions are noted below.
[2020-08-09] MEDS: KETOROLAC TROMETHAMINE 15 MG/ML VIAL IV PRN (17:27)
[2020-08-09] MEDS: AMIODARONE 200 MG TAB PO SCH (17:28)
[2020-08-10] MEDS: KETOROLAC TROMETHAMINE 15 MG/ML VIAL IV PRN (01:12)
[2020-08-10] MEDS: traMADol HCL 50 MG TABLET PO PRN ×2 (04:13→08:07)
[2020-08-10 05:16] LABS: Hemoglobin 11.8 g/dL (14.0-18.0); Mean Corpuscular Hemoglobin 33.8 pg (25-34); Mean Corpuscular Hgb Conc 34.7 g/dL (32-36); Mean Corpuscular Volume 97.4 fL (80-100); Mean Platelet Volume 10.3 fL (7.4-10.4); Platelet Count 150 K/uL (130-400); RDW Coefficient of Variation 14.2 % (11.5-14.5); RDW Standard Deviation 50.7 fL (36.4-46.3); Red Blood Count 3.49 M/uL (4.7-6.1); White Blood Count 7.82 K/uL (4.8-10.8)
[2020-08-10 05:45] LABS: Albumin Level 3.1 gm/dl (3.4-5.0); BUN Creatinine Ratio 22.2 (10-20); Calcium 8.4 mg/dl (8.5-10.1); Creatinine Clr Calc Pharmacy 66.8 ml/min; Est GFR (Non-African American) 58.7; Magnesium 2.2 mg/dl (1.8-2.4); Potassium 3.5 mmol/L (3.5-5.1)
[2020-08-10 05:48] LABS: Albumin Globulin Ratio 0.9 (0.9-2); Globulin 3.6 gm/dl (2.5-4.0); Phosphorus 3.6 mg/dl (2.5-4.9); Total Protein 6.7 gm/dl (6.4-8.2)
[2020-08-10] MEDS ORDERED: POTASSIUM CHLORIDE CRTAB 20 MEQ TABCR PO STA (06:04)
[2020-08-10] MEDS: POTASSIUM CHLORIDE / WTR 10 MEQ/100 ML PLCT IV SCH ×2 (06:12→07:10)
--- NOTE | 2020-08-10 06:50 | XRay Report ---
XR chest 2V PA/lateral HISTORY: 70 years-old Male s/p icd status post placement of a left subclavian pacer COMPARISON: Chest radiograph 08/08/2020 TECHNIQUE: PA and lateral views of the chest FINDINGS: Left subclavian pacer/AICD. Cardiomegaly. No pneumothorax. Blunting of the costophrenic angles sugges tive of trace pleural effusions. There is improved aeration of the lungs with decreased pulmonary vas cular congestion. Mild basilar densities. Degenerative changes of the shoulders and spine. IMPRESSION: 1. Status post placement of a left subclavian pacer/AICD. No pneumothorax. 2. Improved aeration of the lungs with minimal bibasilar densities favoring atelectasis. 3. Trace pleural effusions. ACT 112: Negative or not required by law. The above report was generated using voice recognition software. It may contain grammatical, syntax o r spelling errors. Electronically signed by: Jorge Miranda M.D. 08/10/2020 6:49 AM
[2020-08-10] MEDS: INSULIN GLARGINE SOLOSTAR 100 UNITS/ML 3 ML PEN SC SCH ×2 (08:05→20:24)
[2020-08-10] MEDS: INSULIN ASPART 100 UNITS/ML 3 ML PEN SC SCH ×4 (08:06→20:25)
[2020-08-10] MEDS: lisinopril 2.5 MG TAB PO SCH (08:08)
[2020-08-10] MEDS: METOPROLOL SUCC 50MG EXT REL TAB PO SCH (08:09)
[2020-08-10] MEDS: TICAGRELOR 90 MG TAB PO SCH ×2 (08:09→20:24)
[2020-08-10] MEDS: AMIODARONE 200 MG TAB PO SCH ×3 (08:09→17:15)
[2020-08-10] MEDS: ROSUVASTATIN CALCIUM 20 MG TAB PO SCH (08:09)
[2020-08-10] MEDS: ASPIRIN 81 MG ECTAB PO SCH (08:09)
[2020-08-10] MEDS: DICLOFENAC SOD 1% GEL 100 GM TUBE EXT SCH ×3 (08:10→20:25)
--- NOTE | 2020-08-10 09:13 | Cardiology Progress Note ---
Date of Service August 10, 2020 Assessment & Plan (1) Cardiac arrest: s/p VF in hospital arrest. Successful resuscitation. Repeat cath =patent LAD, Cx territory stents, additional late mid / early distal LAD stenosis treated with PCI / ZARA. DC IV amiodarone. Continue oral load. Metoprolol. s/p ICD 08/09, CXR 08/10 , no pneumothorax. Trace pleural effusions. Incision looks great. Await interrogation. (2) ST elevation myocardial infarction (STEMI) of anterior wall: Newly diagnosed Ischemic CM (this admission), well compensated, LVEF 35%. Presented 4/5 large anterior, anteroseptal, anterolateral, apical STEMI. Emergent catheterization . Patient status post PCI, 2 drug-eluting stents to the mid LAD, 1 drug-eluting stent to the mid circumflex. Patient was found to have 100% proximal LAD occlusion for which he underwent PCI. He then underwent PCI of the circumflex. While on table, recurrent EKG changes were then noted, and he was found to have a thrombotic occlusion of the LAD for which repeat intervention was performed and the patient was transferred to the intensive care unit on an Integrilin infusion. Severe residual disease in a small nondominant RCA noted. Continue ASA, Brilinta, Toprol, Lisinopril, Rosuvastatin. (3) Transaminitis: Likely due to hemodynamic insult post CODE BLUE. Continue amiodarone, rosuvastatin. Repeat LFTs in am. (4) Hypertension: Required norepinephrine support. BP improved. Continue Toprol, lisinopril. (5) Hypercholesterolemia: Continue rosuvastatn 20 mg daily. (6) Chest wall pain: From chest compressions. Not candidate for NSAIDS. Agree with Tramadol. Holding off on tylenol pending improvement in LFTs. Disposition: if no arrhythmias off of amiodarone infusion, OK for telemetry status later this am. DVT prophylaxis: Resume lovenox 40 mg SQ daily. As pocket looks good without h ematoma. Admission and Anticipated Discharge Date Admission Date: August 06, 2020 Subjective Patient seen in cardiology follow up. Feeling well overall. No arrhythmias yesterday or overnight. Only complaint is 10/10 chest wall pain when he coughs related to chest trauma for compressions. Review of Systems Review of Systems: All systems reviewed & are unremarkable except as noted in HPI & below Physical Exam Physical Exam: Temp Pulse Resp BP Pulse Ox 36.9 C 71 23 127/77 90 08/10/20 04:00 08/10/20 08:00 08/10/20 08:00 08/10/20 08:00 08/10/20 08:00 Constitutional: WD/WN, vitals as above Respiratory: normal respiratory effort, lungs clear to auscultation Cardiovascular: RRR, no murmur, no edema Chest (Breasts): Additional Comments: left pacemaker pocket , clean dry intact with, no hematoma Gastrointestinal (Abdomen): normal bowel sounds, soft, nontender, no hepatosplenomegaly Neurologic: PERRL, EOMI, accommodation nl, no face palsy, no dysarthria Results & Data ([facility]) Vital Signs (Past 12 Hours) Vital Signs Temp Pulse Resp BP Pulse Ox 08/10/20 08:00 71 23 127/77 90 08/10/20 06:18 67 26 H 125/75 91 08/10/20 06:00 66 92 08/10/20 05:58 68 23 122/78 91 08/10/20 05:18 66 20 117/75 92 08/10/20 05:00 71 26 H 95 08/10/20 04:48 71 23 135/75 94 08/10/20 04:18 67 19 129/76 94 08/10/20 04:00 36.9 C 72 16 93 08/10/20 03:48 67 21 123/73 96 08/10/20 03:18 69 18 121/70 96 08/10/20 03:00 65 22 96 08/10/20 02:48 62 22 124/70 92 08/10/20 02:18 64 16 122/70 92 08/10/20 02:00 66 19 96 08/10/20 01:48 65 18 135/79 92 08/10/20 01:18 76 24 151/91 H 08/10/20 01:00 74 22 93 08/10/20 00:47 76 17 141/85 H 93 08/10/20 00:18 74 16 95 08/10/20 00:17 75 19 143/88 H 95 08/10/20 00:14 74 08/10/20 00:00 37.2 C 73 28 H 95 08/09/20 23:47 134/77 08/09/20 23:18 73 23 92 08/09/20 23:17 72 21 139/78 98 08/09/20 23:00 74 25 H 93 08/09/20 22:57 73 21 142/80 H 94 08/09/20 22:17 74 18 135/85 92 08/09/20 22:00 75 18 93 08/09/20 21:47 73 25 H 132/86 93 08/09/20 21:17 73 20 131/82 94 08/09/20 21:00 69 14 95 08/09/20 20:54 72 23 94 08/09/20 20:53 73 29 H 127/71 94 Laboratory Results Cardiac Enzymes 08/10/20 Range/Units 04:48 AST 66 H (15-37) U/L CBC 08/10/20 Range/Units 04:48 WBC 7.82 (4.8-10.8) K/uL RBC 3.49 L (4.7-6.1) M/uL Hgb 11.8 L (14.0-18.0) g/dL Hct 34.0 L (42-52) % Plt Count 150 (130-400) K/uL Comprehensive Metabolic Panel 08/10/20 Range/Units 04:48 Sodium 137 (136-145) mmol/L Potassium 3.5 (3.5-5.1) mmol/L Chloride 107 (98-107) mmol/L Carbon Dioxide 24 (21-32) mmol/L BUN 27 H (7-18) mg/dl Creatinine 1.23 (0.6-1.4) mg/dl Glucose 134 H (70-99) mg/dl Calcium 8.4 L (8.5-10.1) mg/dl AST 66 H (15-37) U/L ALT 123 H (12-78) U/L Alkaline Phosphatase 46 (45-117) U/L Total Protein 6.7 (6.4-8.2) gm/dl Albumin 3.1 L (3.4-5.0) gm/dl Intake and Output 08/09/20 08/10/20 08/10/20 22:59 06:59 14:59 Intake Total 250 / 448.452 436.667 / 436.667 Output Total 1 / 129 128 / 129 Balance 249 / 319.452 -128 / 319.452 436.667 / 436.667 Intake: IV 200 / 398.452 196.667 / 196.667 NEXTERONE / D5W 360 mg In 200 200 / 398.452 ml @ 0.5 MG/MIN 16.667 mls/hr IV .Q12H [facility] Rx#:[id number] K RIDER / WTR 10 meq In 100 ml 196.667 / 196.667 @ 100 mls/hr IV Q1H [facility] Rx#: [id number] Oral 50 / 50 240 / 240 Output: Urine 125 / 125 # Bowel Movements 1 / 4 3 / 4 Other: # Unmeasured Voids 1 1 1
[2020-08-10] MEDS: ENOXAPARIN INJ 40 MG/0.4 ML SYR SQ SCH (10:02)
--- NOTE | 2020-08-10 12:19 | Pharmacy Report ---
Pharmacy Glycemic Short Note 2 - Date of Service August 10, 2020 - Glycemic Short BSG Results (Last 24 hours): 08/09/20 08/09/20 08/10/20 17:20 20:07 04:48 Glucose 134 H POC Glucose 121 H 131 H 08/10/20 08/10/20 07:30 11:31 Glucose POC Glucose 127 H 144 H OUTPATIENT ANTIDIABETIC REGIMEN: * Metformin 1000 mg BID * A1c Pending; per physician note 6.3% in June 2020 ASSESSMENT: 08/10: * Blood sugars have been well controlled over the past 24 hours. Patient received a total of 18 units of insulin yesterday and was NPO until dinner. Will continue with current regimen. If patient does not meet criteria for evening dose of Lantus tonight, will consider moving to scheduled once daily dosing tomorrow. 08/08: * Patient coded this morning, was intubated and came to the ICU. Predictably, BSG post arrest was elevated likely due to this stress response. BSGs prior to this were very well controlled. Patient received 26 units of insulin yesterday. * Per discussion at ICU rounds, anticipate extubation and diet resumption today. * Will continue with current NovoLog and adjust lantus scale for this evening to be a bit more conservative due to NPO status 08/07 * BSGs well controlled over last 24 hrs * Fasting BSG 126 today with 10 units Lantus on board - will continue "low" dose, weight based Lantus * Post-prandial BSGs have been well controlled with current Novolog CF and CR - will continue the same and monitor post-prandial pattern 08/06 * CHARLETTE is admitted ICU post PCI for STEMI. He does have a history of type II diabetes. Would like tight glycemic control in STEMI setting. * Will begin Novolog weight based stress of 2 parameters and lantus scale for dinner. Overnight checks. * Will dose lantus with scale initially with dinner, additional may be ordered HS if BSGs elevated PLAN FOR INPATIENT GLYCEMIC CONTROL: * Hold outpatient oral diabetes medications (metformin) * Basal insulin * Lantus 10 units BID - hold if BSG less than 120 in the AM and less than 150 this evening * Bolus insulin * NovoLog per scale ACHS or Q6hrs while NPO * Goal Range: Low 110 mg/dL - High 140 mg/dL * Correction Factor: 20 mg/dL/unit * Nutritional / Prandial insulin per carb ratio of 1 unit per 7 grams CHO consumed PLAN FOR DISCHARGE: * given patient's A1c of 6.7%, he may resume metformin monotherapy on discharge if no contraindications to use are present
--- NOTE | 2020-08-10 14:23 | Electrocardiogram Report ---
Test Reason : Blood Pressure : / mmHG Vent. Rate : 075 BPM Atrial Rate : 075 BPM P-R Int : 170 ms QRS Dur : 112 ms QT Int : 436 ms P-R-T Axes : 019 046 005 degrees QTc Int : 486 ms Normal sinus rhythm Prolonged QT Abnormal ECG When compared with ECG of 08-AUG-2020 10:52, Minimal criteria for Inferior infarct are no longer Present Serial changes of evolving Anterior infarct Confirmed by Nils Ovalle ([id number]) on 08/10/2020 2:22:55 PM Referred By: REFERRED SELF Confirmed By:Nils Ovalle
--- NOTE | 2020-08-10 15:58 | Hospitalist Progress Note ---
Date of Service August 10, 2020 Assessment & Plan (1) Acute VT: ST elevation myocardial infarction (STEMI) of anterior wall This is a 70-year-old male who has significant past medical history of T2DM, HTN, HLD, arthritis who presented to ED secondary to chest pain while putting on a roof prior to arrival. EKG on admission showed sinus rhythm with resolution of the previously noted ST segment elevation, changes of old anterior, anterolateral VT noted wave inversions in the precordial leads. cardia cath was done with successful PCI to LAD and circumflex. 100% prox LAD occluded with PCI and 2 ZARA. 95% prox circumflex with PCI and 1 ZARA. Severe disease in non dominant RCA. Continue medical therapy to with dual antiplatelet therapy with aspirin and Brilinta Continue lisinopril, rosuvastatin and metoprolol clinically stable (2) Cardiac arrest: VF cardiac arrest in the setting of recent large anterolateral myocardial infarction. Emergent cardiac cath with successful PCI of distal LAD with single drug-eluting stent No evidence of stent complications or new occlusive disease leading to repeat ischemic event. S/P AICD placement on 08/09 with no post op complication. CXR showed no pneumothorax IV amiodarone discontinued and transition to PO amiodarone Will continue monitor in tele (3) JEMMA (acute kidney injury): Creatinine 1.2 today, baseline cr 1.0 Continue to hold metformin Continue monitor BMP (4) T2DM (type 2 diabetes mellitus): Most recent Hba1c 6.7 Continue to hold metformin lantus/novolog per protocol Pharmacy on board for glycemic management (5) Transaminitis: Mostly related to the code blue LFT continue trending down with AST 137 --> 66 and ALT 174--> 123 Continue monitor LFT (6) Hypertension: BP controlled continue lisinopril/metoprolol (7) Hypercholesterolemia: continue statin Total chol 108, LDL 49, Trig 82, HDL 45 Arthritis pt with b/l hand arthritis takes diclofenac as outpt, advised against in setting of CAD will trial topical diclofenac gel (8) DVT prophylaxis: Off integrilin infusion place on lovenox q24h Dispo: will transfer out of ICU PCP: Tomy FULL CODE Admission and Anticipated Discharge Date Admission Date: August 06, 2020 Subjective Pt was seen and examined for follow up post AICD placement Lying in bed with no distress Pt said that he had a good night H said that he feels fine He said that pain control Denies any chest pain, palpitation, dizziness and SOB Review of Systems Review of Systems: All systems reviewed & are unremarkable except as noted in Subjective Physical Exam Physical Exam: General- No acute distress Head- atraumatic Eyes- PERRL, EOMI, ENT- oropharynx clear Neck- supple, no JVD Lungs- clear to auscultation Heart- regular rhythm; no murmur Abdomen- normal bowel sounds, soft, nontender Extremities- no calf tenderness Neuro- alert, oriented; PERRL, EOMI; no facial palsy; no dysarthria Skin- warm & dry Results & Data Results & Data ([facility]) Vital Signs (Past 12 Hours) Vital Signs Temp Pulse Resp BP Pulse Ox 08/10/20 12:00 66 18 109/69 94 08/10/20 10:00 61 23 113/71 92 08/10/20 08:00 71 23 127/77 90 08/10/20 06:18 67 26 H 125/75 91 08/10/20 06:00 66 92 08/10/20 05:58 68 23 122/78 91 08/10/20 05:18 66 20 117/75 92 08/10/20 05:00 71 26 H 95 08/10/20 04:48 71 23 135/75 94 08/10/20 04:18 67 19 129/76 94 08/10/20 04:00 36.9 C 72 16 93
[2020-08-11] MEDS ORDERED: AMIODARONE 200 MG TAB PO SCH
[2020-08-11] MEDS ORDERED: TICAGRELOR 90 MG Homepack PO SCH
[2020-08-11 05:07] LABS: Albumin Level 3.1 gm/dl (3.4-5.0); Calcium 8.5 mg/dl (8.5-10.1); Creatinine Clr Calc Pharmacy 83.9 ml/min; Est GFR (African American) 89.5; Est GFR (Non-African American) 77.3; Potassium 3.8 mmol/L (3.5-5.1)
[2020-08-11 05:21] LABS: Albumin Globulin Ratio 0.8 (0.9-2); Bilirubin,Total 1.5 mg/dl (0.2-1); Globulin 3.9 gm/dl (2.5-4.0)
[2020-08-11] MEDS: traMADol HCL 50 MG TABLET PO PRN (07:16)
[2020-08-11] MEDS: TICAGRELOR 90 MG TAB PO SCH (08:14)
[2020-08-11] MEDS: ROSUVASTATIN CALCIUM 20 MG TAB PO SCH (08:14)
[2020-08-11] MEDS: ASPIRIN 81 MG ECTAB PO SCH (08:14)
[2020-08-11] MEDS: AMIODARONE 200 MG TAB PO SCH ×2 (08:14→12:34)
[2020-08-11] MEDS: DICLOFENAC SOD 1% GEL 100 GM TUBE EXT SCH ×2 (08:15→13:34)
[2020-08-11] MEDS: INSULIN ASPART 100 UNITS/ML 3 ML PEN SC SCH ×2 (08:15→12:35)
[2020-08-11] MEDS: METOPROLOL SUCC 50MG EXT REL TAB PO SCH (08:16)
[2020-08-11] MEDS: ENOXAPARIN INJ 40 MG/0.4 ML SYR SQ SCH (08:16)
[2020-08-11] MEDS ORDERED: INSULIN GLARGINE SOLOSTAR 100 UNITS/ML 3 ML PEN SC SCH (09:00)
--- NOTE | 2020-08-11 11:14 | Cardiology Progress Note ---
Date of Service August 11, 2020 Assessment & Plan (1) Cardiac arrest: s/p VF in hospital arrest. Successful resuscitation and ICD implantation 08/09/2020. Repeat cath 08/08 revealingpatent LAD, LCx stents, additional late mid / early distal LAD stenosis treated with PCI / ZARA. No recurrent ventricular tachycardia on telemetry over the past 24 hours. Continue amiodarone 200 mg 3 times daily with transition to 200 mg twice daily at discharge. (2) ST elevation myocardial infarction (STEMI) of anterior wall: Ischemic cardiomyopathy with ejection fraction of 35%. Presented 4/5 large anterior, anteroseptal, anterolateral, apical STEMI. S/P EMERGENT PCI with2 drug-eluting stents to the mid LAD, 1 drug-eluting stent to the mid circumflex. Patient was found to have 100% proximal LAD occlusion for which he underwent PCI. He then underwent PCI of the circumflex. While on table, recurrent EKG changes were then noted, and he was found to have a thrombotic occlusion of the LAD for which repeat intervention was performed and the patient was transferred to the intensive care unit on an Integrilin infusion. Severe residual disease in a small nondominant RCA noted. Continue ASA, Brilinta, Toprol, Lisinopril, Rosuvastatin. (3) Transaminitis: Likely due to hemodynamic insult post CODE BLUE. Continue amiodarone, rosuvastatin. LFTs trending down. (4) Hypertension: Blood pressure improved Continue Toprol, lisinopril. (5) Hypercholesterolemia: Continue rosuvastatn 20 mg daily. (6) Chest wall pain: From chest compressions. Not candidate for NSAIDS. Agree with Tramadol and Tylenol as needed.. Patient may be transferred to telemetry. Admission and Anticipated Discharge Date Admission Date: August 06, 2020 Subjective Patient seen and examined at the bedside. Feeling well from a cardiovascular perspective today. Denies chest pain or unusual shortness of breath. Notes mild discomfort with inspiration and cough. No palpitations or lightheadedness. Tolerating medications listed below. Renal function remained stable. Review of Systems Review of Systems: All systems reviewed & are unremarkable except as noted in Subjective Physical Exam Constitutional: well nourished; no acute distress Respiratory: no respiratory distress and no labored breathing Auscultation: lungs clear to auscultation bilaterally; no crackles, no rales, no rhonchi and no wheezes Cardiovascular: Rate/Rhythm: regular rate and regular rhythm Heart Sounds: normal S1 and normal S2; no murmur Vessels: no JVD Extremities: no edema Gastrointestinal (Abdomen): Inspection/Auscultation: normal bowel sounds; abdomen not distended and no abdominal edema Percussion/Palpation: abdomen soft; abdomen nontender, no guarding and abdomen not rigid Skin: no rashes, warm and dry Neurologic: CN's II-XI intact bilaterally and moves all extremities; no focal motor deficits Motor/Sensory: no tremor Psychiatric: A+Ox3, euthymic affect Results & Data ([facility]) Vital Signs (Past 12 Hours) Vital Signs Temp Pulse Pulse Resp BP BP Pulse Ox 08/11/20 08:00 36.8 C 63 74 20 138/79 96 08/11/20 03:38 36.6 C 63 20 149/83 H 96 08/11/20 00:00 63 08/10/20 23:26 37.0 C 66 19 130/73 95
[2020-08-11] MEDS: lisinopril 2.5 MG TAB PO SCH (12:34)
--- NOTE | 2020-08-11 14:22 | Operative Report (OR) ---
DATE OF OPERATION: 08/09/2020 PREOPERATIVE DIAGNOSES: Cardiac arrest and sinus bradycardia. POSTOPERATIVE DIAGNOSES: Cardiac arrest and sinus bradycardia. PROCEDURE: Dual chamber rate responsive implantable cardiac defibrillator under fluoroscopic guidance along with peripheral venogram. SURGEON: Corinne Thomas DO. ASSISTANTS: None. ANESTHESIA: Monitored conscious sedation administered under my supervision by Vianney Springer. Start time 1546, end time 1646, a total of 2 mg of Versed, 50 mcg of fentanyl. INTRAVENOUS FLUIDS: 30 mL ANTIBIOTICS: 600 mg of clindamycin. CONTRAST: 10 mL. BLOOD LOSS: 20 mL. URINE OUTPUT: Not applicable. SPECIMENS: None. FINDINGS: See below. DRAINS: None. INDICATIONS: This is a 70-year-old gentleman who presented to [facility] on 08/06/[address] elevation DC. He underwent cardiac catheterization with a PCI/drug-eluting stent to the LAD and circumflex. He also has a past medical history of hypertension, hyperlipidemia, AAA, rheumatoid arthritis and diabetes. On post-DC day 2 he suffered a cardiac arrest in the hospital VF. He was then sent back to the catheterization lab. The stents were patent. He did get an additional stent to the LAD, but it was thought that his cardiac arrest, was not due to acute thrombosis, so he was recommended a dual chamber defibrillator prior to discharge. CONSENT: Consent was obtained prior to the patient going into the electrophysiology lab. The patient was informed of the risks, benefits and alternative procedure. Risks include but not limited to sudden cardiac , cardiac arrhythmias, cerebrovascular accident, myocardial infarction, injury to the blood vessels, chamber of the heart, lung, bleeding, and infection. The patient understood these risks and agreed with procedure as planned. Informed consent was obtained. DESCRIPTION OF THE PROCEDURE: The patient was brought into the electrophysiology lab in fasting state. He was connected to continuous cardiac cath lab technologist. Timeout was performed to ensure patient identity and procedure correctly. He was prepped and draped over the left infraclavicular space in normal surgical standard fashion. Monitored conscious sedation was given throughout the procedure for patient's comfort level. [place] precautions maintained throughout the procedure. He received prophylactic antibiotics prior to incision. 10 mL of 1% lidocaine, bupivacaine mixture were given in the left deltopectoral groove. Incision was made in left deltopectoral groove. Blunt dissection performed down to try to identify the cephalic vein, it could not be identified, so peripheral venogram was performed. There was a cephalic vein, but I opted to do an axillary stick. Venous axillary access was obtained. I did hit the axillary artery once and compression was held. Venous access was obtained and a guidewire was inserted without any resistance. An 8-Irish sheath was inserted over the guidewire without any resistance. The second guidewire was inserted through the sheath to allow for retained venous access. Sheath was removed and a 9.5-Irish SafeSheath was advanced over one of the guidewires. Guidewire and dilator removed. The defibrillator lead was then advanced into the right ventricle and positioned into right ventricular apex under fluoroscopic guidance. I did have to reposition it one time. There was adequate pacing and sensing thresholds and no diaphragmatic stimulation in high output pacing. The 9.5-Irish sheath was peeled away and lead was fixated to pectoralis muscle using 0 silk suture. An 8-Irish sheath was then advanced over the retained guidewire without any resistance. Guidewire and dilator removed. The right atrial lead was advanced into right atrium, positioned into the right atrial appendage under fluoroscopic guidance using a preformed J curve. There was adequate pacing and sensing thresholds and no diaphragmatic stimulation with high output pacing. The 8-Irish sheath was peeled away and lead was fixated to pectoralis muscle using 0 silk suture. A defibrillator pocket was created using blunt dissection over the pectoralis muscle within the pectoralis fascia. The pocket was flushed with copious amounts of bacitracin saline wash and inspected for hemostasis. The defibrillator was attached to the leads making sure the pins were in appropriate position, passed set screw and set screws were all tightened. Defibrillator was then placed in the antibiotic pouch followed then by being placed in the pocket, making sure that the leads were lying flat beneath the device. The incision was closed in a 3-layer fashion with 2-0 Vicryl interrupted suture followed by 3-0 Vicryl interrupted suture, followed by 4-0 Monocryl running stitch and Dermabond was applied followed by a Telfa and micropore dressing. EQUIPMENT: 1. Pulse generator is a [employer] MRI XTDR SureScan [id number], serial number [id number]. 2. The Tyrx pouch, reference [id number], lot number [id number], expiration 04/08/2021. 3. Right atrial lead Medtronic 5076-52 cm, serial number [id number]. 4. Right ventricular lead, Medtronic 6935M-62 cm, serial [id number]. INTRAOPERATIVE TESTIN. Right atrial lead: P waves 1.2 millivolts, impedance 434 ohms, threshold 1.5 volts at 0.4 milliseconds. 2. Right ventricular lead: R waves 5 millivolts, impedance 680 ohms, threshold 0.5 volts at 0.4 milliseconds. FINAL MEASUREMENTS THROUGH THE DEVICE: 1. Right atrial lead: P waves 1.6 millivolts, impedance 399 ohms, threshold 0.75 volts at 0.4 milliseconds. 2. Left ventricular lead: R waves 5.5 millivolts, impedance 608 ohms, threshold 0.75 volts at 0.4 milliseconds. 3. RV coil 79 ohms. FINAL PARAMETERS: MVP-R 60/130, right atrial and right ventricular amplitude 3.5 volts, pulse width 0.4 milliseconds, sensitivity 0.3 millivolts. A VT monitor zone at 140 beats per minute for 20 detection intervals, VT zone at 162 beats per minute for 12 detection intervals and a VF zone at 200 beats per minute for 18/24 detection intervals. IMPRESSION: Successful dual chamber rate responsive implantable cardiac defibrillator implantation under fluoroscopic guidance along with peripheral venogram secondary to cardiac arrest and sinus bradycardia. PLAN: Monitor patient overnight, 12-lead ECG, chest x-ray. He cannot lift the left elbow or left shoulder for 1 month. He cannot lift more than 10 pounds with the left arm for 2 weeks. He is to keep the dressing on and dry until his wound check next week and we will defer p.o. amiodarone and other medications to general Cardiology. I attest to the content of the Intraoperative Record and any orders documented therein. Any exception s are noted below.
--- NOTE | 2020-08-11 14:41 | Discharge Summary ---
Date of Service August 11, 2020 Admission HPI Per Admitting Provider This is a 70-year-old male who has significant past medical history of T2DM, HTN, HLD, arthritis who presented to ED secondary to chest pain while putting on a roof prior to arrival. He developed substernal chest pain around 9:00 this morning while putting on a roof. Due to new onset of chest pain he opted to see PCP for further evaluation. In office EKG revealed new incomplete right bundle branch block with ST elevations anteriorly. He received ASA 324 mg, sublingual nitro and EMS was summoned. Patient was made heart alert on arrival and EKG still revealing signs of anterior STEMI. He underwent emergent cardiac catheterization and PCI. He was found to have a proximal LAD 100% occlusion requiring 2 stents and a 95% proximal circumflex occlusion requiring 1 stent. Post PCI he did develop recurrent ischemic EKG changes. Reevaluation revealed blood clots and stent and he underwent balloon angioplasty and continued on Integrilin. He is currently admitted to the ICU without chest pain. He currently denies any acute concerns. He denies fever, chills, sweats, lightheadedness, dizziness, chest pain, shortness with, palpitations, nausea, vomiting, abdominal pain. Prior to today's evaluation he denies any change in his bowel or urinary habits. He does have history of T2DM on Metformin. His last A1c was 6.3 in June 2020. 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 He does not smoke or use alcohol. He did smoke for 15 pack years approximately 25 years ago. He does have significant family history of cardiac disease in both parents as well as brother and sister. Admission Exam Per Admitting Provider Constitutional: WD/WN, vitals as above, NAD, sitting up in bed, pleasant, conversing easily Head: Normocephalic, Atraumatic Eyes: PERRL, conjunctivae normal, anicteric sclerae ENMT: external ear and nose normal, oropharynx normal Neck: trachea midline, no thyromegaly normal visual inspection Respiratory: normal respiratory effort, lungs clear to auscultation, no wheeze, rales, rhonchi. Normal insp/exp effort, no accessory muscle use Cardiovascular: RRR, no murmur, trace pretibial edema, radial band 2 RUE vessels: no JVD or carotid bruit Chest: normal inspection of chest Abdomen: normal bowel sounds, soft, nontender, no hepatosplenomegaly Musculoskeletal: no cyanosis or clubbing, extremities motor strength 5/5 Skin: no rashes, warm and dry normal turgor Neurologic: PERRL, EOMI, accommodation nl, no face palsy, no dysarthria CN's II-XI intact bilaterally and moves all extremities Psychiatric: A+Ox3, euthymic affect Lymphatic: no cervical or axillary lymphadenopathy : deferred Principal Diagnosis ST elevation myocardial infarction (STEMI) of anterior wall Cardiac arrest: JEMMA (acute kidney injury): T2DM (type 2 diabetes mellitus): Transaminitis: Hypertension: Hypercholesterolemia: Arthritis Discharge Exam General- No acute distress Head- atraumatic Eyes- PERRL, EOMI, ENT- oropharynx clear Neck- supple, no JVD Lungs- clear to auscultation Heart- regular rhythm; no murmur Abdomen- normal bowel sounds, soft, nontender Extremities- no calf tenderness Neuro- alert, oriented; PERRL, EOMI; no facial palsy; no dysarthria Skin- warm & dry Discharge Data Allergies Allergy/AdvReac Type Severity Reaction Status Date / Time Sulfa (Sulfonamide Allergy Unknown HIVES Unverified 02/23/20 23:00 Antibiotics) Penicillins AdvReac Mild NAUSEA, Unverified 02/23/20 23:00 VOMITING Consultations 08/06/20 14:21 Consult Cardiac Rehabilitation Routine 08/06/20 14:22 Consult Compensation And Benefits Analyst Routine 08/06/20 14:42 Consult Cardiology Routine 08/06/20 19:04 Consult Hospitalist Routine Procedures Performed Operation Date: 08/06/20 12:30 Actual Procedures p Aspiration/PCI w/ZARA for Stemi - Montana Reed MD s IVUS Coronary Single Vessel - Montana Reed MD s Cath, Left with Cors and Vent - Montana Reed MD s Cineradiography w/Routine Exam - Montana Reed MD s Drug Eluting Stent each ADDTL Vessel - Montana Reed MD Operation Date: 08/08/20 07:40 Actual Procedures s Cineradiography w/Routine Exam - Montana Reed MD p Cath, Right and Left Heart - Montana Reed MD s IVUS Coronary Single Vessel - Montana Reed MD s Drug Eluting Stent SGl Vessel - Montana Reed MD s Ultrasound Vascular Access - Montana Reed MD Operation Date: 08/09/20 15:00 Actual Procedures p ICD Insertion Single or Dual - Corinne Thomas DO s Venogram, Unilateral - Corinne Thomas DO Ordered Studies 08/06/20 12:03 CL Cath Imgs for PACS use only Stat 08/06/20 14:24 CL IVUS Coronary Single Vessel Routine 08/08/20 07:38 CL Cath Imgs for PACS use only Stat 08/09/20 15:41 CL Cath Imgs for PACS use only Routine XR chest 2V PA/lateral HISTORY: 70 years-old Male s/p icd status post placement of a left subclavian pacer COMPARISON: Chest radiograph 08/08/2020 TECHNIQUE: PA and lateral views of the chest FINDINGS: Left subclavian pacer/AICD. Cardiomegaly. No pneumothorax. Blunting of the costophrenic angles suggestive of trace pleural effusions. There is improved aeration of the lungs with decreased pulmonary vascular congestion. Mild basilar densities. Degenerative changes of the shoulders and spine. IMPRESSION: 1. Status post placement of a left subclavian pacer/AICD. No pneumothorax. 2. Improved aeration of the lungs with minimal bibasilar densities favoring atelectasis. 3. Trace pleural effusions. ACT 112: Negative or not required by law. The above report was generated using voice recognition software. It may contain grammatical, syntax or spelling errors. Electronically signed by: Jorge Miranda M.D. 08/10/2020 6:49 AM Dictated: 08/10/20 0647Transcribed: 08/10/20 0647 XR chest 1V portable CLINICAL HISTORY: Respiratory failure COMPARISON STUDY: April 2012 FINDINGS: r there is an endotracheal tube 4 cm above the masoud. The heart is borderline enlarged. There is mediastinal widening.[Gas projected over the right heart border, likely represents visualization of lung through the heart border or summation with bowel. This finding was reviewed with a fellow radiologist. It was decided that intracardiac gas is unlikely. There are increased interstitial markings in the left perihilar region, likely representing mild edema although an infectious/inflammatory process could appear similar. IMPRESSION: 1. Endotracheal tube 4 cm above the masoud 2. Left perihilar opacities, likely representing focal edema although an infectious/inflammatory processes could appear similar 3. Somewhat unusual appearance of the lower right heart border, likely secondary to visualization of the lung and/or bowel gas through the heart border. ACT 112: Negative or not required by law. Electronically signed by: Maurice Brown M.D. 08/08/2020 7:33 AM Dictated: 08/08/20727Transcribed: 08/08/20727 Hospital Course (1) Acute OR: ST elevation myocardial infarction (STEMI) of anterior wall This is a 70-year-old male who has significant past medical history of T2DM, HTN, HLD, arthritis who presented to ED secondary to chest pain while putting on a roof prior to arrival. EKG on admission showed sinus rhythm with resolution of the previously noted ST segment elevation, changes of old anterior, anterolateral OR noted wave inversions in the precordial leads. cardia cath was done with successful PCI to LAD and circumflex. 100% prox LAD occluded with PCI and 2 ZARA. 95% prox circumflex with PCI and 1 ZARA. Severe disease in non dominant RCA. Continue medical therapy to with dual antiplatelet therapy with aspirin and Brilinta Continue lisinopril, rosuvastatin and metoprolol clinically stable (2) Cardiac arrest: VF cardiac arrest in the setting of recent large anterolateral myocardial infarction. Emergent cardiac cath with successful PCI of distal LAD with single drug-eluting stent No evidence of stent complications or new occlusive disease leading to repeat ischemic event. S/P AICD placement on 08/09 with no post op complication. CXR showed no pneumothorax IV amiodarone discontinued and transition to PO amiodarone Will continue monitor in tele (3) JEMMA (acute kidney injury): Creatinine 1.2 today, baseline cr 1.0 Continue to hold metformin Continue monitor BMP (4) T2DM (type 2 diabetes mellitus): Most recent Hba1c 6.7 Continue to hold metformin lantus/novolog per protocol Pharmacy on board for glycemic management (5) Transaminitis: Mostly related to the code blue LFT continue trending down with AST 137 --> 66 and ALT 174--> 123 Continue monitor LFT (6) Hypertension: BP controlled continue lisinopril/metoprolol (7) Hypercholesterolemia: continue statin Total chol 108, LDL 49, Trig 82, HDL 45 Arthritis pt with b/l hand arthritis takes diclofenac as outpt, advised against in setting of CAD will trial topical diclofenac gel (8) DVT prophylaxis: Off integrilin infusion place on lovenox q24h Dispo: will transfer out of ICU PCP: Tomy FULL CODE Total Time Total Time Spent Total Time Spent (In Minutes): 35 minutes Total Time Includes: Examination of the Patient, Discharge Planning, Medication Reconciliation, Communication With Other Providers and Other Discharge Plan Discharge Items Patient Disposition: Home - Self-Care Reason For Visit: Chest Pain/Heart Alert Discharge Diagnosis: ST elevation myocardial infarction (STEMI) of anterior wall Cardiac arrest: JEMMA (acute kidney injury): T2DM (type 2 diabetes mellitus): Transaminitis: Hypertension: Hypercholesterolemia: Arthritis Activity: As commented below Activity Comment: do not raise the left elbow over the left shoulder for 1 month Lifting: No more than 10 pounds Lifting Comment: do not lift more than 10 pounds with the left arm for 2 weeks Bathing: Keep incision dry Bathing Comment: keep dressing on and dry until wound check next week; sponge bath around Sexual Activity: After two weeks Non-emergency contact: Primary Care Provider and [employer] Call non-emergency contact if: you have any medication questions and your temperature is above 101 Follow-up/Referrals: Mario Huitron MD [Primary Care Provider] - 08/17/20 11:00 am Diet: Carb Consistent or DM2 and Heart Healthy Addtl Attending Provider Instructions: Follow up with your primary care provider Dr. Huitron on 08/17 @ 11AM with Dr. Hector Follow up with cardiology within 1 week (office will call you for the regan ointment) AICD Device and wound check at [facility] next week Continue dual antiplatelet therapy with aspirin and Brilinta Your provider will refer you for cardiac rehab Fall precaution Avoid any NSAIDS (such as motrin, aleve, naproxen, Advil, Ibuprofen, ...) while on dual antiplatelet therapy due to increase risk of bleeding Ok to take Tylenol as needed for pain Continue Amiodarone 200mg three times daily for 5 days, then reduce to twice a day Check CMP in 1-2 weeks to monitor your liver enzymes and electrolytes (Your provider will order it) Keep the area for the cardiac cath clean and dry to avoid any infection Do not use creams, lotions or ointment on the wound site Do not take a bath, tub soak, go in a Jacuzzi, or swim in a pool or daly for one week after the procedure. Do not participate in strenuous activities for 3 days after the procedure. Gradually increase your activities until you reach your normal activity level within two days after the procedure. Don't drive until your doctor says it's OK. Do not lift the left elbow over the left shoulder for 1 month Do not lift no more than 10 lbs in the left arm for 2 week Do not stretch your arm behind your back for as long as directed by your doctor. Keep incision area clean and dry Check your incision area for signs of infection (redness, swelling, drainage, or warmth). Pending Studies at Discharge: No Stand-Alone Forms: [facility] [employer], Smoking Cessation Medications and DC Order Prescriptions: New Brilinta 90 mg Tablet 90 mg PO BID Qty: 60 RF: 0 amiodarone 200 mg Tablet 200 mg PO TIDM Qty: 60 RF: 0 lisinopril 2.5 mg Tablet 2.5 mg PO QAM Qty: 30 RF: 0 metoprolol succinate 50 mg Tablet Extended Release 24 Hr 50 mg PO QAM Qty: 30 RF: 0 rosuvastatin [Crestor] 20 mg Tablet 20 mg PO QAM Qty: 30 RF: 0 aspirin 81 mg Tablet,Delayed Release (Dr/Ec) 81 mg PO QAM Qty: 30 RF: 0 Continued metformin 500 mg tablet extended release 24 hr 1,000 mg PO BID RF: 0 cyanocobalamin (vitamin B-12) 1,000 mcg Capsule 1,000 mcg PO DAILY RF: 0 Discontinued diclofenac sodium 75 mg tablet,delayed release (DR/EC) 75 mg PO BID RF: 0 lisinopril 10 mg tablet 10 mg PO DAILY RF: 0 rosuvastatin 5 mg tablet 5 mg PO DAILY RF: 0 Discharge Orders: Discharge Order (Routine); Ordered 08/11/20 Ordered By: Eleazar Du/Other Patient Handouts: Managing Type 2 Diabetes, Managing Diabetes: The A1C Test, Ticagrelor oral tablet, Metoprolol tablets, Rosuvastatin Tablets, Amiodarone tablets, Lisinopril tablets Admission Data Admit Date/Time: 08/06/20 14:22 Attending Provider: Eleazar Shipman Admit Provider: Montana Reed Primary Care Provider: Mario Huitron Other Providers: Beltran Britton ; Dmitry John ; Yobany Daniels Other Interventions: Discharge Summary Assessment (RN) Last Done: 08/11/20 15:15
== END 2020-08-11 16:22 | disposition home or self-care (01) | DRG 222 ==
LOC: ED 12:12 → CC 12:25 → SUATTDRO 14:22 → 1E 14:22 → 2S 08-07 10:49 → 1E 08-08 07:22
PROC: EPB.ICD (2020-08-09 15:00)

== ENCOUNTER 2024-05-11 06:16 | Inpatient (IN) ==
--- NOTE | 2024-04-14 13:57 | PAT Medication Instructions ---
Medication Instructions Date of Service April 14, 2024 Home Medications Medication Instructions Recorded aspirin 81 mg tablet,delayed 81 mg PO QAM #30 tabs 08/11/20 release metoprolol succinate 50 mg 50 mg PO QAM #30 tabs 08/11/20 tablet,extended release 24 hr metformin 500 mg tablet,extended release 24 hr 500 mg PO BID cyanocobalamin (vitamin B-12) 1,000 mcg capsule 1,000 mcg PO Q2D aspirin 81 mg tablet,delayed release 81 mg PO QAM metoprolol succinate 50 mg tablet,extended release 24 hr 50 mg PO QAM Realtime Pain Relief 1 dose topical DAILY PRN wrist pain albuterol sulfate 90 mcg/actuation aerosol inhaler 1 inh inhalation QID PRN sob apixaban 5 mg tablet 5 mg PO BID famotidine 20 mg tablet 20 mg PO QAM nitroglycerin 0.4 mg sublingual tablet 0.4 mg sublingual UD PRN Chest Pain rosuvastatin 40 mg tablet 20 mg PO HS Continue as directed nitroglycerin 0.4 mg sublingual tablet 0.4 mg sublingual UD PRN Chest Pain (if needed) ASK your prescriber and surgeon aspirin 81 mg tablet,delayed release 81 mg PO QAM apixaban 5 mg tablet 5 mg PO BID (in order to get spinal anesthesia- will need to hold Eliquis/apixaban at least 72 hours prior to surgery) STOP taking 24 hours before surgery Realtime Pain Relief 1 dose topical DAILY PRN wrist pain DO NOT take the morning of surgery metformin 500 mg tablet,extended release 24 hr 500 mg PO BID cyanocobalamin (vitamin B-12) 1,000 mcg capsule 1,000 mcg PO Q2D Take morning of surgery With a small sip of water, OTHERWISE NOTHING TO EAT OR DRINK AFTER MIDNIGHT: metoprolol succinate 50 mg tablet,extended release 24 hr 50 mg PO QAM albuterol sulfate 90 mcg/actuation aerosol inhaler 1 inh inhalation QID PRN sob (use if needed; please bring with you to hospital day of surgery if possible) famotidine 20 mg tablet 20 mg PO QAM Take evening before surgery metformin 500 mg tablet,extended release 24 hr 500 mg PO BID albuterol sulfate 90 mcg/actuation aerosol inhaler 1 inh inhalation QID PRN sob (if needed) rosuvastatin 40 mg tablet 20 mg PO HS Other Notes If you have any questions please call us at [phone] or [phone] or [phone] or [phone]
--- NOTE | 2024-04-20 15:09 | Anesthesiology Consultation ---
Date of Service April 20, 2024 Assessment & Plan (1) Encounter for pre-operative examination: Plan - will request most recent ICD report from [facility]. - Medtronic ICD. - cardiology pre-operative evaluation 04/19/24 [facility]: "...right TKA...EKG obtained and demonstrates no changes when compared with prior. Per Yvan criteria, patient was counseled that he would be placed at moderate risk for any adverse perioperative cardiovascular events associated with right knee orthopedic surgery...no other cardiac testing or interventions would further lower that risk...may hold his Eliquis 2 days prior to the surgery date...recent device interrogation demonstrates normal function...AAA...repeat scan tomorrow for surveillance..." - Outpatient joint assessment: Patient is currently scheduled for inpatient pathway. If re-evaluated and patient/surgeon requests outpatient pathway, patient is not acceptable candidate for outpatient joint program from anesthesia standpoint. Chart Review Chart Review: Pending: Refer to Additional Notes / Consult section and Patient seen in Pre Admission Testing Teaching & Discussion Pre-Anesthesia Teaching/Discussion Notes: Instructed NPO after midnight before surgery, except medications with 15 cc of water. Medication instructions provided according to the PAT guidelines. History Surgery Operation Date: 05/11/24 11:55 Proposed Procedures p Right Total Knee Arthroplasty - Aric Kumar MD Height/Weight Height: 5 ft 10.5 in Weight: 114.5 kg Allergies Allergy/AdvReac Type Severity Reaction Status Date / Time hyaluronic acid Allergy Severe Severe Verified 04/15/24 14:23 knee swelling (with knee injection) diclofenac Allergy Intermediate Rash (with Verified 04/15/24 14:23 voltaren gel) Sulfa (Sulfonamide Allergy Intermediate Hives Verified 04/15/24 14:23 Antibiotics) amoxicillin AdvReac Mild Nausea, Verified 04/15/24 14:23 vomiting Penicillins AdvReac Mild Nausea, Verified 04/15/24 14:23 vomiting Medications Home Medications Medication Instructions Recorded Confirmed Last Taken metformin 500 mg tablet,extended 500 mg PO BID 02/23/20 04/14/24 Unknown release 24 hr cyanocobalamin (vitamin B-12) 1,000 mcg PO Q2D 08/06/20 04/14/24 Unknown 1,000 mcg capsule aspirin 81 mg tablet,delayed 81 mg PO QAM #30 tabs 08/11/20 04/14/24 Unknown release metoprolol succinate 50 mg 50 mg PO QAM #30 tabs 08/11/20 04/14/24 Unknown tablet,extended release 24 hr Realtime Pain Relief 1 dose topical DAILY PRN wrist pain 04/14/24 Unknown albuterol sulfate 90 mcg/actuation 1 inh inhalation QID PRN sob 04/14/24 04/14/24 Unknown aerosol inhaler apixaban 5 mg tablet 5 mg PO BID 04/14/24 04/14/24 Unknown famotidine 20 mg tablet 20 mg PO QAM 04/14/24 04/14/24 Unknown nitroglycerin 0.4 mg sublingual 0.4 mg sublingual UD PRN Chest Pain 04/14/24 04/14/24 Unknown tablet rosuvastatin 40 mg tablet 20 mg PO HS 04/14/24 04/14/24 Unknown Past Medical History Medical History (Updated 04/20/24 @ 15:35 by Garima Sherman PA-C) AAA (abdominal aortic aneurysm) [facility] cardio records: "AAA, 3.1 cm per duplex 04/2023" Follows with [facility] vascular, one year f/u per 05/2023 visit Aortic root enlargement [facility] cardio records: "Enlarged aortic root and ascending aorta, 4.3 cm/4.2 cm respectively per echo 04/2023" Arthritis Ascending aorta enlargement [facility] cardio records: "Enlarged aortic root and ascending aorta, 4.3 cm/4.2 cm respectively per echo 04/2023" CAD (coronary artery disease) Stents x4 (2020) Dyslipidemia GERD (gastroesophageal reflux disease) Per records, patient denies Takes famotidine daily History of skin cancer s/p cryotherapy treatments History of ST elevation myocardial infarction (STEMI) (08/2020) History of stroke during the cardiac arrest?? pt unsure. 08/2020 -> affected the right eye (had a blood clot in the " center of the eye") - limited eye sight HTN (hypertension) controlled, stable per pt Hx of cardiac arrest V.Fib after STEMI/stent placement (2020), successful defib, CPR and medical therapy Hypercholesterolemia ICD (implantable cardioverter-defibrillator) in place Medtronic ICD/Pacemaker implanted 2020, follows with [facility] cardio Obesity Paroxysmal A-fib on Eliquis Rheumatoid arthritis T2DM (type 2 diabetes mellitus) NIDDM Patient denies h/o seizures, heart failure, or blood transfusions. Exercise / Class Metabolic Activity II 4-5 Yardwork/Stairs/Walk up hill (denies chest discomfort or shortness of breath with one flight of stairs) Past Family History Family History Father Myocardial infarction, Onset Age: 63 Mother , 78 Myocardial infarction Diabetes Brother Myocardial infarction, Onset Age: 53 Sister Myocardial infarction, Onset Age: 63 Coronary heart disease Past Surgical History Surgical History History of cardiac cath (08/2020) History of colonoscopy History of heart artery stent (08/2020) Stents x4 S/P ICD (internal cardiac defibrillator) procedure (08/2020) ICD/Pacemaker S/P rotator cuff repair R/L Stented coronary artery ZARA x2 LAD, ZARA x1 pCx, ZARA x1 late mid to early LAD Past Anesthesia History Other (slow to wake) History of PONV No Hx of PONV and No Hx of Motion Sickness Social History Smoking Status: Former smoker Do You Dip or Chew Tobacco: No Smoking End Date: ~1989 Hx Alcohol Use: No Hx Substance Use: No substance use type: does not use Review of Systems Snoring, denies witnessed apneas. Patient denies chest pain, shortness of breath, dyspnea on exertion, fever, chills, cough, wheezing, or palpitations. Physical Exam Vital Signs Vitals BP 128/81 P 66 TEMP 97.7 SP02 94% on RA RESP 19 Physical Patient resting comfortably in chair in no acute distress, alert and oriented, responding appropriately throughout visit Full cervical extension range of motion without pain TMD 3.5 finger breadths Mallampati Score 3 Dentition: intact, denies chipped or loose teeth, caps/crowns, implants or bridges Lungs: normal respiratory effort. Good air movement, clear throughout to auscultation, no adventitious breath sounds Cardiac: regular rate and rhythm, no murmurs noted Carotid arteries: negative bruit bilat Lab Results Anesthesia Preop Results Results Anesthesia Widget: WBC 6.22 K/ul (4.8-10.8) 04/20/24 Hgb 15.3 g/dl (14.0-18.0) 04/20/24 Hct 45.2 % (42.0-52.0) 04/20/24 Plt 194 K/uL (130-400) 04/20/24 Na 137 mmol/L (136-145) 04/20/24 K 4.3 mmol/L (3.5-5.1) 04/20/24 Cl 106 mmol/L (98-107) 04/20/24 CO2 24 mmol/L (21-32) 04/20/24 BUN 22 mg/dl (6-23) 04/20/24 Creat 0.88 mg/dl (0.6-1.4) 04/20/24 Glucose Level 122 mg/dl (70-99(Fasting)) H 04/20/24 PT 11.1 Seconds (9.0-12.0) 04/20/24 PTT 30 Seconds (21-31) 04/20/24 INR 1.0 (0.9-1.1) 04/20/24 HA1c 7.5 % (4.5-5.6) H 04/20/24 Blood Type A Positive 04/20/24 Antibody Screen NEGATIVE 04/20/24 Testing Electrocardiogram Date: 04/19/24 NSR, rate 67 bpm Left axis deviation RBBB Inferior infarct, age undetermined Cleared by [facility] cardiology same day Chest X-Ray Date: 04/20/24 Minimal scarring in the left lung base. Otherwise unchanged. Echocardiogram Date: 04/15/24 EF 50-54% Normal LV wall motion Mild cLVH Moderate sized inferior and posterior wall motion abnormality with hypokinesis of the segments Moderately enlarged LA Mildly enlarged aortic root 4.3 cm Mildly enlarged ascending aorta 4.2 cm Grade I diastolic dysfunction No significant change vs 04/07/2023 echo Cardiac Catheterization Date: 08/06/20 1. Anterior STEMI/100% acute proximal LAD occlusion 2. Severe multi-vessel non-culprit coronary artery disease -95% proximal circumflex 95% proximal RCA, 100% mid RCA chronic occlusion. Distal RCA fills via left to right, right to right collaterals 3. Elevated intracardiac filling pressure 4. Successful PCI of proximal to mid LAD with 2 overlapping drug-eluting stents (3.5 x 30, 3.0 x 12 T[place]anda; postdilated with 3.75 NC)Recurrent LAD in-stent thrombus requiring Integrilin and repeat stent post-dilation 5. PCI of proximal to mid circumflex with single drug-eluting stent (2.75 x 15 mm [place]; postdilated with 3.0 NC with residual mild to moderate stenosis). Cervical Spine Date: 04/20/24 C3-C4 and C5-C6 discogenic disease. No acute fracture or malalignment. No change in alignment on the flexion or extension view.
--- NOTE | 2024-05-10 18:13 | History & Physical Report ---
Date of Service May 10, 2024 Assessment & Plan (1) Osteoarthritis of right knee: Plan: End-stage osteoarthritis lateral compartment right knee. Adverse reaction to viscosupplement injection. Patient had extensive conservative management and best plan is to proceed with total knee replacement right knee. Osteoarthritis type: primary Qualified Code(s): M17.11 - Unilateral primary osteoarthritis, right knee History of Present Illness Chief Complaint: Chronic right knee pain Primary Care Provider: Mario Huitron MD 74-year-old male with chronic right knee pain failed conservative management. Patient denies headaches, sweats, fevers, chills, double vision, blurred vision, cough, sore throat, dysphagia, chest pain, sob at rest, wheezing, n/v/d/c, numbness, tingling, fatigue, urinary symptoms, mood disorders. ROS positive for chronic cough, pacemaker defibrillator, short of breath running short distance walking up a hill or climbing a flight of stairs. Generalized osteoarthritis. Difficulty waking up from anesthesia. Allergies Allergy/AdvReac Type Severity Reaction Status Date / Time hyaluronic acid Allergy Severe Severe Verified 04/15/24 14:23 knee swelling (with knee injection) diclofenac Allergy Intermediate Rash (with Verified 04/15/24 14:23 voltaren gel) Sulfa (Sulfonamide Allergy Intermediate Hives Verified 04/15/24 14:23 Antibiotics) amoxicillin AdvReac Mild Nausea, Verified 04/15/24 14:23 vomiting Penicillins AdvReac Mild Nausea, Verified 04/15/24 14:23 vomiting Home Medications Medication Instructions Recorded Confirmed Type metformin 500 mg tablet,extended 500 mg PO BID 02/23/20 04/14/24 History release 24 hr cyanocobalamin (vitamin B-12) 1,000 mcg PO Q2D 08/06/20 04/14/24 History 1,000 mcg capsule aspirin 81 mg tablet,delayed 81 mg PO QAM #30 tabs 08/11/20 04/14/24 Rx release metoprolol succinate 50 mg 50 mg PO QAM #30 tabs 08/11/20 04/14/24 Rx tablet,extended release 24 hr Realtime Pain Relief 1 dose topical DAILY PRN wrist pain 04/14/24 History albuterol sulfate 90 mcg/actuation 1 inh inhalation QID PRN sob 04/14/24 04/14/24 History aerosol inhaler apixaban 5 mg tablet 5 mg PO BID 04/14/24 04/14/24 History famotidine 20 mg tablet 20 mg PO QAM 04/14/24 04/14/24 History nitroglycerin 0.4 mg sublingual 0.4 mg sublingual UD PRN Chest Pain 04/14/24 04/14/24 History tablet rosuvastatin 40 mg tablet 20 mg PO HS 04/14/24 04/14/24 History Past Med/Surg History Problem List (Updated 05/10/24 @ 18:12 by Aric Kumar MD) Osteoarthritis of right knee Encounter for pre-operative examination Medical History Ascending aorta enlargement [facility] cardio records: "Enlarged aortic root and ascending aorta, 4.3 cm/4.2 cm respectively per echo 04/2023" Aortic root enlargement [facility] cardio records: "Enlarged aortic root and ascending aorta, 4.3 cm/4.2 cm respectively per echo 04/2023" Paroxysmal A-fib on Eliquis Obesity CAD (coronary artery disease) Stents x4 (2020) Arthritis GERD (gastroesophageal reflux disease) Per records, patient denies Takes famotidine daily History of skin cancer s/p cryotherapy treatments History of stroke during the cardiac arrest?? pt unsure. 08/2020 -> affected the right eye (had a blood clot in the " center of the eye") - limited eye sight History of ST elevation myocardial infarction (STEMI) (08/2020) Hx of cardiac arrest V.Fib after STEMI/stent placement (2020), successful defib, CPR and medical therapy Dyslipidemia HTN (hypertension) controlled, stable per pt ICD (implantable cardioverter-defibrillator) in place Medtronic ICD/Pacemaker implanted 2020, follows with [facility] cardio AAA (abdominal aortic aneurysm) [facility] cardio records: "AAA, 3.1 cm per duplex 04/2023" Follows with [facility] vascular, one year f/u per 05/2023 visit T2DM (type 2 diabetes mellitus) NIDDM Hypercholesterolemia Rheumatoid arthritis Surgical History S/P ICD (internal cardiac defibrillator) procedure (08/2020) ICD/Pacemaker History of heart artery stent (08/2020) Stents x4 History of cardiac cath (08/2020) Stented coronary artery ZARA x2 LAD, ZARA x1 pCx, ZARA x1 late mid to early LAD History of colonoscopy S/P rotator cuff repair R/L Family History Father Myocardial infarction, Onset Age: 63 Mother , 78 Myocardial infarction Diabetes Brother Myocardial infarction, Onset Age: 53 Sister Myocardial infarction, Onset Age: 63 Coronary heart disease Social History Smoking Status: Former smoker Tobacco Type: Cigarettes packs per day: 1; Smoking End Date: ~1989; Second Hand Exposure: No; Do You Dip or Chew Tobacco: No; Tobacco Cessation Education Requested by Patient: No Hx Alcohol Use: No Hx Substance Use: No Preferred Language: Bulgarian Communication Ability: Effective Puppy Trainer Required: No Beliefs That Will Affect Care: None marital status: Current Living Situation: Spouse current occupational status: employed current occupation: [employer] Other Information That Helps Us Care for You: No Feels Safe at Home: Yes Safety Concerns: Feels Safe At This Time Assistive Devices: Glasses and Hearing Aid - Bilateral Review of Systems All systems reviewed & are unremarkable except as noted in HPI & below Physical Exam Constitutional: WD/WN, vitals as above Respiratory: normal respiratory effort; no respiratory distress Cardiovascular: Rate/Rhythm: regular rate and regular rhythm Musculoskeletal: Antalgic gait with valgus knee mild valgus alignment with mild effusion mild swelling with mild patellofemoral crepitation with no instability and 0 through 135 degrees range of motion normal distal circulation sensorimotor exam. Lateral joint line tenderness and pain weightbearing pain lateral knee. Skin: no rashes, warm and dry Neurologic: normal touch/pain/proprioception Psychiatric: A+Ox3, euthymic affect Results & Data Diagnostic Findings Advanced lateral compartment osteoarthritis right knee
[2024-05-11] MEDS ORDERED: EPINEPHrine INJ 1 MG/ML AMP ONE (06:28)
[2024-05-11] MEDS ORDERED: ROPIVACAINE 0.5% 5 MG/ML 30 ML VIAL ONE (06:29)
[2024-05-11] MEDS ORDERED: BUPIVACAINE 0.5 % 5 MG/1 ML PF 10ML VIAL ONE (06:29)
[2024-05-11] MEDS ORDERED: ONDANSETRON INJ 2 MG/ML 2 ML VIAL ONE (06:33)
[2024-05-11] MEDS ORDERED: MIDAZOLAM HCL 1 MG/ML 2ML VIAL ONE (06:33)
[2024-05-11] MEDS ORDERED: DEXAMETHASONE SOD INJ 4 MG/ML VIAL ONE (06:33)
[2024-05-11] MEDS ORDERED: PROPOFOL IV EMULSION 10 MG/ML 20 ML VIAL IV ONE ×5 (06:33→11:39)
[2024-05-11] MEDS ORDERED: fentaNYL citrate PF 100 MCG/2 ML VIAL ONE (06:33)
[2024-05-11] MEDS ORDERED: GLYCOPYRROLATE 0.2 MG/ML VIAL ONE (06:33)
[2024-05-11] MEDS ORDERED: LIDOCAINE 2% 2 ML VIAL/AMP(20MG/ML) INFIL ONE (06:33)
[2024-05-11] MEDS: VANCOMYCIN HCL 1,750 MG in SODIUM CHLORIDE 0.9% 500 ML IV SCH ×2 (06:54→22:51)
[2024-05-11] MEDS: LR 500ML BOLUS, THEN 15ML/HR IV SCH (06:55)
--- NOTE | 2024-05-11 07:09 | History & Physical Bridge Note ---
Date of Service May 11, 2024 History & Physical Bridge Note I have examined the patient, reviewed the History & Physical and in the interval since the performance of the History & Physical I have noted the following changes of clinical significance: no changes noted
[2024-05-11] MEDS: ACETAMINOPHEN 500 MG TAB PO SCH ×2 (07:19→21:17)
[2024-05-11] MEDS: METOCLOPRAMIDE HCL 10 MG TABLET PO SCH (07:20)
[2024-05-11] MEDS: LR 60ML/HR IV SCH (07:20)
[2024-05-11] MEDS: GABAPENTIN 300 MG CAP PO SCH (07:20)
[2024-05-11] MEDS: FAMOTIDINE 20 MG TAB PO SCH (07:20)
[2024-05-11] MEDS: TRANEXAMIC ACID 1,000 MG **IV Pre-op IV SCH (09:46)
--- OUTSIDE RECORDS SUMMARY | 2024-05-11 09:47 | External Medical Summary | Summary of Care ---
Author Name Unknown Organization [facility] Address [address] [place] [address] Phone [phone] Care Team Providers Care Ranch Cook Name Role Phone Mario Huitron MD Primary Care Provider [phone] Reason for Visit * Reason Comments Follow Up Patient is here toda y for a follow up. Patient also has ongoing issues with right knee, currently seeing orthopedics was scheduled knee replacement. Encounter Details Date Type Department Care Team (Late st Contact Info) Description 05/06/2024 8:20 AM EST Office Visit [facility] [address] [place] [address] Mario Huitron MD [address] [place] [address] Primary osteoarthritis of right knee*; DM type 2, goal HbA1c < 7.5% ([facility]); History of DC (myocardial infarction); History of cardiac arrest Allergies Active Allergy Reactions Criticality Noted Date Comments Amoxicillin 10/18/2009 nauseated Calcipotriene 04/28/2023 Diclofenac Sodium 09/16/2023 Methylprednisolone 08/17/2023 Pain and swelling in knee from injection Penicillins 01/11/2002 rash 6 days after starting ABX Sodium Hyaluronate (Erik) Edema Other 09/16/19 24 Sulfa Antibiotics 01/11/2002 rash 3 days after starting ABX Diclofenac 06/25/2021 rash documented as of this encounter (statuses as of 05/06/2024) Medications Aspirin 81 MG Oral Tablet Chewable 1 Tablet. Active Blood Glucose Monitor System w/Device KitIndications:DM type 2, goal HbA1c < 7.5% ([facility]) Check glucose twice daily 1 Kit 1 022 Active OneTouch UltraSoft LancetsIndication s:DM type 2, goal HbA1c < 7.5% ([facility]) Twice daily 60 Each 11 022 Active B-12 1000 MCG Oral CapsuleIndication s:B12 deficiency 1 cap every other day 30 Capsule 5 023 Active OneTouch Ultra In Vitro Strip (Glucose Blood)Indications :DM type 2, goal HbA1c < 7.5% ([facility]) TEST BLOOD SUGAR TWICE DAILY 100 Strip 11 023 Active Metoprolol Succinate ER 50 MG Oral Tablet Extended Release 24 Hour (toPROL XL)Indications:Co ronary artery disease involving [place] coronary artery of [place] heart without angina pectoris,Other hyperlipidemia,HT N, goal below 130/80,Ischemic cardiomyopathy TAKE 1 TABLET BY MOUTH ONCE DAILY IN THE MORNING 90 Tablet 024 Active Rosuvastatin Calcium 20 MG Oral Tablet (Crestor)Indicati ons:Coronary artery disease involving [place] coronary artery of [place] heart without angina pectoris,Other hyperlipidemia TAKE 1 TABLET BY MOUTH ONCE DAILY IN THE MORNING 90 Tablet 024 Active Nitroglycerin 0.4 MG Sublingual Tablet Sublingual (Nitrostat)Indica tions:Coronary artery disease involving [place] coronary artery of [place] heart without angina pectoris DISSOLVE 1 TABLET UNDER THE TONGUE EVERY 5 MINUTES NEEDED FOR CHEST PAIN. DO NOT EXCEED A TOTAL OF 3 DOSES IN 15 MINUTES. 25 Tablet Active Additional Information Patient not taking.Reported on 05/06/2024 Levalbuterol Tartrate 45 MCG/ACT Inhalation Aerosol (Xopenex HFA) Inhale 1 Puff by mouth every 4 hours as needed for Wheezing. 15 g 7 024 Active Apixaban 5 MG Oral Tablet (Eliquis)Indicati ons:PAF (paroxysmal atrial fibrillation) ([facility]) Take 1 Tablet by mouth in the morning and 1 Tablet before bedtime. 180 Tablet 3 024 Active Famotidine 20 MG Oral Tablet (Pepcid)Indicatio ns:Persistent dry cough,Gastroesoph ageal reflux disease, unspecified whether esophagitis present Take 1 Tablet by mouth in the morning and 1 Tablet before bedtime. 30 Tablet 11 024 Active Albuterol Sulfate HFA 108 (90 Base) MCG/ACT Inhalation Aerosol Solution Inhale 2 Puffs by mouth in the morning and 2 Puffs at noon and 2 Puffs in the evening and 2 Puffs before bedtime. 024 Active metFORMIN HCl ER 500 MG Oral Tablet Extended Release 24 Hour (Glucophage XR)Indications:DM type 2, goal HbA1c < 7.5% (HCC) Take 1 Tablet by mouth 2 times a day with morning and evening meals. 025 Active metFORMIN HCl ER 500 MG Oral Tablet Extended Release 24 Hour (Glucophage XR)Indications:DM type 2, goal HbA1c < 7.5% (HCC) TAKE 1 TABLET BY MOUTH ONCE DAILY IN THE MORNING 90 Tablet 3 023 2024 Discontinued Hospital, Clinic, or Other Facility Administered Medication Ordered Dose Route Frequency Start Date End Date Status Nitroglycerin (Nitrostat) sl tab 0.4 mg 0.4 mg SL Q5 MIN PRN 08/06/2020 Active documented as of this encounter (statuses as of 05/06/2024) Active Problems Problem Noted Date Diagnosed Date Cardiac arrest with ventricular fibrillation 11/2023 PAF (paroxysmal atrial fibrillation) 06/10/2023 History of cardiac arrest 11/24/2022 Abdominal aortic aneurysm (AAA) without rupture 06/09/2022 History of DC (myocardial infarction) 12/04/2021 Gastroesophageal reflux disease 08/25/2021 Primary osteoarthritis of right wrist 08/07/2021 Coronary artery disease invo lving [place] coronary artery of [place] heart without angina pectoris 01/18/2021 Presence of automatic cardioverter/defibrillator (AICD) 01/18/2021 Ventricular tachycardia 11/29/2020 Atherosclerosis of right carotid artery 11/30/19 21 Scapholunate advanced collapse of left wrist HTN, goal below 130/80 12/27/2019 DM type 2, goal HbA1c < 7.5% 12/27/2019 Umbilical hernia without obstruction and without gangrene 06/21/2018 Dyslipidemia, goal LDL below 70 06/18/2017 Glucose intolerance (impaired glucose tolerance) 04/04/2015 PLANTAR FIBROMATOSIS, RIGHT 08/23/2003 FAM HX-DIABETES MELLITUS 07/07/2000 Myopia Hearing loss documented as of this encounter (statuses as of 05/06/2024) Resolved Problems Problem Noted Date Diagnosed Date Resolved Date Cardiac arrest with ventricular fibrillation 1 11/24/2022 Diabetes mellitus without complication 12/27/2019 06/02/2022 Overview (06/02/2022): DUPLICATE AAA (abdominal aortic aneurysm) 06/22/2019 11/24/2022 Prediabetes 05/17/2018 01/12/2020 Overview: Per Prediabetes protocol #1 Dyslipidemia, goal LDL below 100 11/23/2009 06/18/2017 ADVANCE DIRECTIVE INFORMATION 10/25/2009 03/07/2024 Overview (11/07/2004): No, Advance Directive brochure given to patient. Concussion with no loss of consciousness 05/24/2009 06/18/2017 Family history of other card iovascular diseases 07/07/2000 06/18/2017 Overview (07/26/2015): ICD-10 update of inactive term ACUTE SINUSITIS NOS 07/01/1999 06/22/19 09 Overview (06/22/2008): Resolved per Benign Acute Dxs Protocol #3 documented as of this encounter (statuses as of 05/06/2024) Immunizations Name Administration Dates Next Due COVID-19 mRNA, LNP-s, No Pre serve, 2-Dose Series (Moderna) 07/06/2020,06/08/2020 COVID-19, MRNA-LNP, 24-25, P R, 30MCG/0.3ML, IM, 12YRS AND ABOVE (HouzeMe-Comirnaty) 01/25/2024 COVID-19, MRNA-LNP, PF, 30 M CG/0.3 mL, 12 YRS AND ABOVE, IM (Adioso-Comirnaty) 03/24/2023 COVID-19, mRNA, LNP-s, PF, B ooster, 100mcg/0.5mg (Moderna) 04/15/2021 Covid-19, Mrna, Lnp-s, Pf, B ivalent, 30 Mcg, IM, 12 yrs and above (Pfizer) 07/15/2022 Pneumococcal Conjugate Vacc, 13 Valent (Prevnar) 03/19/2015 Pneumococcal Polysaccharide PPV23 (Pneumovax) 03/15/2014 RSV Vac., Recomb, Adjuvant, PF,0.5 Ml (Arexvy) 02/08/2024 Season Influenza, Quad, PF, Adjuvanted, 65+ Yrs, IM (FLUAD) 01/25/2024,04/08/2023 Seasonal Influenza Vac., MDV , IM, 0.5 mL (Fluzone) 03/15/2014,02/04/2013,02/23/2012,03/17,03/21/2006 Seasonal Influenza, PF, 6 M & above, IM , (FluLaval or Fluzone) 01/27/2020 Seasonal Influenza, Quadriva lent Hd (Fluzone Hd) 02/08/2021 Seasonal Influenza, Quadriva lent, No Preserve, IM 03/15/2019,03/15/2019,03/05/2016,03/19 Seasonal Influenza, Trivalen t, Adjuvanted, 65+ YRS, PF, (Fluad) 02/08/2024,01/27/2022 TD, Preservative Free 12/27/2019 TDAP, Age 7 and older, IM (Adacel) 11/23/2009 Varicella Zoster Vaccine (Adult) 10/09/2011 documented as of this encounter Social History Tobacco Use Types Packs/Day Years Used Date Smoking Tobacco: Former Cigarettes 1 15 0 05/04/1974 - 05/04/1989 Passive Smoke Exposure: Never Smokeless Tobacco: Never Alcohol Use Standard Drinks/Week Comments Not Currently 0 (1 standard drink = 0.6 oz pure alcohol) As of 2.17.2006, the last noted alcohol intake was 1 ounces. 1 beer per wk or less PHQ-2 Answer Date Recorded PHQ Adult Total Score 0 11/11/2023 Hunger Vital Sign Answer Date Recorded Worried About Running Out of Food in the Last Ye ar Never true 06/22/2019 Ran Out of Food in the Last Year Never true 06/22/2019 Sex and Gender Information Value Date Recorded Sex Assigned at Male 12/27/2019 8:03 AM EDT Legal Sex Male 6:02 AM EST Gender Identity Male 12/27/2019 8:03 AM EDT Sexual Orientation Straight 12/27/2019 8: 03 AM EDT Occupation Industry Job Start Date Job End Date Not on file Not on file Not on file Not on file documented as of this encounter Last Filed Vital Signs Vital Sign Reading Time Taken Comments Blood Pressure 142/82 05/06/2024 8:22 AM EST Pulse 74 05/06/2024 8:22 AM EST Temperature 36.2 C (97.1 F) 05/06/2024 8:22 AM ES T Respiratory Rate 16 05/06/2024 8:22 AM EST Oxygen Saturation 94% 05/06/2024 8:22 AM EST Inhaled Oxygen Concentration - - Weight 114.5 kg (252 lb 8 oz) 05/06/2024 8:22 AM EST Height 177.8 cm (5' 10") 05/06/2024 8:22 AM EST Body Mass Index 36.23 05/06/2024 8:22 AM EST documented in this encounter Progress Notes * Mario Huitron MD - 05/06/2024 8:36 AM EST Subjective: Nilesh Mckeon is a 74 year old male. Chief Complaint Patient presents with Follow Up Patient is here today for a follow up. Patient also has ongoing issues with right knee, currently seeing orthopedics was scheduled knee replacement. HPI: 74-year-old seen today for annual exam but also at the request of Dr. Kumar as the patient is tentatively scheduled for right knee total arthroplasty May 11, 2024 at [facility]. He already has had Cardiology evaluation and has been cleared by Cardiology. This evaluation has included an echocard iogram that showed ejection fraction of 50% in unchanged in no valvular abnormality. EKG shows changes of an inferior wall myocardial infarction and right bundle branch block. He has already had is pre operative anesthesia evaluation at [facility]. I reviewed the blood work that was done for that evaluation including CBC and chemistry studies which were unremarkable and a chest x-ray which shows no significant abnormality. His past medical history includes reasonably controlled type 2 diabetes on relatively low-dose metformin only. Has a history of paroxysmal atrial fibrillation for which he is on metoprolol and Eliquis. He has been instructed to stop his Eliquis prior to surgery. His cardiac history includes a [facility] 2020 which ultimately led to angioplasty and stenting of LAD and circumflex. During that hospital stay he suffered a cardiac arrest with ventricular fibrillation and was resuscitated. He Umhas a defibrillator that was inserted August of 2020 but has never fired. He is not bothered with any low blood sugars. He is not having any abnormal bleeding difficulties. He has not had recurrent fevers. He does not have exertional chest pain. He notes some shortness of breath with a vigorous exertion but that is unchanged. Patient Active Problem List Diagnosis FAM HX-DIABETES MELLITUS PLANTAR FIBROMATOSIS, RIGHT Myopia Hearing loss Glucose intolerance (impaired glucose tolerance) Umbilical hernia without obstruction and without gangrene HTN, goal below 130/80 DM type 2, goal HbA1c < 7.5% ([facility]) Scapholunate advanced collapse of left wrist Ventricular tachycardia (HCC) Atherosclerosis of right carotid artery Coronary artery disease involving [place] coronary artery of [place] heart without angina pectoris Presence of automatic cardioverter/defibrillator (AICD) Primary osteoarthritis of right wrist Gastroesophageal reflux disease History of DC (myocardial infarction) Abdominal aortic aneurysm (AAA) without rupture (HCC) Dyslipidemia, goal LDL below 70 History of cardiac arrest Cardiac arrest with ventricular fibrillation (HCC) PAF (paroxysmal atrial fibrillation) ([facility]) Current Outpatient Medications Medication Sig Dispense Refill Aspirin 81 MG Oral Tablet Chewable 1 Tablet. Blood Glucose Monitor System w/Device Kit Check glucose twice daily 1 Kit 1 OneTouch UltraSoft Lancets Twice daily 60 Each 11 B-12 1000 MCG Oral Capsule 1 cap every other day 30 Capsule 5 OneTouch Ultra In Vitro Strip (Glucose Blood) TEST BLOOD SUGAR TWICE DAILY 100 Strip 11 Metoprolol Succinate ER 50 MG Oral Tablet Extended Release 24 Hour (toPROL XL) TAKE 1 TABLET BY MOUTH ONCE DAILY IN THE MORNING 90 Tablet 3 Rosuvastatin Calcium 20 MG Oral Tablet (Crestor) TAKE 1 TABLET BY MOUTH ONCE DAILY IN THE MORNING 90 Tablet 3 Levalbuterol Tartrate 45 MCG/ACT Inhalation Aerosol (Xopenex HFA) Inhale 1 Puff by mouth every 4 hours as needed for Wheezing. 15 g 7 Apixaban 5 MG Oral Tablet (Eliquis) Take 1 Tablet by mouth in the morning and 1 Tablet before bedtime. 180 Tablet 3 Famotidine 20 MG Oral Tablet (Pepcid) Take 1 Tablet by mouth in the morning and 1 Tablet before bedtime. 30 Tablet 11 Albuterol Sulfate HFA 108 (90 Base) MCG/ACT Inhalation Aerosol Solution Inhale 2 Puffs by mouth in the morning and 2 Puffs at noon and 2 Puffs in the evening and 2 Puffs before bedtime. metFORMIN HCl ER 500 MG Oral Tablet Extended Release 24 Hour (Glucophage XR) Take 1 Tablet by mouth2 times a day with morning and evening meals. Nitroglycerin 0.4 MG Sublingual Tablet Sublingual (Nitrostat) DISSOLVE 1 TABLET UNDER THE TONGUE EVERY 5 MINUTES NEEDED FOR CHEST PAIN. DO NOT EXCEED A TOTAL OF 3 DOSES IN 15 MINUTES. (Patient nottaking: Reported on 05/06/2024) 25 Tablet 11 Current Facility-Administered Medications Medication Dose Route Frequency Provider Last Rate Last Admin Nitroglycerin (Nitrostat) sl tab 0.4 mg 0.4 mg Sublingual Q5 Min PRN Nigel Rosales MD 0.4 mgat 08/06/20 1143 Review of patient's allergies indicates: Allergen Reactions Amoxicillin nauseated Calcipotriene Diclofenac Sodium Duralone [Methylprednisolone] Pain and swelling in knee from injection Penicillins rash 6 days after starting ABX Sodium Hyaluronate (Erik) Edema Other Sulfa Antibiotics rash 3 days after starting ABX Voltaren [Diclofenac] rash Objective: BP 142/82 (BP Site: Left Arm, BP Position: Sitting, BP Cuff Size: Regular) | Pulse 74 | Temp 97.1 F (36.2 C) (Tympanic) | Resp 16 | Ht 5' 10" (1.778 m) | Wt 252 lb 8 oz (114.5 kg) | SpO2 94% | BMI 36.23 kg/m | BSA 2.38 m Physical Exam: CONST: alert, pleasant, no acute distress HEAD: normocephalic, atraumatic Ears: He wears bilateral hearing aids. Eyes - PERRLA, EOM'I OROPHARYNX: clear, no swelling or erythema, moist CV: regular rate and rhythm, no murmur CHEST: clear to auscultation bilaterally, no rales or wheezing ABD: soft, non tender, non distended, no masses or hepatosplenomegaly EXT: no edema, no joint swelling or deformities, NEURO: AAOx3, no gross focal deficits, cerebellar signs normal, affect appropriate MENTAL STATUS: no evidence of thought disorder, no delusional thought, no evidence of paranoia, thought is non-tangential. SKIN: no rash or significant lesions ASSESSMENT/PLAN: End-stage right knee osteoarthritis-the patient is considered to be medically optimized for the proposed surgery. I do not think any further testing would be of any value prior to the surgery date. Feel the patient can proceed with the proposed surgery. Coronary artery disease-outlined above. He follows with Cardiology. He is on beta-angelo as metoprolol and a baby aspirin. History of ventricular fibrillation with cardiac arrest. No recurrence since that event in 2020 Diabetes mellitus-last hemoglobin A1c was 7.5 which is reasonable. He does remain on metformin ER 500 mg twice daily as provided to him by the [place] History of peripheral vascular disease including still abdominal aortic aneurysm-recently had repeat arterial Doppler studies which showed no change. I will see him again in 6 months Mario Huitron MD documented in this encounter Nursing Notes * Shea Tom, Student - 05/06/2024 8:32 AM EST The patient has been properly identified by confirmation of name and date of . Chief Complaint Patient presents with Follow Up Patient is here today for a follow up. Patient also has ongoing issues with right knee, currently seeing orthopedics was scheduled knee replacement. documented in this encounter Plan of Treatment Upcoming Encounters Date Type Department Care Team (Late st Contact Info) Description 06/08/2024 9:50 AM EST Office Visit Vascular Surgery, [facility] [address] [facility] [place] [address] Shorty Stweart MD [address], [place] [id number] 10/27/2024 10:00 AM EDT Office Visit Cardiology, [facility] [address] [facility] [place] [address] Erika Thomason CRNP [address] [place] [address] 11/03/2024 11:00 AM EDT Office Visit [facility] [address] [facility] [facility] [place] [phone] Mario Huitron MD [address] [facility] [place] [address] Scheduled Procedures Name Priority Associated Diagnoses Date/Ti me COLONOSCOPY FLEXIBLE PROXIMA L DIAGNOSTIC Recall Special screening for malignant neoplasms, colon Health Maintenance Due Date Last Done Comments Zoster Vaccines (2 of 3) 12/04/2011 10/09/2011 Adult Wellness Visit 2015 COVID-19 Vaccine ( season) 2024 01/25/2024, 03/24/2023, 07/15/2022, Additional history exists HbA1c 06/03/2024 12/02/2023, 07/0 12/2023, 06/04/2023, Additional history exists Depression Screening 11/10/2024 11/11/2023 Diabetic Foot Exam 11/10/2024 11/11/2023, 0 12/08/2022, 11/29/2020, Additional history exists Albumin/Creatinine Ratio 12/01/202412/01/ 024, 11/09/2023, 12/01/2022, Additional history exists GFR 12/01/2024 12/02/2023, 07/0 12/2023, 12/01/2022, Additional history exists Diabetic Eye Exam 01/26/2025 01/27/2024, , 01/27/2024, Additional history exists DTap/Tdap Vaccines (3 - Td or Tdap) 12/26/2029 12/27/2019, 11/23/2009, 02/20/2003 Fecal Occult Blood Test Discontinued 05/29/2001, 04/17 Colonoscopy Discontinued 06/21/2014, 06/21/2014 Colorectal Cancer Screening Discontinued Pneumococcal Vaccine: 50+ Years Completed 03/19/2015, 03/15/2014 Influenza Vaccine (FLU shot) Completed 02/08/2024, 01/25/2024, 04/08/2023, Additional history exists Cologuard Discontinued HPV (Gardasil) Vaccine Aged Out No lo nger eligible based on patient's age to complete this topic Hepatitis B Vaccine Aged Out No longe r eligible based on patient's age to complete this topic MENINGOCOCCAL (MENACTRA/MENVEO) Aged Out No longer eligible based on patient's age to complete this topic Sigmoidoscopy Discontinued documented as of this encounter Medical Devices Implanted Type Area Car Whacker Device Identifier Shelf Expiration Date Model / Serial / Lot Biocomposite Knotless Swivelock [place] 4.75 X 19.1mm With [place] Tape Loop And #2 Suture Implanted:Qty: 1 on 2020 by Robyn Betts DO at OR [facility] Left: Shoulder [employer] 05/03/2023 AR-2324KBC CTT / / [id number] Biocomposite Knotless Swivelock [place] 4.75 X 19.1mm With Fibertape And #2 Suture Implanted:Qty: 1 on 2020 by Robyn Betts DO at OR [facility] Left: Shoulder [employer] 05/03/[address] / / [id number] Biocomposite Swivelock Suture [place] Double Loaded Implanted:Qty: 1 on 2020 by Robyn Betts DO at OR [facility] Left: Shoulder [employer] 06/03/2021 AR-2324BCT -2 / / [id number] [place] Sut Swvlck 4.46z90sd - [id number] Implanted:Qty: 1 on 2020 by Robyn Betts DO at OR [facility] Left: Shoulder [employer] 06/03/2021 AR-2324BCC -2 / / [id number] Prox [employer] Implant Syst - [id number] Implanted:Qty: 1 on 2020 by Robyn Betts DO at OR [facility] Left: Shoulder [employer] 08/31/2024 [id number] / / [id number] documented as of this encounter Visit Diagnoses Diagnosis Primary osteoarthritis of right knee- Primary Primary localized osteoarthrosis, lower leg DM type 2, goal HbA1c < 7.5% (HCC) History of DC (myocardial infarction) Old myocardial infarction History of cardiac arrest Personal history of sudden cardiac arrest documented in this encounter Advance Directives * Full Code (Latest Code Status on File) Date Activated Date Inactivated Comments 2020 10:04 AM 2020 3:35 PM This order reflects the patients wishes and were consensually agreed upon. Care Teams Ranch Cook Relationship Specialty Start Date End Date Mario Huitron MD PCP - General 05/17/03 documented as of this encounter
--- OUTSIDE RECORDS SUMMARY | 2024-05-11 09:47 | External Medical Summary | Summary of Care ---
Author Name Unknown Organization [facility] Address [address] [place] [address] Phone [phone] Care Team Providers Care Thermoscrew Operator Name Role Phone Yordy Huitron MD Primary Care Provider [phone] Reason for Visit * Reason Comments eRx-Medication Refill Encounter Details Date Type Department Care Team (Late st Contact Info) Description 05/05/2024 Refill [facility] [address] [place] [address] Yordy Huitron MD [address], [place] [id number] DM type 2, goal HbA1c < 7.5% ([facility]) Allergies Active Allergy Reactions Criticality Noted Date Comments Amoxicillin 10/18/2009 nauseated Calcipotriene 04/28/2023 Diclofenac Sodium 09/16/2023 Methylprednisolone 08/17/2023 Pain and swelling in knee from injection Penicillins 01/11/2002 rash 6 days after starting ABX Sodium Hyaluronate (Erik) Edema Other 09/16/19 24 Sulfa Antibiotics 01/11/2002 rash 3 days after starting ABX Diclofenac 06/25/2021 rash documented as of this encounter (statuses as of 05/09/2024) Medications Aspirin 81 MG Oral Tablet Chewable 1 Tablet. 020 Active Blood Glucose Monitor System w/Device KitIndications:DM type 2, goal HbA1c < 7.5% ([facility]) Check glucose twice daily 1 Kit 1 Active OneTouch UltraSoft LancetsIndication s:DM type 2, goal HbA1c < 7.5% ([facility]) Twice daily 60 Each Active B-12 1000 MCG Oral CapsuleIndication s:B12 deficiency 1 cap every other day 30 Capsule 5 023 Active Metoprolol Succinate ER 50 MG Oral Tablet Extended Release 24 Hour (toPROL XL)Indications:Co ronary artery disease involving enterprise coronary artery of enterprise heart without angina pectoris,Other hyperlipidemia,HT N, goal below 130/80,Ischemic cardiomyopathy TAKE 1 TABLET BY MOUTH ONCE DAILY IN THE MORNING 90 Tablet 024 Active Rosuvastatin Calcium 20 MG Oral Tablet (Crestor)Indicati ons:Coronary artery disease involving enterprise coronary artery of enterprise heart without angina pectoris,Other hyperlipidemia TAKE 1 TABLET BY MOUTH ONCE DAILY IN THE MORNING 90 Tablet 024 Active Nitroglycerin 0.4 MG Sublingual Tablet Sublingual (Nitrostat)Indica tions:Coronary artery disease involving enterprise coronary artery of enterprise heart without angina pectoris DISSOLVE 1 TABLET [...] Oral Tablet (Eliquis)Indicati ons:PAF (paroxysmal atrial fibrillation) ([facility]) Take 1 Tablet by mouth in the morning and 1 Tablet before bedtime. 180 Tablet 024 Active Famotidine 20 MG Oral Tablet (Pepcid)Indicatio ns:Persistent dry cough,Gastroesoph ageal reflux disease, unspecified whether esophagitis present Take 1 Tablet by mouth in the morning and 1 Tablet before bedtime. 30 Tablet 024 Active Albuterol Sulfate HFA 108 (90 Base) MCG/ACT Inhalation Aerosol Solution Inhale 2 Puffs by mouth in the morning and 2 Puffs at noon and 2 Puffs in the evening and 2 Puffs before bedtime. 024 Active OneTouch Ultra In Vitro Strip (Glucose Blood)Indications :DM type 2, goal HbA1c < 7.5% ([facility]) TEST BLOOD SUGAR TWICE DAILY 200 Strip 2 025 Active OneTouch Ultra In Vitro Strip (Glucose Blood)Indications :DM type 2, goal HbA1c < 7.5% ([facility]) TEST BLOOD SUGAR TWICE DAILY 100 Strip 11 023 2024 Discontinued Hospital, Clinic, or Other Facility Administered Medication Ordered Dose Route Frequency Start Date End Date Status Nitroglycerin (Nitrostat) sl tab 0.4 mg 0.4 mg SL Q5 MIN PRN 08/06/2020 Active documented as of this encounter (statuses as of 05/09/2024) Active Problems Problem Noted Date Diagnosed Date Cardiac arrest with ventricular fibrillation 11/2023 PAF (paroxysmal atrial fibrillation) 06/10/2023 History of cardiac arrest 11/24/2022 Abdominal aortic aneurysm (AAA) without rupture 06/09/2022 History of [place] (myocardial infarction) 12/04/2021 Gastroesophageal reflux disease 08/25/2021 Primary osteoarthritis of right wrist 08/07/2021 Coronary artery disease invo lving enterprise coronary artery of enterprise heart without angina pectoris 01/18/2021 Presence of [...] as of this encounter (statuses as of 05/09/2024) Resolved Problems Problem Noted Date Diagnosed Date [...] as of this encounter (statuses as of 05/09/2024) Immunizations Name Administration Dates Next Due COVID-19 mRNA, LNP-s, No Pre serve, 2-Dose Series (Moderna) 07/06/2020,06/08/2020 COVID-19, MRNA-LNP, 24-25, P R, 30MCG/0.3ML, IM, 12YRS AND ABOVE (Pfizer-Comirnaty) 01/25/2024 COVID-19, MRNA-LNP, PF, 30 M CG/0.3 mL, 12 YRS AND ABOVE, IM (PFIZER-Comirnaty) 03/24/2023 COVID-19, mRNA, LNP-s, PF, B ooster, [...] on file documented as of this encounter Miscellaneous Notes * Telephone Encounter - Izaiah Yousif, [facility] - 05/09/2024 7:23 PM ESTSigned Prescriptions: Disp Refills OneTouch Ultra In Vitro Strip (Glucose Blo*[address] St*2 Sig: TEST BLOOD SUGAR TWICE DAILY Authorizing Provider: YORDY HUITRON Ordering User: IZAIAH YOUSIF * Telephone Encounter - Toya Wasserman [facility] - 05/09/2024 4:52 PM EST Did you pend patient's preferred pharmacy and medication before forwarding?yes [facility] [address] [place] [address] Pending Prescriptions: Disp Refills OneTouch Ultra In Vitro Strip (Glucose Bl*[address] St*11 Sig: TEST BLOOD SUGAR TWICE DAILY Last Visit: Visit date not found (in office), Visit date not found (telemedicine) Next Visit: 11/03/2024 If no future appointments scheduled, and last appointment is greater than a year ago, please schedule patient for a follow-up appointment Last date the medication was ordered: [id number] Is this request for a controlled substance?No Urine Drug Screen:No results found for this or any previous visit. Patient Phone Numbers Labs: Lab Results Component Value Date/Time CREAT 0.8 12/02/2023 12:00 AM CREAT 0.9 02/01/2020 02:26 PM POTASSIUM 4.5 12/02/2023 12:00 AM POTASSIUM 4.3 02/01/2020 02:26 PM LDL 42 11/09/2023 07:38 AM LDL 57 07/05/2019 08:02 AM LDL NOT APPLICABLE 07/05/2019 08:02 AM LDLCALC 49 12/02/2023 12:00 AM ALT 24 11/09/2023 07:38 AM ALT 30 02/01/2020 02:26 PM HGBA1C 7.4 (A) 12/02/2023 12:00 AM HGBA1C 6.9 (H) 12/20/2019 08:55 AM documented in this encounter Plan of Treatment Upcoming Encounters Date Type Department Care Team (Late st Contact Info) Description 06/08/2024 9:50 AM EST Office Visit Vascular Surgery, [facility] [address] [place] [address] Shorty Stewart MD [address] [place] [address] 10/27/2024 10:00 AM EDT Office Visit Cardiology, [facility] [address] [place] [address] Erika Thomason CRNP [address] [facility] [address] 11/03/2024 11:00 AM EDT Office Visit [facility] [address] [place] [address] Yordy Huitron MD [address] [place] [address] Scheduled Procedures Name Priority Associated Diagnoses Date/Ti me COLONOSCOPY FLEXIBLE PROXIMA L DIAGNOSTIC Recall Special screening for malignant neoplasms, colon Health Maintenance Due Date Last Done Comments Zoster Vaccines (2 of 3) 12/04/2011 10/09/2011 Adult Wellness Visit 2015 COVID-19 Vaccine ( season) 2024 01/25/2024, 03/24/2023, 07/15/2022, Additional history exists HbA1c 06/03/2024 12/02/2023, 07/12/2023, 06/04/2023, Additional history exists Depression Screening 11/10/2024 11/11/2023 Diabetic Foot Exam 11/10/2024 11/11/2023, 0 12/08/2022, 11/29/2020, Additional history exists Albumin/Creatinine Ratio 12/01/20242 024, 11/09/2023, 12/01/2022, Additional history exists GFR [...] this encounter Medical Devices Implanted Type Area Property Inspector Device Identifier Shelf Expiration Date Model / Serial / Lot Biocomposite Knotless Swivelock [place] 4.75 X 19.1mm With [place]cott Tape Loop And #2 Suture Implanted:Qty: 1 on 2020 by Robyn Betts DO at OR [facility] Left: Shoulder [employer] 05/03/2023 AR-2324KBC CTT / / [id number] Biocomposite Knotless Swivelock [place] 4.75 X 19.1mm With Fibertape And #2 Suture Implanted:Qty: 1 on 2020 by Robyn Betts DO at OR [facility] Left: Shoulder [employer] 05/03/[address] / / [id number] Biocomposite Swivelock Suture [place] Double Loaded Implanted:Qty: 1 on 2020 by Robyn Betts DO at OR [facility] Left: Shoulder [employer] 06/03/2021 AR-2324BCT -2 / / [id number] [place] Sut Swvlck 4.00u86xf - [id number] Implanted:Qty: 1 on 2020 by Robyn Betts DO at OR [facility] Left: Shoulder [employer] 06/03/2021 AR-2324BCC -2 / / [id number] Prox Tenodesis Implant Syst - [id number] Implanted:Qty: 1 on 2020 by Robyn Betts DO at OR [facility] Left: Shoulder [employer] 08/31/2024 AR-2290 / / [id number] documented as of this encounter Visit Diagnoses Diagnosis DM type 2, goal HbA1c < 7.5% (HCC) documented in this encounter Advance Directives * Full Code (Latest Code Status on File) Date Activated Date Inactivated Comments 2020 10:04 AM 2020 3:35 PM This order reflects the patients wishes and were consensually agreed upon. Care Teams Thermoscrew Operator Relationship Specialty Start Date End Date Yordy Huitron MD PCP - General 05/17/03 documented as of this encounter
[2024-05-11] MEDS ORDERED: ATROPINE SULFATE 0.1 MG/ML 10ML SYR IV PRN (10:07)
[2024-05-11] MEDS ORDERED: ePHEDrine sulfate 50 MG/ML AMP IV PRN (10:07)
[2024-05-11] MEDS: ORTHO JOINT ANESTHETIC ONE (10:49)
[2024-05-11] MEDS: ROPIVACAINE 0.5% HCL/PF 246 MG, Ketorolac (*for OR use only*) 30 MG in SODIUM CHLORIDE ... INFIL SCH (10:49)
[2024-05-11] MEDS: TRANEXAMIC ACID 1,000 MG **IV Intra-op IV SCH (12:04)
--- NOTE | 2024-05-11 12:22 | Operative Report ---
Post Operative Report Pre & Post Diagnosis Operation Date: 05/11/24 09:40 Pre-Op Diagnosis: Right Knee Osteoarthritis Post-Op Diagnosis: Right Knee Osteoarthritis I identified the patient and participated in the time-out.: Yes Procedure Operation Date: 05/11/24 09:40 Actual Procedures p Right Total Knee Arthroplasty, Cemented(Right), lateral release, kevin and Acticoat superficial wound VAC application- Aric Kumar MD Surgeon Aric Kumar MD Cancer Spec Fransico MURRIETA Estimated Blood Loss 5 Findings Consistent with Post-Op Diagnosis Specimens Bone cuts Drains 2 Hemovac Anesthesia Type MAC Spinal Regional Complications none Disposition Disposition: Recovery Room Indications 74-year-old male with chronic right knee pain failed conservative management with radiographic tricompartmental osteoarthritis with [id number] in the lateral compartment. Description of Procedure Patient taken to the operating room the size under spinal MAC regional block anesthesia. Patient was placed supine on the operating table. A pneumatic tourniquet was placed about the right upper thigh. The right lower extremity was prepped and draped in sterile fashion. Knee exam demonstrated 0 through 125 degrees range of motion no pseudolaxity. The leg was elevated exsanguinated with an Esmarch bandage and pneumatic tourniquet was raised to 325 millimeters of mercury. Skin incised sharply in longitudinal fashion. Subcutaneous flaps elevated. Incision was made through the medial retinaculum extending up in the mid third of the quadriceps tendon and down to the medial tibial tubercle. Intra-articular findings demonstrated tricompartmental osteoarthritis with [id number] lateral compartment and some hypoplasia of the lateral femoral condyle.. The [place] triathlon total knee arthroplasty system was used. To expose the knee the infrapatellar fat pad was resected. The meniscal remnants and cruciate ligaments were resected. The anterior fat pad over the femur in the area of the location of the anterior flange of the femoral component was resected. The lateral synovial bands were released. The femur was exposed. An intramedullary drill hole was made into the canal. A guide patrica was placed. Distal femoral cutting guide was adjusted to resect a 6 degree valgus cut with a millimeters distal femur resected. Bone quality was very hard and solid. The knee was extended and a subperiosteal peel lateral release was performed around the patella. Patella width was measured and width was reproduced using a freehand cut technique and a 36 mm symmetrical patella component. The 3 drill holes were made and the excess lateral facet was beveled off to prevent any impingement. Attention was taken back to the femur which was exposed with retractors and the femoral sizing guide was pinned in position. The drill holes were placed in 3 of external rotation to match the epicondylar axis. We did slightly externally rotate the guide further than the markings to do some bone loss on the femoral condyle and adjusted this to be in line with Whitesides line.. The femur sized for a 7 component. The 4-in-1 cutting block was placed and then the anterior posterior and chamfer cuts are made. The tibia was then subluxed. The external tibial cutting guide was adjusted to make a perpendicular cut to the long axis of the tibia below the most deficient bone loss side. Cut was adjusted for slope. A lamina motor power connector was used and the flexion extension gaps were balanced. No releases were required. All posterior osteophytes removed. All meniscal remnants were resected. The tibia exposed and the trial tibial component size 7 was maximally externally rotated in line with the tibial tubercle and pinned in position. The punch for stem was used. The notch cutting device was centered appropriately and the femoral notch cut was made. The femoral trial was inserted. Trial tibial inserts were placed and size 11 PS insert gave balanced ligaments through flexion and extension. Patella tracking was assessed. The patella tracked with lateral tilt so I had to do a lateral release and I preserve the synovium for circulation laterally. Patella subsequently tracked centrally.. The trial components were then removed and the orthomix anesthetic cocktail was injected per protocol. The knee was then copiously irrigated with pulsatile lavage saline solution. Final components were then cemented with Refobacin cement. Xperience irrigation placed over metal compoments prior to polyethylene insertion. Final components were [place] triathlon size 7 right posterior stabilized femoral component, size 7 tibial component, size 7 X.3 polyethylene 11 mm tibial bearing insert, 36 mm X.3 polyethylene symmetrical patella. After the cement cured further pulsatile lavage irrigation was then performed with Xperience and 2 Hemovac drains were brought out laterally. The quadriceps tendon and medial retinaculum were closed with #2 FiberWire in the distal quad tendon medial retinaculum around the patella and additional suture over the tibial polyethylene level of the medial retinaculum below the patella and an additional suture at the apex of the quad split proximally. I then used a running locking oh strata fix suture from the superior apex down to the inferior patella and then below the patella interrupte d [id number] #1 Vicryl sutures.. The knee was taken through full range of motion and the repair was secure. Knee range of motion was 0 through 130 degrees. The subcutaneous tissues were closed with 2-0 Vicryl sutures. Skin was closed with surgical zander. Kevin and Acticoat superficial wound VAC was applied. Im ordering 10 grams of HELIX3-CP Collagen Powder (CapsoVision [id number]) to treat an incision wound that will be caused by a total knee procedure. The incision is approximately [4] cm(W) x [12] cm(L) into the joint (D) in size and is a full thickness wound. Helix3-CP collagen comes in 1 gram packages so 10 packages were ordered. Given the size of the wound, with light to moderate exudate I chose to order a 10 day supply for each wound. The patient will be provided instructions for proper application of the collagen wound kit. The patient will be asked to apply the collagen powder daily and then cover it with sterile dressings dispensed. Collagen was selected as I expect the collagen to attract monocytes and fibroblasts, act as a sacrificial substrate for MMPs, and ultimately proved a matrix for tissue and vessel growth. The collagen will act as a primary dressing in this scenario. It is medically necessary for proper healing of these wounds to improve bioavailability and contact with each wound surface, this is also to help prevent infection of wounds and promote healing ultimately leading to a better healing outcome and limit the risk of infection. The patient tolerated the procedure well. Fransico MURRIETA was my physician assistant merchandiser who participated as rehabilitation assistant and was involved in all aspects of the procedure including patient positioning prepping and draping,leg positioning ,soft tissue retraction and instrument management and participated i n the closing and application superficial wound VAC and will participate in postoperative care of the patient. The patient tolerated the procedure well. I attest to the content of the Intraoperative Record and any orders documented therein. Any exceptions are noted below.
--- NOTE | 2024-05-11 13:18 | XRay Report ---
XR knee RT 1 or 2V routine CLINICAL HISTORY: Surgical Post Op COMPARISON: None FINDINGS: Right knee prosthesis shows no hardware complication. There is expected soft tissue gas. T here are postoperative drains. Skin zander are present. IMPRESSION: Unremarkable postoperative exam. ACT 112: Negative or not required by law. Electronically signed by: Anurag Silva M.D. 05/11/2024 1:16 PM
--- NOTE | 2024-05-11 14:37 | Anesthesiology Progress Note ---
Date of Service May 11, 2024 Anesthesia Post Procedure Vital Signs Vital Signs: Temp Pulse Pulse Resp BP Pulse Ox O2 Del Method 05/11/24 14:25 80 23 105/78 94 Nasal Cannula 05/11/24 14:10 78 20 104/64 94 Nasal Cannula 05/11/24 13:55 60 16 116/68 94 Nasal Cannula 05/11/24 13:40 75 13 107/63 95 Nasal Cannula 05/11/24 13:25 36.4 C L 62 12 101/59 L 96 Nasal Cannula 05/11/24 13:15 78 20 112/67 93 Nasal Cannula 05/11/24 13:05 76 17 111/63 93 Nasal Cannula 05/11/24 12:55 63 21 106/66 96 Oxymask 05/11/24 12:45 80 18 108/69 95 Oxymask 05/11/24 12:39 36.2 C L 80 18 121/66 92 Oxymask 05/11/24 07:08 Room Air 05/11/24 07:08 36.5 C 61 20 148/98 H 92 Room Air O2 Flow Rate 05/11/24 14:25 2 05/11/24 14:10 2 05/11/24 13:55 3 05/11/24 13:40 3 05/11/24 13:25 3 05/11/24 13:15 3 05/11/24 13:05 3 05/11/24 12:55 12 05/11/24 12:45 12 05/11/24 12:39 12 05/11/24 07:08 05/11/24 07:08 Transfer of Care Handoff Completed per policy Notes Mental Status: alert / awake / arousable Patient Amnestic to Procedure: Yes Nausea / Vomiting: adequately controlled Pain: adequately controlled Airway Patency, RR, SpO2: stable & adequate BP & HR: stable & adequate Hydration State: stable & adequate Neuraxial Anesthesia: was administered and sensory block is resolving Anesthetic Complications: no major complications apparent
[2024-05-11] MEDS ORDERED: HYDROmorphone INJ 0.5 MG/0.5 ML SYR IV PRN (15:48)
[2024-05-11] MEDS ORDERED: diphenhydrAMINE Capsule 25 MG CAP PO PRN (15:48)
[2024-05-11] MEDS ORDERED: ALBUTEROL HFA 8 GM INHALER INH PRN (15:48)
[2024-05-11] MEDS ORDERED: VANCOMYCIN CONSULT ACTIVE PRN (15:48)
[2024-05-11] MEDS ORDERED: NITROGLYCERIN SL 0.4 MG/TAB TAB SL PRN (15:48)
[2024-05-11] MEDS ORDERED: bisacodyL 10 MG SUPP PR PRN (15:48)
[2024-05-11] MEDS ORDERED: ALUMINUM/MAGNESIUM SUSP 30 ML UDC PO PRN (15:48)
[2024-05-11] MEDS ORDERED: TAMSULOSIN HCL 0.4 MG CAP PO PRN (15:48)
[2024-05-11] MEDS ORDERED: MAGNESIUM HYDROXIDE SUSP 30 ML UDC PO PRN (15:48)
[2024-05-11] MEDS ORDERED: PHARMACY GLYCEMIC MGMT CONSULT PRN (15:48)
[2024-05-11] MEDS ORDERED: NALOXONE HCL 0.4 MG/1 ML VIAL/CARP IV PRN (15:48)
[2024-05-11] MEDS ORDERED: KETOROLAC TROMETHAMINE 15 MG/ML VIAL IV PRN (15:48)
[2024-05-11] MEDS ORDERED: METOCLOPRAMIDE HCL INJ 5 MG/ML 2 ML VIAL IV PRN (15:48)
--- NOTE | 2024-05-11 16:10 | Consultation ---
Date of Consultation May 11, 2024 Assessment & Plan (1) S/P total knee arthroplasty: (2) Osteoarthritis of right knee: Post op day#0 S/P Right TKA by Dr José TEAGUE#5ml Pain management per ortho Wound management per ortho PT/OT as appropriate DVT prophylaxis - ortho ordered home Eliquis to restart tomorrow Incentive spirometry Monitor H&H for acute blood loss anemia; pre-op Hgb: 15 (3) Paroxysmal A-fib: Appears regular on auscultation Anticoagulated on Eliquis. Eliquis has been on hold past 3 day. Ortho has ordered to restart 05/12/24 Continue metoprolol succinate (4) CAD (coronary artery disease): (5) History of ST elevation myocardial infarction (STEMI): (6) Hx of cardiac arrest: (7) HTN (hypertension): (8) Dyslipidemia: (9) ICD (implantable cardioverter-defibrillator) in place: CAD, History STEMI in 2020, s/p stents, H/O post-STEMI in hospital VF cardiac arrest, s/p defibrillator Continue aspirin, metoprolol succinate, rosuvastatin (10) T2DM (type 2 diabetes mellitus): A1c: 7.5 on 04/20/24 Hold home metformin Novolog sliding scale per protocol, Glycemic pharmacy managing DVT Prophylaxis SCDs for now. Eliquis is to resume 05/12/24. Would recommend patient would continue his home Eliquis and home 81mg aspirin for ongoing DVT prophylaxis and avoid BID dosing of aspirin. Disposition per primary team Follows with Dr Huitron for routine care Pt was seen and care coordinated with Dr Martínez. See addendum Thank you for this consultation. We will follow the patient with you during their hospital stay. You can reach a member of the [facility] via [facility] Supervising Physician Co-Signing Physician Notes Attending Addendum: Case reviewed with the advanced practitioner. I have personally performed a history and physical examination on the patient. I have reviewed the advanced practitioner's documentation on the date of service referenced in note, and I agree with, and take responsibility for the plan of care. please refer to her notes for full details patient seen and examined, records reviewed by myself as well Bar Martínez MD History of Present Illness Requesting Physician: Dr Kumar Reason for Consultation: Post op medical management Attending Physician: Aric Kumar MD History of Present Illness Patient is 74 year old male with PMH HTN, HLD, CAD, STEMI, s/p stent, H/O post- STEMI in hospital VF cardiac arrest, s/p defibrillator, paroxysmal atrial fibrillation, anticoagulated on Eliquis, DM II seen in medical consultation s/p Right TKA today by Dr Kumar. Post op patient reports doing well. Leg is still numb and not having pain yet. Starting to be able to move toes and foot. Last BM this morning. Not urinated yet since coming to floor. Denies fever/chills, N/V/D/C, PORRAS, dizziness, CP, SOB, palpitations, cough, rhinorrhea, abdominal pain, extremity edema, rashes, urinary symptoms. Allergies Allergy/AdvReac Type Severity Reaction Status Date / Time hyaluronic acid Allergy Severe Severe Verified 05/11/24 06:56 knee swelling (with knee injection) diclofenac Allergy Intermediate Rash (with Verified 05/11/24 06:56 voltaren gel) Sulfa (Sulfonamide Allergy Intermediate Hives Verified 05/11/24 06:56 Antibiotics) amoxicillin AdvReac Mild Nausea, Verified 05/11/24 06:56 vomiting Penicillins AdvReac Mild Nausea, Verified 05/11/24 06:56 vomiting Home Medications Medication Instructions Recorded Confirmed Type metformin 500 mg tablet,extended 500 mg PO BID 02/23/20 05/11/24 History release 24 hr cyanocobalamin (vitamin B-12) 1,000 mcg PO Q2D 08/06/20 05/11/24 History 1,000 mcg capsule aspirin 81 mg tablet,delayed 81 mg PO QAM #30 tabs 08/11/20 05/11/24 Rx release metoprolol succinate 50 mg 50 mg PO QAM #30 tabs 08/11/20 05/11/24 Rx tablet,extended release 24 hr Realtime Pain Relief 1 dose topical DAILY PRN wrist pain 04/14/24 History albuterol sulfate 90 mcg/actuation 1 inh inhalation QID PRN sob 04/14/24 05/11/24 History aerosol inhaler apixaban 5 mg tablet 5 mg PO BID 04/14/24 05/11/24 History famotidine 20 mg tablet 20 mg PO QAM 04/14/24 05/11/24 History nitroglycerin 0.4 mg sublingual 0.4 mg sublingual UD PRN Chest Pain 04/14/24 05/11/24 History tablet acetaminophen 500 mg tablet 1,000 mg (2 x 500 mg) PO Q8H #90 05/11/24 Rx (Tylenol Extra Strength) tabs aspirin 81 mg tablet,delayed 81 mg PO BID #60 tabs 05/11/24 Rx release cefadroxil 500 mg capsule 500 mg PO Q12H #28 caps 05/11/24 Rx oxycodone 5 mg tablet 5 mg PO Q8H PRN pain #20 tabs 05/11/24 Rx rosuvastatin 20 mg tablet 20 mg PO DAILY 05/11/24 05/11/24 History Patient History Medical History Ascending aorta enlargement [facility] cardio records: "Enlarged aortic root and ascending aorta, 4.3 cm/4.2 cm respectively per echo 04/2023" Aortic root enlargement [facility] cardio records: "Enlarged aortic root and ascending aorta, 4.3 cm/4.2 cm respectively per echo 04/2023" Paroxysmal A-fib on Eliquis Obesity CAD (coronary artery disease) Stents x4 (2020) Arthritis GERD (gastroesophageal reflux disease) Per records, patient denies Takes famotidine daily History of skin cancer s/p cryotherapy treatments History of stroke during the cardiac arrest?? pt unsure. 08/2020 -> affected the right eye (had a blood clot in the " center of the eye") - limited eye sight History of ST elevation myocardial infarction (STEMI) (08/2020) Hx of cardiac arrest V.Fib after STEMI/stent placement (2020), successful defib, CPR and medical therapy Dyslipidemia HTN (hypertension) controlled, stable per pt ICD (implantable cardioverter-defibrillator) in place Medtronic ICD/Pacemaker implanted 2020, follows with [facility] cardio AAA (abdominal aortic aneurysm) [facility] cardio records: "AAA, 3.1 cm per duplex 04/2023" Follows with [facility] vascular, one year f/u per 05/2023 visit T2DM (type 2 diabetes mellitus) NIDDM Hypercholesterolemia Rheumatoid arthritis Surgical History S/P ICD (internal cardiac defibrillator) procedure (08/2020) ICD/Pacemaker History of heart artery stent (08/2020) Stents x4 History of cardiac cath (08/2020) Stented coronary artery ZARA x2 LAD, ZARA x1 pCx, ZARA x1 late mid to early LAD History of colonoscopy S/P rotator cuff repair R/L Family History Father Myocardial infarction, Onset Age: 63 Mother , 78 Myocardial infarction Diabetes Brother Myocardial infarction, Onset Age: 53 Sister Myocardial infarction, Onset Age: 63 Coronary heart disease Social History Smoking Status: Former smoker Tobacco Type: Cigarettes packs per day: 1; Smoking End Date: ~1989; Second Hand Exposure: No; Do You Dip or Chew Tobacco: No; Tobacco Cessation Education Requested by Patient: No Hx Alcohol Use: No Hx Substance Use: No Preferred Language: [place] Leonean Communication Ability: Effective Sand Mixer Required: No Beliefs That Will Affect Care: None marital status: Current Living Situation: Spouse current occupational status: employed 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 Other Information That Helps Us Care for You: No Feels Safe at Home: Yes Safety Concerns: Feels Safe At This Time Assistive Devices: Glasses and Hearing Aid - Bilateral Review of Systems Review of Systems: All systems reviewed & are unremarkable except as noted in HPI & below Physical Exam Physical Exam: General: no distress, overweight Head: normocephalic, atraumatic Eyes: conjunctiva non-injected, anicteric ENT: normal inspection external ears, nose, mucous membranes moist Neck: supple, trachea midline Lungs: clear, no respiratory distress, no wheezing/rhonchi/rales CV: RRR, no murmur, no pretibial edema Abd: protuberant, normal BS, soft, non-tender Ext: no calf tenderness, RLE: +surgical dressing and SUZANNA wrap in place, +hemovac in place, able to dorsiflex and plantar flex toes and feet, sensation to light touch intact Neuro: A&O x 3, no focal deficits noted, normal affect Skin: warm, dry Results & Data Vital Signs (Past 12 Hours) Vital Signs Temp Pulse Pulse Resp BP Pulse Ox O2 Del Method 05/11/24 14:55 64 20 115/72 93 Nasal Cannula 05/11/24 14:25 80 23 105/78 94 Nasal Cannula 05/11/24 14:10 78 20 104/64 94 Nasal Cannula 05/11/24 13:55 60 16 116/68 94 Nasal Cannula 05/11/24 13:40 75 13 107/63 95 Nasal Cannula 05/11/24 13:25 36.4 C L 62 12 101/59 L 96 Nasal Cannula 05/11/24 13:15 78 20 112/67 93 Nasal Cannula 05/11/24 13:05 76 17 111/63 93 Nasal Cannula 05/11/24 12:55 63 21 106/66 96 Oxymask 05/11/24 12:45 80 18 108/69 95 Oxymask 05/11/24 12:39 36.2 C L 80 18 121/66 92 Oxymask 05/11/24 07:08 Room Air 05/11/24 07:08 36.5 C 61 20 148/98 H 92 Room Air O2 Flow Rate 05/11/24 14:55 2 05/11/24 14:25 2 05/11/24 14:10 2 05/11/24 13:55 3 05/11/24 13:40 3 05/11/24 13:25 3 05/11/24 13:15 3 05/11/24 13:05 3 05/11/24 12:55 12 05/11/24 12:45 12 05/11/24 12:39 12 05/11/24 07:08 05/11/24 07:08 Diagnostic Findings Knee X-Ray 05/11/24 12:48 XR knee RT 1 or 2V routine CLINICAL HISTORY: Surgical Post Op COMPARISON: None FINDINGS: Right knee prosthesis shows no hardware complication. There is expected soft tissue gas. There are postoperative drains. Skin zander are present. IMPRESSION: Unremarkable postoperative exam. ACT 112: Negative or not required by law. Electronically signed by: Anurag Silva M.D. 05/11/2024 1:16 PM (2) Osteoarthritis of right knee Osteoarthritis type: primary Qualified Code(s): M17.11 - Unilateral primary osteoarthritis, right knee
[2024-05-11] MEDS: INSULIN ASPART PER UNIT CHARGE SC SCH (17:22)
[2024-05-11] MEDS: LANTUS PER UNIT CHARGE SC ONE (17:23)
[2024-05-11] MEDS ORDERED: metFORMIN HCL ER 500 MG TABCR PO SCH (21:00)
[2024-05-11] MEDS: TRANEXAMIC ACID / 0.7% NACL 1,000 MG/100 ML BAG IV SCH (21:16)
[2024-05-11] MEDS: DOCUSATE SODIUM 100 MG CAP PO SCH (21:16)
[2024-05-11] MEDS: SENNA 8.6 MG TAB PO SCH (21:17)
[2024-05-11] MEDS: ROSUVASTATIN CALCIUM 20 MG TAB PO SCH (21:31)
[2024-05-12 06:08] LABS: Hematocrit (blood only) 35.9 % (42.0-52.0); Hemoglobin 12.3 g/dl (14.0-18.0); Mean Corpuscular Hemoglobin 33.5 pg (25.0-34.0); Mean Corpuscular Hgb Conc 34.3 g/dL (32.0-36.0); Mean Corpuscular Volume 97.8 fL (80.0-100.0); Mean Platelet Volume 9.4 fL (9.4-12.4); Platelet Count 166 K/uL (130-400); RDW Coefficient of Variation 13.3 % (11.5-14.5); Red Blood Count 3.67 M/uL (4.70-6.10); White Blood Count 13.84 K/ul (4.8-10.8)
[2024-05-12 06:21] LABS: Calcium 8.9 mg/dl (8.6-10.3); Creatinine Clr Calc Pharmacy 80.9 ml/min; Potassium 4.8 mmol/L (3.5-5.1)
--- NOTE | 2024-05-12 08:10 | Orthopedic Progress Note ---
Date of Service May 12, 2024 Assessment & Plan (1) Osteoarthritis of right knee: Plan: End-stage osteoarthritis lateral compartment right knee. Adverse reaction to viscosupplement injection. Patient had extensive conservative management and best plan is to proceed with total knee replacement right knee. Postop day 1 right total knee replacement. Have him seen by medical team make sure he is okay with regard to the oxygen situation otherwise you should be able to go home with home nursing and PT for 2 weeks and then start outpatient physical therapy after that. Hemovac drain to be discontinued prior to discharge. Admission and Anticipated Discharge Date Admission Date: May 11, 2024 Subjective Feels well, no significant pain. Review of Systems Review of Systems: No procedure shortness of breath although he is on oxygen. He said he has chronic low oxygen level. Physical Exam Musculoskeletal: Distal circulation sensorimotor exam intact right leg. Independent straight leg raise. Dressing dry and intact. And Hemovac drainage decreased at this point. Results & Data Vital Signs (Past 12 Hours) Vital Signs Temp Pulse Resp BP Pulse Ox O2 Del Method O2 Flow Rate 05/12/24 07:38 36.6 C 68 18 131/75 94 Nasal Cannula 3 05/12/24 02:52 36.4 C L 69 18 112/68 92 Nasal Cannula 4 05/11/24 22:51 36.4 C L 76 16 116/68 93 Nasal Cannula 4 05/11/24 21:15 Nasal Cannula 3 Diagnostic Findings Well aligned right total knee replacement (1) Osteoarthritis of right knee Osteoarthritis type: primary Qualified Code(s): M17.11 - Unilateral primary osteoarthritis, right knee
--- NOTE | 2024-05-12 09:12 | Pharmacy Report ---
Pharmacy Glycemic Short Note 2 - Date of Service May 12, 2024 - Glycemic Short BSG Results (Last 24 hours): 05/11/24 05/11/24 05/11/24 12:46 16:41 20:27 Glucose POC Glucose 135 H 205 H 213 H 05/12/24 05/12/24 05:34 07:37 Glucose 156 H POC Glucose 145 H OUTPATIENT ANTIDIABETIC REGIMEN: * metformin 500 mg PO BIDM HbA1c: 7.5% (04/20/24) ASSESSMENT: * CHARLETTE is a 74 year old male POD #1 s/p right total knee arthroplasty * Received 8 mg IV dexamethasone in OR, no steroids ordered ongoing * Hyperglycemic following surgery, but will loosen insulin regimen slightly today since steroids have been discontinued * Will continue to follow, anticipate only minor changes PLAN FOR INPATIENT GLYCEMIC CONTROL: * Hold outpatient oral diabetes medications * Basal insulin * Lantus 10 units SQ daily (~0.1 unit/kg) * Bolus insulin * NovoLog per scale ACHS or Q6hrs while NPO * Goal Range: Low 110 mg/dL - High 140 mg/dL * Correction Factor: 20 mg/dL/unit * Nutritional / Prandial insulin per carb ratio of 1 unit per 6 grams CHO consumed
--- NOTE | 2024-05-12 09:20 | XRay Report ---
XR chest 1V portable HISTORY: 74 years-old Male hypoxia COMPARISON: 04/20/2024 TECHNIQUE: AP view of the chest FINDINGS: Cardiac silhouette is enlarged. Left subclavian pacer/AICD. Pulmonary vascular congestion. The lungs are mildly hypoinflated. Trace pleural effusions with mild bibasilar atelectasis. Bones appear grossl y intact. Cannulated screw projects over the right humeral head. IMPRESSION: 1. Cardiomegaly with pulmonary vascular congestion. 2. Trace pleural effusions. ACT 112: Negative or not required by law. The above report was generated using voice recognition software. It may contain grammatical, syntax o r spelling errors. Electronically signed by: Juan Miranda M.D. 05/12/2024 9:19 AM
[2024-05-12] MEDS: FAMOTIDINE 20 MG TAB PO SCH (09:59)
[2024-05-12] MEDS: APIXABAN 5 MG TABLET PO SCH (09:59)
[2024-05-12] MEDS: ASPIRIN 81 MG ECTAB PO SCH (09:59)
[2024-05-12] MEDS: METOPROLOL SUCC 50MG EXT REL TAB PO SCH (10:00)
[2024-05-12] MEDS: MULTIVITAMIN TAB PO SCH (10:00)
[2024-05-12] MEDS: LANTUS PER UNIT CHARGE SC SCH (10:09)
--- NOTE | 2024-05-12 13:24 | Hospitalist Progress Note ---
Date of Service May 12, 2024 Assessment & Plan (1) S/P total knee arthroplasty: (2) Osteoarthritis of right knee: (3) Paroxysmal A-fib: (4) CAD (coronary artery disease): (5) History of ST elevation myocardial infarction (STEMI): (6) Hx of cardiac arrest: (7) HTN (hypertension): (8) Dyslipidemia: (9) ICD (implantable cardioverter-defibrillator) in place: (10) T2DM (type 2 diabetes mellitus): Plan Patient is a 74 year old male with PMHx significant for HTN, HLD, CAD, STEMI s/p stent, H/O post-STEMI in hospital VF cardiac arrest, s/p defibrillator, paroxysmal atrial fibrillation, anticoagulated on Eliquis, DM II seen in medical consultation s/p Right TKA today by Dr Kumar. Pt also with noted acute hypoxia requiring oxygen supplementation on 05/12/24 S/P total knee arthroplasty Osteoarthritis of right knee Post op day#1 S/P Right TKA by Dr Kumar EBL#5ml Pain management per ortho Wound management per ortho PT/OT as appropriate DVT prophylaxis - ortho ordered home Eliquis to restart on 05/12/24 Incentive spirometry Monitor H&H for acute blood loss anemia; pre-op Hgb: 15, currently 12. Acute Hypoxic Respiratory failure Pt with increased oxygen requirement postop Also noted new leukocytosis Respiratory viral panel completely negative Chest XRAY noting small bilateral pleural effusions and cardiomegaly with pulm vasc congestion CTA chest ordered and pending (pt has been off Eliquis for 3 days pre-op BNP normal One dose of IV lasix 20mg Oxygen supplementation as needed, wean as tolerated Incentive spirometry With leukocytosis, started on empiric Augmentin will need 2 step before discharge Continue to monitor- discussion with pt of the need for overnight monitoring, agreeable to staying overnight Paroxysmal A-fib Pacemaker in situ EKG postop noting sinus rhythm with RBBB Continue metoprolol succinate Anticoagulated on Eliquis. Eliquis has been on hold past 3 day. Ortho has ordered to restart 05/12/24 Telemetry monitoring added CAD (coronary artery disease) History of ST elevation myocardial infarction (STEMI) Hx of cardiac arrest HTN (hypertension) Dyslipidemia ICD (implantable cardioverter-defibrillator) in place CAD History STEMI in 2020 s/p stents H/O post-STEMI in hospital VF cardiac arrest s/p defibrillator Continue aspirin, metoprolol succinate, rosuvastatin Telemetry monitoring added T2DM (type 2 diabetes mellitus) A1c: 7.5 on 04/20/24 Hold home metformin Novolog sliding scale per protocol Glycemic pharmacy managing Continue other home meds as ordered Diet: DMII/HH DVT Prophylaxis: Augustus is to resume 05/12/24 Dispo: Home once medically stable Admission and Anticipated Discharge Date Admission Date: May 11, 2024 Subjective Patient was seen in the a.m. 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 Review of Systems Review of Systems: All systems reviewed & are unremarkable except as noted in Subjective Physical Exam Physical Exam: General: Alert, oriented. No acute distress Psych: Appropriate mood and affect HEENT: NC/AT CV: RRR Resp: NC in nares, Breath sounds clear bilaterally, no increased effort of breathing. No crackles/rhonchi/rales. Abdomen: Soft, nontender Extremities: RLE in bandages Results & Data Results & Data Vital Signs (Past 12 Hours) Vital Signs Temp Pulse Resp BP BP Pulse Ox O2 Del Method 05/12/24 09:55 77 147/81 H 05/12/24 07:38 36.6 C 68 18 131/75 94 Nasal Cannula 05/12/24 02:52 36.4 C L 69 18 112/68 92 Nasal Cannula O2 Flow Rate 05/12/24 09:55 05/12/24 07:38 3 05/12/24 02:52 4 Diagnostic Findings Chest X-Ray 04/20/24 07:48 EXAM: Radiographs of the Chest 2 Views INDICATION: Undergoing preoperative evaluation. TECHNIQUE: Frontal and lateral views of the chest. COMPARISON: 08/10/2020 FINDINGS: Lungs and pleural spaces: There is now minimal scarring in the left lung base. No consolidation or pulmonary edema. No pleural effusion or pneumothorax. Heart: Stable enlargement and right atrial and ventricular pacing wires. Mediastinum: Stable prominent right paratracheal soft tissues likely vascular. Bones/joints: No fracture, erosion or dislocation. Vasculature: Stable ectatic aorta with mild calcification in the descending segment. IMPRESSION: Minimal scarring in the left lung base. Otherwise unchanged. ACT 112: Negative or not required by law. Electronically signed by Litzy Barnes 04-20-2024 6:49 PM Cervical Spine X-Ray 04/20/24 15:41 PROCEDURE: 2 views of the cervical spine CLINICAL INFORMATION: Preop, limited range of motion TECHNIQUE: 2 views of the cervical spine COMPARISON: None available FINDINGS: Normal cervical lordosis. No acute fracture or malalignment. C3-C4 and C5-C6 discogenic disease. No acute fracture or malalignment. IMPRESSION: C3-C4 and C5-C6 discogenic disease. No acute fracture or malalignment. No change in alignment on the flexion or extension view. This examination was dictated by John Young MD. Electronically signed by John Glez 04-20-2024 10:35 PM Knee X-Ray 05/11/24 12:48 XR knee RT 1 or 2V routine CLINICAL HISTORY: Surgical Post Op COMPARISON: None FINDINGS: Right knee prosthesis shows no hardware complication. There is exp ected soft tissue gas. There are postoperative drains. Skin zander are present. IMPRESSION: Unremarkable postoperative exam. ACT 112: Negative or not required by law. Electronically signed by: Anurag Silva M.D. 05/11/2024 1:16 PM Chest X-Ray 05/12/24 08:31 XR chest 1V portable HISTORY: 74 years-old Male hypoxia COMPARISON: 04/20/2024 TECHNIQUE: AP view of the chest FINDINGS: Cardiac silhouette is enlarged. Left subclavian pacer/AICD. Pulmonary vascular congestion. The lungs are mildly hypoinflated. Trace pleural effusions with mild bibasilar atelectasis. Bones appear grossly intact. Cannulated screw projects over the right humeral head. IMPRESSION: 1. Cardiomegaly with pulmonary vascular congestion. 2. Trace pleural effusions. ACT 112: Negative or not required by law. The above report was generated using voice recognition software. It may contain grammatical, syntax or spelling errors. Electronically signed by: Juan Miranda M.D. 05/12/2024 9:19 AM (2) Osteoarthritis of right knee Osteoarthritis type: primary Qualified Code(s): M17.11 - Unilateral primary osteoarthritis, right knee
[2024-05-12 14:41] LABS: Adenovirus PCR Not Detected (NotDetected); Bordetella parapertussis PCR Not Detected (NotDetected); Bordetella pertussis PCR Not Detected (NotDetected); Chlamydia pneumoniae PCR Not Detected (NotDetected); Coronavirus 229E PCR Not Detected (NotDetected); Coronavirus CoV-2 (COVID19)PCR Not Detected (NotDetected); Coronavirus HKU1 PCR Not Detected (NotDetected); Coronavirus NL63 PCR Not Detected (NotDetected); Coronavirus OC43PCR Not Detected (NotDetected); Human Metapneumovirus PCR Not Detected (NotDetected); Influenza A PCR Not Detected (NotDetected); Influenza B PCR Not Detected (NotDetected); Mycoplasma pneumoniae PCR Not Detected (NotDetected); Parainfluenza Virus 1 PCR Not Detected (NotDetected); Parainfluenza Virus 2 PCR Not Detected (NotDetected); Parainfluenza Virus 3 PCR Not Detected (NotDetected); Parainfluenza Virus 4 PCR Not Detected (NotDetected); Respiratory Syncytial VirusPCR Not Detected (NotDetected); Rhinovirus/Enterovirus PCR Not Detected (NotDetected)
[2024-05-12] MEDS: FUROSEMIDE INJ 20 MG/2 ML VIAL IV ONE (16:39)
--- NOTE | 2024-05-12 16:39 | Electrocardiogram Report ---
Test Reason : Blood Pressure : */* mmHG Vent. Rate : 73 BPM Atrial Rate : 73 BPM P-R Int : 182 ms QRS Dur : 152 ms QT Int : 422 ms P-R-T Axes : 36 0 10 degrees QTcB Int : 464 ms Normal sinus rhythm Right bundle branch block Abnormal ECG When compared with ECG of 09-Aug-2020 18:31, Right bundle branch block is now Present T-wave inversion in Anterior leads no longer present Confirmed by Silverio Ramsay ([id number]) on 05/12/2024 4:39:27 PM Referred By: Aric Kumar Confirmed By: Silverio Ramsay
[2024-05-12] MEDS: AMOXICILLIN/CLAVULANATE 875 MG TAB PO SCH (17:26)
[2024-05-12] MEDS: oxyCODONE HCL IR 5 MG TAB (IMMEDIATE RELEASE) PO PRN (17:33)
[2024-05-12] MEDS: OPTIRAY 320 125ml IV ONE (18:49)
--- NOTE | 2024-05-12 19:36 | CT Scan Report ---
Exam(s): CTA CHEST IV Amt: 115 ml optiray 320 EXAM: CT Angiography Chest With Intravenous Contrast CLINICAL HISTORY: Reason for exam: PE. TECHNIQUE: Axial computed tomographic angiography images of the chest with intravenous contrast. CTDI is 23.75 mGy and DLP is 824.38 mGy-cm. Automated exposure control was utilized for the study. A dose lowering technique was utilized adhering to the principles of ALARA. MIP reconstructed images were created and reviewed. COMPARISON: Chest x-ray from May 12, 2024 FINDINGS: Pulmonary arteries: The pulmonary arterial tree is well opacified with contrast. No pulmonary emboli are identified. Aorta: The aortic arch is mildly calcified but nondilated. There is no aneurysm or dissection. Lungs: Trace amount of dependent subsegmental atelectasis in the lungs. No acute appearing infiltrate or consolidation is seen. Pleural space: Unremarkable. No significant effusion. No pneumothorax. Heart: Borderline cardiomegaly. There is severe coronary calcification. No pericardial effusion is seen. No evidence of RV dysfunction. 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 No thrombus is seen. Bones/joints: Mild multilevel degenerative changes throughout the spine. No acute fracture or destructive bone lesion is identified. No dislocation. Soft tissues: Unremarkable. Lymph nodes: Unremarkable. No enlarged lymph nodes. IMPRESSION: 1. The pulmonary arterial tree is well opacified with contrast. No pulmonary emboli are identified. 2. 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 There are pacemaker leads on left running to the heart. No thrombus is seen. 3. Borderline cardiomegaly. There is severe coronary calcification. No pericardial effusion is seen. 4. The aortic arch is mildly calcified but nondilated. There is no aneurysm or dissection. 5. Trace amount of dependent subsegmental atelectasis in the lungs. No acute appearing infiltrate or consolidation is seen. Electronically signed by: Jose Antonio Siu MD 05/12/24 19:35 PM
[2024-05-13] MEDS: ONDANSETRON INJ 2 MG/ML 2 ML VIAL IV PRN (04:40)
[2024-05-13 07:27] VITALS: BP 140/70; TEMP 98.6
[2024-05-13] MEDS: CYANOCOBALAMIN (B-12) 500 MCG TABLET PO SCH (09:08)
[2024-05-13 09:50] VITALS: RESP 20; O2SAT 94
[2024-05-13 10:02] LABS: Basophils # (auto) 0.04 K/uL (0.00-0.20); Basophils % (auto) 0.4 %; Eosinophils # (auto) 0.01 K/uL (0.00-0.50); Eosinophils % (auto) 0.1 %; Hematocrit (blood only) 35.4 % (42.0-52.0); Hemoglobin 12.1 g/dl (14.0-18.0); Immature Granulocytes # (auto) 0.08 K/uL (0.01-0.20); Immature Granulocytes % (auto) 0.7 %; Lymphocytes # (auto) 2.74 K/uL (1.20-3.40); Lymphocytes % (auto) 25.6 %; Mean Corpuscular Hemoglobin 33.8 pg (25.0-34.0); Mean Corpuscular Hgb Conc 34.2 g/dL (32.0-36.0); Mean Corpuscular Volume 98.9 fL (80.0-100.0); Mean Platelet Volume 9.8 fL (9.4-12.4); Monocytes # (auto) 1.43 K/uL (0.11-0.59); Monocytes % (auto) 13.3 %; Neutrophils # (auto) 6.42 K/uL (1.40-6.50); Neutrophils % (auto) 59.9 %; Platelet Count 189 K/uL (130-400); RDW Coefficient of Variation 13.7 % (11.5-14.5); RDW Standard Deviation 50.4 fL (36.4-46.3); Red Blood Count 3.58 M/uL (4.70-6.10); White Blood Count 10.72 K/ul (4.8-10.8)
[2024-05-13 10:21] LABS: BUN Creatinine Ratio 24.2 (10-20); Calcium 9.1 mg/dl (8.6-10.3); Creatinine Clr Calc Pharmacy 82.3 ml/min; Potassium 4.2 mmol/L (3.5-5.1)
--- NOTE | 2024-05-13 11:37 | Hospitalist Progress Note ---
Date of Service May 13, 2024 Assessment & Plan (1) S/P total knee arthroplasty: (2) Osteoarthritis of right knee: (3) Paroxysmal A-fib: (4) CAD (coronary artery disease): (5) History of ST elevation myocardial infarction (STEMI): (6) Hx of cardiac arrest: (7) HTN (hypertension): (8) Dyslipidemia: (9) ICD (implantable cardioverter-defibrillator) in place: (10) T2DM (type 2 diabetes mellitus): Plan Patient is a 74 year old male with PMHx significant for HTN, HLD, CAD, STEMI s/p stent, H/O post-STEMI in hospital VF cardiac arrest, s/p defibrillator, paroxysmal atrial fibrillation, anticoagulated on Eliquis, DM II seen in medical consultation s/p Right TKA today by Dr Kumar. Pt also with noted acute hypoxia requiring oxygen supplementation on 05/12/24. Patient had imaging which noted some mild fluid in the lungs. Was given a dose of IV Lasix on 05/12/1901/21/2025. patient with noted improvement symptomatically and clinically by the next day. Had to step on the day of discharge which noted he did not require oxygen for home use. Patient is currently medically stable for discharge. He was previously treated for the following: S/P total knee arthroplasty Osteoarthritis of right knee Post op day#2 S/P Right TKA by Dr José TEAGUE#5ml Pain management per ortho Wound management per ortho PT/OT as appropriate DVT prophylaxis - ortho ordered home Eliquis to restart on 05/12/24 Incentive spirometry Monitor H&H for acute blood loss anemia; pre-op Hgb: 15, currently 12.1 on discharge Per Ortho recs for discharge include the following: "...should be able to go home with home nursing and PT for 2 weeks and then start outpatient physical therapy after that." please ensure close Ortho follow-up after discharge. Acute Hypoxic Respiratory failure Pt with increased oxygen requirement postop Also noted new leukocytosis Respiratory viral panel completely negative Chest XRAY noting small bilateral pleural effusions and cardiomegaly with pulm vasc congestion CTA chest ordered and noted no PE or acute process. 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 Primary team discharging on p.o. cefadroxil for 14 days. Can continue with that. Two step before discharge noting no oxygen needed at home Close PCP follow-up after discharge for continued monitoring and further workup. Paroxysmal A-fib Pacemaker in situ EKG postop noting sinus rhythm with RBBB Continue metoprolol succinate Anticoagulated on Eliquis. Eliquis has been on hold past 3 day. Ortho has ordered to restart 05/12/24 PCP and cardiology f/u after discharge CAD (coronary artery disease) History of ST elevation myocardial infarction (STEMI) Hx of cardiac arrest HTN (hypertension) Dyslipidemia ICD (implantable cardioverter-defibrillator) in place CAD History STEMI in 2020 s/p stents H/O post-STEMI in hospital VF cardiac arrest s/p defibrillator Continue aspirin, metoprolol succinate, rosuvastatin PCP and cardiology f/u after discharge T2DM (type 2 diabetes mellitus) A1c: 7.5 on 04/20/24 Held home meds, ISS per protocol PCP followup after dc, can resume home regimen Continue other home meds as prescribed Admission and Anticipated Discharge Date Admission Date: May 12, 2024 Subjective Pt was seen sitting up in bed, denied acute distress No longer needing oxygen had 2 step and it was determined that he did not need oxygen for home use Review of Systems Review of Systems: All systems reviewed & are unremarkable except as noted in Subjective Physical Exam Physical Exam: General: Alert, oriented. No acute distress Psych: Appropriate mood and affect HEENT: NC/AT CV: RRR Resp: NC in nares, Breath sounds clear bilaterally, no increased effort of breathing. No crackles/rhonchi/rales. Abdomen: Soft, nontender Extremities: RLE in bandages Results & Data Results & Data Vital Signs (Past 12 Hours) Vital Signs Temp Pulse Pulse Pulse Pulse Pulse Resp 05/13/24 09:30 20 05/13/24 08:45 92 H 83 05/13/24 07:38 72 05/13/24 07:26 37.0 C 78 18 05/13/24 04:38 36.3 C L 77 20 05/13/24 00:25 36.4 C L 74 20 05/12/24 23:41 Resp Resp BP Pulse Ox Pulse Ox Pulse Ox O2 Del Method 05/13/24 09:30 94 Room Air 05/13/24 08:45 18 18 93 93 05/13/24 07:38 05/13/24 07:26 140/70 92 Room Air 05/13/24 04:38 135/75 95 Nasal Cannula 05/13/24 00:25 173/99 H 93 Nasal Cannula 05/12/24 23:41 Nasal Cannula O2 Flow Rate 05/13/24 09:30 05/13/24 08:45 05/13/24 07:38 05/13/24 07:26 05/13/24 04:38 2 05/13/24 00:25 2 05/12/24 23:41 2 Diagnostic Findings Chest X-Ray 04/20/24 07:48 EXAM: Radiographs of the Chest 2 Views INDICATION: Undergoing preoperative evaluation. TECHNIQUE: Frontal and lateral views of the chest. COMPARISON: 08/10/2020 FINDINGS: Lungs and pleural spaces: There is now minimal scarring in the left lung base. No consolidation or pulmonary edema. No pleural effusion or pneumothorax. Heart: Stable enlargement and right atrial and ventricular pacing wires. Mediastinum: Stable prominent right paratracheal soft tissues likely vascular. Bones/joints: No fracture, erosion or dislocation. Vasculature: Stable ectatic aorta with mild calcification in the descending segment. IMPRESSION: Minimal scarring in the left lung base. Otherwise unchanged. ACT 112: Negative or not required by law. Electronically signed by Litzy Barnes 04-20-2024 6:49 PM Cervical Spine X-Ray 04/20/24 15:41 PROCEDURE: 2 views of the cervical spine CLINICAL INFORMATION: Preop, limited range of motion TECHNIQUE: 2 views of the cervical spine COMPARISON: None available FINDINGS: Normal cervical lordosis. No acute fracture or malalignment. C3-C4 and C5-C6 discogenic disease. No acute fracture or malalignment. IMPRESSION: C3-C4 and C5-C6 discogenic disease. No acute fracture or malalignment. No change in alignment on the flexion or extension view. This examination was dictated by John Young MD. Electronically signed by John Glez 04-20-2024 10:35 PM Knee X-Ray 05/11/24 12:48 XR knee RT 1 or 2V routine CLINICAL HISTORY: Surgical Post Op COMPARISON: None FINDINGS: Right knee prosthesis shows no hardware complication. There is expected soft tissue gas. There are postoperative drains. Skin zander are present. IMPRESSION: Unremarkable postoperative exam. ACT 112: Negative or not required by law. Electronically signed by: Anurag Silva M.D. 05/11/2024 1:16 PM Chest X-Ray 05/12/24 08:31 XR chest 1V portable HISTORY: 74 years-old Male hypoxia COMPARISON: 04/20/2024 TECHNIQUE: AP view of the chest FINDINGS: Cardiac silhouette is enlarged. Left subclavian pacer/AICD. Pulmonary vascular congestion. The lungs are mildly hypoinflated. Trace pleural effusions with mild bibasilar atelectasis. Bones appear grossly intact. Cannulated screw projects over the right humeral head. IMPRESSION: 1. Cardiomegaly with pulmonary vascular congestion. 2. Trace pleural effusions. ACT 112: Negative or not required by law. The above report was generated using voice recognition software. It may contain grammatical, syntax or spelling errors. Electronically signed by: Juan Miranda M.D. 05/12/2024 9:19 AM Chest CTA 05/12/24 16:00 Exam(s): CTA CHEST IV Amt: 115 ml optiray 320 EXAM: CT Angiography Chest With Intravenous Contrast CLINICAL HISTORY: Reason for exam: PE. TECHNIQUE: Axial computed tomographic angiography images of the chest with intravenous contrast. CTDI is 23.75 mGy and DLP is 824.38 mGy-cm. Automated exposure control was utilized for the study. A dose lowering technique was utilized adhering to the principles of ALARA. MIP reconstructed images were created and reviewed. COMPARISON: Chest x-ray from May 12, 2024 FINDINGS: Pulmonary arteries: The pulmonary arterial tree is well opacified with contrast. No pulmonary emboli are identified. Aorta: The aortic arch is mildly calcified but nondilated. There is no aneurysm or dissection. Lungs: Trace amount of dependent subsegmental atelectasis in the lungs. No acute appearing infiltrate or consolidation is seen. Pleural space: Unremarkable. No significant effusion. No pneumothorax. Heart: Borderline cardiomegaly. There is severe coronary calcification. No pericardial effusion is seen. No evidence of RV dysfunction. 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 No thrombus is seen. Bones/joints: Mild multilevel degenerative changes throughout the spine. No acute fracture or destructive bone lesion is identified. No dislocation. Soft tissues: Unremarkable. Lymph nodes: Unremarkable. No enlarged lymph nodes. IMPRESSION: 1. The pulmonary arterial tree is well opacified with contrast. No pulmonary emboli are identified. 2. 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 There are pacemaker leads on left running to the heart. No thrombus is seen. 3. Borderline cardiomegaly. There is severe coronary calcification. No pericardial effusion is seen. 4. The aortic arch is mildly calcified but nondilated. There is no aneurysm or dissection. 5. Trace amount of dependent subsegmental atelectasis in the lungs. No acute appearing infiltrate or consolidation is seen. Electronically signed by: Jose Antonio Siu MD 05/12/24 19:35 PM (2) Osteoarthritis of right knee Osteoarthritis type: primary Qualified Code(s): M17.11 - Unilateral primary osteoarthritis, right knee
[2024-05-13 13:03] VITALS: PULSE 77
--- NOTE | 2024-05-13 13:07 | Orthopedic Progress Note ---
Date of Service May 13, 2024 Assessment & Plan (1) Osteoarthritis of right knee: Plan: Postop day #2 status post right total knee arthroplasty PT/OT DVT prophylaxisEliquis and aspirin, WALT stockings Pain controlas written Weight-bear as tolerated right lower extremity. Discharge planningplan for home with home health today if medically cleared. Admission and Anticipated Discharge Date Admission Date: May 12, 2024 Subjective Patient states that the right knee has been doing well. Pain is controlled in the knee. He would like to be discharged today whether his oxygen levels are high enough or not. No new complaints today. Physical Exam Constitutional: WD/WN, vitals as above no acute distress Musculoskeletal: Knee: + surgical incision (Dressing C/D/I); no skin erythema and no ecchymosis Skin: no rashes, warm and dry Trauma: no evidence of skin trauma Neurologic: normal touch/pain/proprioception (Right foot dorsiflexion intact.) Psychiatric: A+Ox3, euthymic affect Speech: normal rate/rhythm/volume of speech Results & Data Vital Signs (Past 12 Hours) Vital Signs Temp Pulse Pulse Pulse Pulse Pulse Resp 05/13/24 13:01 37.0 C 78 77 20 05/13/24 09:30 20 05/13/24 08:45 92 H 83 05/13/24 08:00 05/13/24 07:38 72 05/13/24 07:26 37.0 C 78 18 05/13/24 04:38 36.3 C L 77 20 Resp Resp BP Pulse Ox Pulse Ox Pulse Ox O2 Del Method 05/13/24 13:01 140/70 94 05/13/24 09:30 94 Room Air 05/13/24 08:45 18 18 93 93 05/13/24 08:00 Room Air 05/13/24 07:38 05/13/24 07:26 140/70 92 Room Air 05/13/24 04:38 135/75 95 Nasal Cannula O2 Flow Rate 05/13/24 13:01 05/13/24 09:30 05/13/24 08:45 05/13/24 08:00 05/13/24 07:38 05/13/24 07:26 05/13/24 04:38 2 (1) Osteoarthritis of right knee Osteoarthritis type: primary Qualified Code(s): M17.11 - Unilateral primary osteoarthritis, right knee
--- NOTE | 2024-05-13 13:54 | Pharmacy Report ---
Pharmacy Glycemic Short Note 2 - Date of Service May 13, 2024 - Glycemic Short BSG Results (Last 24 hours): 05/12/24 05/12/24 05/13/24 16:37 20:20 08:06 Glucose POC Glucose 114 H 151 H 176 H 05/13/24 05/13/24 09:33 12:03 Glucose 244 H POC Glucose 184 H OUTPATIENT ANTIDIABETIC REGIMEN: * metformin 500 mg PO BIDM HbA1c: 7.5% (04/20/24) ASSESSMENT: 05/13/24: * BSGs mildly elevated over patients goal range of 110-140 with BSG peaking at 244 this morning, 184 at lunch time; could be stress from infection or lingering effects of dexamethasone dose on 05/11. * Will reassess tomorrow before making new changes considering patient is relatively well controlled majority of admission. 05/12/23: * GH is a 74 year old male POD #1 s/p right total knee arthroplasty * Received 8 mg IV dexamethasone in OR, no steroids ordered ongoing * Hyperglycemic following surgery, but will loosen insulin regimen slightly today since steroids have been discontinued * Will continue to follow, anticipate only minor changes PLAN FOR INPATIENT GLYCEMIC CONTROL: * Hold outpatient oral diabetes medications * Basal insulin * Lantus 10 units SQ daily (~0.1 unit/kg) * Bolus insulin * NovoLog per scale ACHS or Q6hrs while NPO * Goal Range: Low 110 mg/dL - High 140 mg/dL * Correction Factor: 20 mg/dL/unit * Nutritional / Prandial insulin per carb ratio of 1 unit per 6 grams CHO consumed
--- NOTE | 2024-05-18 10:04 | Discharge Summary ---
Date of Service May 18, 2024 Admission HPI Per Admitting Provider 74-year-old male with chronic right knee pain failed conservative management. Patient denies headaches, sweats, fevers, chills, double vision, blurred vision, cough, sore throat, dysphagia, chest pain, sob at rest, wheezing, n/v/d/c, numbness, tingling, fatigue, urinary symptoms, mood disorders. ROS positive for chronic cough, pacemaker defibrillator, short of breath running short distance walking up a hill or climbing a flight of stairs. Generalized osteoarthritis. Difficulty waking up from anesthesia. Principal Diagnosis Right knee osteoarthritis Discharge Exam Constitutional WD/WN, vitals as above no acute distress Musculoskeletal Knee: + surgical incision (Dressing C/D/I); no skin erythema and no ecchymosis Skin no rashes, warm and dry Trauma: no evidence of skin trauma Neurologic normal touch/pain/proprioception (Right foot dorsiflexion intact.) Psychiatric A+Ox3, euthymic affect Speech: normal rate/rhythm/volume of speech Discharge Data Allergies Allergy/AdvReac Type Severity Reaction Status Date / Time hyaluronic acid Allergy Severe Severe Verified 05/11/24 06:56 knee swelling (with knee injection) diclofenac Allergy Intermediate Rash (with Verified 05/11/24 06:56 voltaren gel) Sulfa (Sulfonamide Allergy Intermediate Hives Verified 05/11/24 06:56 Antibiotics) amoxicillin AdvReac Mild Nausea, Verified 05/11/24 06:56 vomiting Penicillins AdvReac Mild Nausea, Verified 05/11/24 06:56 vomiting Consultations 05/09/24 11:19 Consult Hospitalist Routine 05/11/24 15:48 Consult Hospitalist Routine Procedures Performed Operation Date: 05/11/24 09:40 Actual Procedures p Right Total Knee Arthroplasty, Cemented(Right) - Aric Kumar MD Ordered Studies 05/11/24 05:00 US - OR guided needle placemen Routine 05/12/24 16:00 CT angio chest PE protocol Urgent Hospital Course (1) Osteoarthritis of right knee: Postop day #2 status post right total knee arthroplasty PT/OT DVT prophylaxisEliquis and aspirin, WALT stockings Pain controlas written Weight-bear as tolerated right lower extremity. Discharge planningplan for home with home health today if medically cleared. Total Time Total Time Spent Total Time Spent (In Minutes): 30 Discharge Plan Discharge Items Patient Disposition: Home - Self-Care Reason For Visit: Right Knee Osteoarthritis Discharge Diagnosis: Right knee osteoarthritis Activity: Per Instructions section Non-emergency contact: Surgeon Call non-emergency contact if: your pain is not controlled, your pain is worsening and your temperature is above 101 Follow-up/Referrals: Mario Huitron MD [Primary Care Provider] - (Date & Time 05/19/2024 10:20 AM Provider: Mario Huitron MD Department: [facility], [facility] ) Diet: Regular Addtl Attending Provider Instructions: ACTIVITY RECOMMENDATIONS: SELF CARE INSTRUCTIONS AFTER TOTAL KNEE REPLACEMENT A. You may need to continue a physical therapy program after discharge from the hospital. There are several options available to you. Your doctor will assist you in selecting the best one for you. 1. An out-patient facility 3 times a week for therapy. 2. Home therapy for 1 to 2 weeks with outpatient therapy to follow. 3. Continue working on all exercises taught by physical therapy three times a day for 20 minutes on non-therapy days. Your goals should be to increase the bending of your knee to 90 degrees and beyond and to fully straighten your knee. Ice and elevate knee after exercise. B. Weight as tolerated with a walker or as instructed by your physician. C. It is okay to shower if minimal to no drainage from incision. No Baths. Do not soak wound. D. Make walking a part of your daily routine. Be up as much as comfortable with rest periods throughout the day. Rest with leg elevation is very important. Use the ice wrap frequently for the first 3-4 weeks. E. There are no restrictions on activities. You may ride in a car, shop, participate in chief dietitian and all social activities. F. Wear the long elastic stockings (WALT hose) 20 hours a day for one month after surgery. They can be removed several times a day for laundering and when showering. G. You may return to previous diet. H. PABLO dressing: You have a PABLO dressing on your surgical wound. It will remain in place for 7 days from surgery. You will be provided with a booklet with the do's and don'ts with the dressing in place. After 7 days, the dressing may be removed. If there is drainage from the surgical incision, you may cover the wound with dry dressings SPECIAL CARE INSTRUCTIONS: VERY IMPORTANT TO READ AND REVIEW A. Take Coumadin, Xarelto, Aspirin or Lovenox (blood thinning medications) as directed by your doctor. If on Coumadin, have a pro-time (blood test) drawn according to your doctor's instructions. This will tell the doctor how well the Coumadin is thinning your blood. B. There are a few signs you need to watch for after you are home. Call [facility] if you notice any of the followin. Increased severe knee pain. Some pain is expected especially when you exercise. 2. Increased swelling in your leg or knee; pain or swelling of the calf muscle in either lower leg. 3. Any redness or fluid drainage from the incision. 4. Shortness of breath or chest pain. 5. A Temperature of 101 degrees F or greater. C. Please call [facility] at if you have any concerns or questions about your operation or recovery. The doctor or his nurse will return your call promptly. D. You must take antibiotics before dental work, bladder, bowel or other surgery. Your doctor will provide you with a permanent care to carry describing this precaution. FOLLOW UP VISIT: If appointment is not already scheduled: Please call [facility] to make a follow-up appointment for 2 weeks after your surgery at . Addtl Probation Worker Provider Instructions: You were also noted to be short of breath requiring oxygen supplementation. After further imaging, we treated you with some IV Lasix as there was a little bit of fluid in your lungs. By the next day you no longer needed oxygen. We did test you to determine if you needed oxygen for home use. This test revealed that you did not. Please keep close follow-up with your primary care provider after discharge as well as with orthopedics noted above. Please do not hesitate to come back to the emergency room if your symptoms worsen or return. It was a pleasure taking care of you while you were here. Pending Studies at Discharge: No Stand-Alone Forms: [employer], Smoking Cessation Medications and DC Order Prescriptions: New cefadroxil 500 mg capsule 500 mg PO Q12H Qty: 28 0RF oxycodone 5 mg tablet 5 mg PO Q8H PRN (Reason: pain) Qty: 20 0RF acetaminophen [Tylenol Extra Strength] 500 mg tablet 1,000 mg PO Q8H Qty: 90 0RF Continued metformin 500 mg tablet extended release 24 hr 500 mg PO BID cyanocobalamin (vitamin B-12) 1,000 mcg Capsule 1,000 mcg PO Q2D metoprolol succinate 50 mg Tablet Extended Release 24 Hr 50 mg PO QAM Qty: 30 0RF aspirin 81 mg Tablet,Delayed Release (Dr/Ec) 81 mg PO QAM Qty: 30 0RF famotidine 20 mg Tablet 20 mg PO QAM nitroglycerin 0.4 mg Tablet, Sublingual 0.4 mg sublingual UD PRN (Reason: Chest Pain) albuterol sulfate 90 mcg/actuation Hfa Aerosol Inhaler 1 inh INHALATION QID PRN (Reason: sob) apixaban 5 mg Tablet 5 mg PO BID Realtime Pain Relief 1 dose topical DAILY PRN (Reason: wrist pain) rosuvastatin 20 mg tablet 20 mg PO DAILY Discharge Orders: Discharge Order (Routine); Ordered 05/13/24 Ordered By: Coral Toledo Admission Data Admit Date/Time: 05/12/24 17:26 Attending Provider: Aric Kumar Admit Provider: Aric Kumar Primary Care Provider: Mario Huitron Other Providers: [facility]; Bar Martínez; Coral Toledo Other Interventions: Discharge Summary Assessment (RN) Last Done: 05/13/24 13:01
== END 2024-05-13 13:53 | disposition home or self-care (01) | DRG 469 ==
LOC: ASU 06:16 → PACUINP 06:16 → 3E 15:33 → 2N 05-12 19:05